=== PATIENT | female | born 1985 | race Caucasian/White ===

== ENCOUNTER → 2018-03-17 12:10 | Outpatient (REF) | payer MEDICAID, SELFPAY ==
--- NOTE | 2018-03-17 11:45 | PAPFT_PTH ---
PATIENT: Nicole Arita LOC: [facility] U#:[id number] AGE/SX: 40/F ROOM: RE03/17/[address]: OLEG Vargas : 1985 BED: DIS: SPEC #: [id number] RECD: 03/17/18 17:56 STATUS: KECIA REQ #: [id number] BILLY: 03/17/18 11:[address]: Jazlyn Rivera DEPT: [facility] Cytology RECD BY: Ramona Soares ENTERED: 03/17/18 17:56 SP TYPE: PAPFT OTHR DR: Sunita Lamar Tissues: 1 - CX/ENDOCX FOR PAP SMEARS Procedures: PAP THIN PREP/UVM Screening HPV DNA PROBE Comments: [id number]
[2018-03-18 14:53] LABS: Chlamydia Result Negative; GC Result Negative; Specimen Description CERVIX
== END ==
LOC: LBN 12:10
PROVIDERS: PCP Nurse Practitioner Adult Health; Visit Provider Nurse Practitioner Family
DX: Z11.3 Encounter for screening for infections with a predominantly sexual mode of transmission (principal); Z12.4 Encounter for screening for malignant neoplasm of cervix; Z11.51 Encounter for screening for human papillomavirus (HPV)
CPT/HCPCS: 87491; 87591; 88142; 87624

== ENCOUNTER 2020-06-15 16:54 | Emergency (ER) | payer MEDICAID, SELFPAY ==
[2020-06-15] VITALS (29 sets, daily range): BP systolic 99–120; BP diastolic 56–70; PULSE 82–103; RESP 10–21; TEMP 36.4; O2SAT 98–100
--- NOTE | 2020-06-15 16:45 | RT.EKG_ITS ---
APPROVED REPORT Exam: Resting ECG Patient Location: E HR:90 bpm ECG Measurements Heart Rate 90 AXIS [place] 132 P 52 QRSd 72 QRS 64 QT 354 T 45 QTc 434 Conclusion Sinus rhythm...normal P axis, V-rate 60- 99 normal sinus rhythm at 90, normal axis, no acute ischemic changes, no STEMI, nondiagnostic EKG
--- NOTE | 2020-06-15 17:21 | ED.GENADUL_ITS ---
Discharge Plan Disposition Patient Disposition: HOME Condition: Stable Discharge Details Clinical Impression: Chest pain, MA (dyspnea on exertion) Primary Care Provider: Sunshine Mccall ED Provider: Jn Ashton Home Meds and New Rx's Prescriptions: No Action No Known Home Meds RF: 0 Discharge Instructions Instructions: Chest Pain (ED), Dyspnea (ED) Additional Instructions: Please return immediately to the emergency department if you develop any new or worsening symptoms, if your condition does not improve as expected, or if you become otherwise concerned. It is extremely important that you call soon as possible to make an appointment to be seen in follow-up for this visit by your primary care doctor. Stand Alone Forms: PENDING COVID-19 TESTING Referrals: Sunshine Mccall [Primary Care Provider] - Discharge Data Discharge Date/Time-TO BE ENTERED AT DEPARTURE: 06/15/20 21:23 Medical Decision Making <Sara Huston MD - Last Filed: 06/29/20 22:44> Nicole Arita is a 35 y/o woman who presented to the emergency department with several days of chest heaviness/tightness worse with rest/lying flat and a sensation of increased shortness of breath during exertion. On exam Pt is well and non-toxic appearing. Benign cardiopulmonary exam. Concern for ACS (low risk by HEART score), PE, covid, other resp infection, pericarditis, other. Exam/hx at this time not c/w acute aortic pathology, sepsis. Plan for EKG, CXR, screening labs. If initial trop/EKG neg, plan for repeat. EKG okay. Labs reviewed, trop negative, d-dimer 294. CXR negative. Pt with no symptoms at reassessment. Repeat EKG neg. Pt signed out to Dr. Ashton at time of shift change with repeat trop, reassessment pending. Medical Records Medical records reviewed: Yes I reviewed the patient's medical records. Imaging Data Radiologic Study: Attestation: I personally reviewed and interpreted this imaging study as follows: Lab Data Lab results reviewed: Yes I reviewed the patient's lab results. ECG Data Attestation: I personally reviewed and interpreted this ECG (s) as follows: Interpretation: EKG shows normal sinus rhythm at 90, normal axis, no acute ische treva changes, no STEMI, nondiagnostic EKG Repeat EKG shows normal sinus rhythm at 87, normal axis, no acute ischemic changes, no major change from prior, nondiagnostic EKG <Jn Ashton MD - Last Filed: 06/15/20 21:18> Patient signed out to me pending repeat troponin. She had presented with CP and SOB and initially evaluated by Dr. Huston, please see her notes. Patient feeling better and asking for discharge. Repeat troponin is negative. COVID testing is pending. Patient to be discharged home. Lab Data Lab results reviewed: Yes I reviewed the patient's lab results. HPI <Sara Huston MD - Last Filed: 06/29/20 22:44> General Mode of arrival: ambulatory . Date/Time Provider Initiated Documentation: 06/15/20 17:00 . Limitations to Documentation: no limitations . Information obtained by: patient, RN notes reviewed and old records reviewed . HPI Narrative: Nicole Arita is a 35-year-old woman without reported history of major medical problems presenting to emergency department with chest pain, palpitations. Patient reports that approximate 5 days ago she noticed intermittent heaviness/tightness in her chest. Patient reports that this occurs several times throughout the day. Patient reports that since yesterday this sensation has been constant. She reports that it seems to improve with getting up and walking around and is more noticeable when she is lying down. Patient reports that yesterday and today she also noticed that with exertion such as climbing a flight of stairs she was developing a sensation of her heart racing and being unusually short of breath with that activity. Patient reports that she is a smoker and has a baseline cough that has not changed. She denies any other pain, fevers, vomiting, diarrhea, numbness, weakness, rash, swelling. Patient reports that she has no shortness of breath at rest. Patient states that she feels that her chest is currently somewhat tight but would not classify it as pain. She denies any personal or immediate family history of blood clot. Currently is taking no medications. Denies alcohol use, recreational drug use. Related Data Home Medications Medication Instructions Recorded Confirmed Unknown [No Known Home Meds] 06/15/20 06/15/20 Allergies Allergy/AdvReac Type Severity Reaction Status Date / Time No Known Drug Allergies Allergy Unverified 06/15/20 17:10 General Stated Complaint: Chest Pain CELSO: 2 Review of Systems <Sara Huston MD - Last Filed: 06/29/20 22:44> Narrative: Constitutional: denies fevers Eyes: denies eye pain ENT: denies ear pain, dental pain, sore throat Cardiovascular: denies edema, reports heart racing, chest pain Respiratory: reports chronic cough at baseline, MA GI: denies abdominal pain, vomiting, diarrhea : denies flank pain MSK: denies back pain, neck pain, arthralgias, myalgias Skin: denies rash Neuro: denies headaches, numbness, weakness PFSH <Sara Huston MD - Last Filed: 06/29/20 22:44> Surgical History (Updated 03/17/18 @ 12:17 by Jazlyn Rivera NP) Cervical Procedure LEEP in her late teens Family History Grandmother Breast cancer maternal Thyroid disorder maternal Social History Smoking/Tobacco Use Status: Current every day Smoking risk assessment performed?: Yes Alcohol Intake: never Drug use: Never Substance use type: does not use Do you feel safe at home: Yes Do you feel safe in your relationship?: Yes Exam <Sara Huston MD - Last Filed: 06/29/20 22:44> Narrative Exam Narrative: Constitutional: well and [id number], pleasant, conversing normally HENT: head atraumatic/normocephalic/normal inspection, mucous membranes moist Eyes: conjunctiva normal, sclera normal, pupils 3mm b/l Neck: no stridor, normal ROM, trachea midline Chest: normal inspection Resp: normal work of breathing, LCTAB Cardio: normal rate, normal rhythm, no murmur appreciated GI: abdomen soft, non-tender, non-distended Back: normal inspection, no rash Skin: warm, dry, normal color, no rash Neuro: alert, not altered, grossly non-focal, normal tone Ext: no edema, no posterior calf TTP Psych: normal mood, normal affect, normal behavior Course <Sara Huston MD - Last Filed: 06/29/20 22:44> Vital Signs Vital signs: Vital Signs Temperature 36.4 C L 06/15/20 17:03 Pulse 86 06/15/20 17:03 Respiratory Rate 16 06/15/20 17:03 Blood Pressure 120/70 06/15/20 17:03 Pulse Oximetry 100 06/15/20 17:03 Temperature 36.4 C L 06/15/20 17:03 Temperature Source Temporal Artery Scan 06/15/20 17:03 Pulse 86 06/15/20 17:03 Respiratory Rate 16 06/15/20 17:03 Respiratory Effort 06/15/20 17:09 Blood Pressure 120/70 06/15/20 17:03 Blood Pressure Position Supine 06/15/20 17:03 Pulse Oximetry 100 06/15/20 17:03 Oxygen Delivery Method Room Air 06/15/20 17:03 Oxygen Flow Rate 0 06/15/20 17:03 Pain Level 7 06/15/20 17:03 Sign Out <Sara Huston MD - Last Filed: 06/29/20 22:44> Sign Out Data: Sign Out Comment: Patient signed out to Dr. Ashton with repeat troponin, reassessment pending Last updated by Sara Huston MD at 06/15/20 20:43
[2020-06-15] MEDS: Normal Saline 1,000 ML 1000 ML IV ×2 (18:00→20:24)
[2020-06-15 18:32] LABS: Abs Immature Grans 0.01 10^3/uL (0.0-0.06); Absolute Basophil Count 0.07 10^3/uL (0.0-0.2); Absolute Eosinophil Count 0.27 10^3/uL (0.0-0.7); Absolute Lymphocyte Count 3.29 10^3/uL (1.2-3.4); Basophils % 0.8; Eosinophils % 2.9; HCT 36.6 % (36.0-46.0); HGB 11.9 g/dL (11.2-15.7); Immature Grans % 0.1; Lymphocytes % 35.6; MCHC 32.5 % (32.0-36.0); Monocytes % 6.5; Neutrophils % 54.1; Nucleated RBC 0 %; Platelet Count 172 10^3/uL (130-400); RBC 4.41 10^6/uL (3.93-5.22); RDW 14.9 % (11.7-14.6); RDW-SD 45.4 fL; WBC 9.24 10^3/uL (4.4-10.8)
[2020-06-15 18:42] LABS: ALT 10 U/L (14-59); AST 8 U/L (15-37); Albumin 4.1 g/dL (3.4-5.0); Alkaline Phosphatase 52 U/L (46-116); Anion Gap 9.6 mmol/L (3-11); BUN 14 mg/dL (7-18); Bilirubin, Total 0.2 mg/dL (0.2-1.0); CO2 25.4 mmol/L (21.0-32.0); CREATININE 0.83 mg/dL (0.55-1.02); Calcium 8.7 mg/dL (8.5-10.1); Chloride 105 mmol/L (98-107); Glucose 79 mg/dL (74-106); Potassium 3.7 mmol/L (3.5-5.1); Sodium 140 mmol/L (136-145); Total Protein 7.4 g/dL (6.4-8.2)
[2020-06-15 18:48] LABS: Troponin I < 0.05 ng/mL (<0.06)
[2020-06-15 19:20] LABS: D-Dimer 294 ng/mlFEU (<500)
--- NOTE | 2020-06-15 20:21 | DI.RAD_ITS ---
EXAM: XR PORTABLE CHEST AP CLINICAL HISTORY: SOB TECHNIQUE: 2D digital imaging was performed. COMPARISON: CR CHEST 2 VIEWS PA,LAT from 09/22/2013 FINDINGS: MEDIASTINUM: Normal. HEART: Normal. PULMONARY VASCULATURE: Normal. LUNGS: Clear. PLEURAL SPACE: No pleural effusion or pneumothorax. BONE:Within normal limits for the patient's age. OTHER FINDINGS:Normal. IMPRESSION: No acute pulmonary findings. DATA REPOSITORY: RADIATION DOSE DELIVERED:
--- NOTE | 2020-06-15 20:26 | DI.VRAD_ITS ---
PROCEDURE INFORMATION: Exam: XR Chest, 1 View Exam date and time: 06/15/2020 8:14 PM Age: 35 years old Clinical indication: Chest pain; Type not specified; Patient HX: SOB TECHNIQUE: Imaging protocol: XR of the chest Views: 1 view. COMPARISON: CR CHEST 2 VIEWS PA,LAT 09/22/2013 8:19 AM FINDINGS: Lungs: The lungs are clear. There is no pulmonary vascular congestion. Pleural space: No layering pleural effusions are identified. There is no evidence of pneumothorax. Heart/Mediastinum: The cardiomediastinal silhouette is within limits. Bones/joints: Unremarkable. IMPRESSION: No active cardiopulmonary disease identified. Unchanged exam. Dictated and Authenticated by: Luis Kim MD. Ordering:JOSSELYN Ruiz MD
--- NOTE | 2020-06-15 20:30 | RT.EKG_ITS ---
APPROVED REPORT Exam: Resting ECG Patient Location: E HR:87 bpm ECG Measurements Heart Rate 87 AXIS GA 153 P 9 QRSd 75 QRS 1 QT 364 T 22 QTc 438 Conclusion Sinus rhythm...normal P axis, V-rate 60- 99 normal sinus rhythm at 87, normal axis, no acute ischemic changes, no major change from prior, nondia gnostic EKG
[2020-06-15 20:56] LABS: Troponin I < 0.05 ng/mL (<0.06)
[2020-06-19 15:41] LABS: Patient Race White; SARS-CoV-2 RNA Undetected (Undetected); SARS-CoV-2 Specimen Source Nasopharynx
--- NOTE | 2020-06-19 17:05 | NUR.NOTE ---
06/19/2020 @ 1704 left mssage to return call to ED for test results.
--- NOTE | 2020-06-19 17:22 | NUR.NOTE ---
patient returned call and after verifying identity, advised pt. that covid test result was negative.
== END 2020-06-15 21:23 | disposition home or self-care (01) ==
PROVIDERS: Student in an Organized Health Care Education/Training Program; Emergency Provider Emergency Medicine; PCP Nurse Practitioner
DX: R07.89 Other chest pain (principal); R06.09 Other forms of dyspnea; R00.2 Palpitations; Z11.59 Encounter for screening for other viral diseases
CPT/HCPCS: 36415; 80053; 93005; 96361; 99285; U0003; 71045; 84484; 85025; 85379; 93010; 99284

== ENCOUNTER 2021-08-14 18:47 | Emergency (ER) | payer BC, MEDICAID, SELFPAY ==
[2021-08-14 18:57] VITALS: BP 110/62; PULSE 81; RESP 18; TEMP 36.6; O2SAT 100
--- NOTE | 2021-08-14 19:39 | W.ED.GENAD ---
Discharge Plan Disposition Patient Disposition: HOME Condition: Stable Discharge Details Clinical Impression: Anemia, , Nausea and vomiting during Primary Care Provider: Sunshine Mccall ED Provider: Leti Hamilton Home Meds and New Rx's Prescriptions: New ondansetron 4 mg tablet,disintegrating 4 mg PO Q6H PRN (Reason: nausea and vomiting) Qty: 10 RF: 0 Discharge Instructions Instructions: Ondansetron (By mouth), Acute Nausea and Vomiting (ED), Anemia (ED) Additional Instructions: Your labs are concerning for anemia. As we discussed, you do have some pending studies for this. I would like you to discuss this with your MEDICAL STAFF MANAGER tomorrow at your upcoming appointment. As we discussed, you will likely need to begin an iron supplement. Your urine did show dehydration. You received a liter of fluids here and are tolerating oral fluids well. You were given Zofran while here and we are sending you home with the same. You may use 1 tablet dissolving under your tongue every 6 hours as needed for any recurrent severe nausea or vomiting. Please encourage hydration. Please advance her diet slowly and begin with simple/easy digest food such as bananas, rice, applesauce, toast. If he develop fever/chills, abdominal pain, inability stay hydrated, vaginal discharge, cramping, fever/chills or new/worsening symptoms please seek care urgently once again. Referrals: Sunshine Mccall [Primary Care Provider] - Christine Cobb MD [ [facility] STAFF PHYSICIAN] - Medical Decision Making Patient is a pleasant 36-year-old female presenting today with chief complaint of nausea and vomiting. Patient reports that she has recently had a positive home test and estimates herself to be 6 weeks gestation. She has not yet seen MEDICAL STAFF MANAGER but does have an appointment with them tomorrow. She states that she has had 4 previous pregnancies, her youngest child is 11. She reports that with 2 of her pregnancies she suffered from hyperemesis gravidarum. She reports that she had normal pregnancies otherwise with spontaneous vaginal deliveries. She reports that for the past week she has had persistent nausea and diminished appetite. Over the past few days has had vomiting. States that she has vomited x3 today. Denies any blood in her emesis. No change in her bowel habits. She denies any abdominal pain. No fevers or chills. No previous abdominal surgeries. Denies any vaginal discharge from the cramping or bleeding. On exam, patient appears nontoxic. Vital signs are stable. Lungs are clear to minimal cardiac exam. Abdomen is benign. No CVA tenderness. Primarily concerned at this time for dehydration and nausea/vomiting in the setting of the first trimester . We will obtain urine test. We will also obtain CBC and CMP as I am concerned for potential electrolyte abnormalities. Her exam and history is not consistent with ovarian torsion or other surgical pathology of her abdomen. Patient feeling significantly improved after IV Zofran and liter of fluids. She is tolerating fluid orally now here. Labs reviewed. No leukocytosis. Patient is notably anemic with a hemoglobin of 8.9. She has been anemic historically but not to this degree and has not 2014. I did discuss with the patient. Her MCV is low. I did send out iron and ferritin studies. Patient is feeling so clinically improved, will have her discuss the results of this tomorrow with her MEDICAL STAFF MANAGER at her follow-up appointment. She reports that since receiving her COVID-19 vaccination several months ago she been having significantly heavier periods and feeling like I am going to bleed to . Clearly, this stopped with her but may be the cause of her anemia today. I did recommend beginning iron supplementation. Patient is vegetarian and would like to try more of a plant blade regimen and will discuss tomorrow with obstetrics. CMP is without significant abnormality. Her urine is significant for dehydration with an elevated specific gravity ketones. No protein in the urine or evidence to suggest infection. Discussed the findings with the patient. Patient feels ready for discharge at this time. Encourage frequent sips of fluids and hydration. We did discuss slow advancement of her diet. We will send home with Francesco for tonight and prescribe some for her tomorrow at the pharmacy. She has an appointment tomorrow with MEDICAL STAFF MANAGER. Strict return precautions were discussed. All of her questions concerns were addressed and she is in agreement with this plan. HPI General Mode of arrival: ambulatory. Date/Time Provider Initiated Documentation: 08/14/21 18:48. Limitations to Documentation: no limitations. Information obtained by: patient and RN notes reviewed. History of Present Illness 36 year old F presents to the emergency department with the chief complaint of dehydration, nausea/vomiting in first trimester of , described as moderate and similar to prior episodes (hx of hyperemesis gravidum with 2 of her previous pregnancies), Quality is described as other (patient denies any pain, only sensation has been nausea), and is localized to the abdomen. Patient reports no radiation. Patient started experiencing this week(s) (1) and it has been constant. No relieving factors improve symptom(s), Eating worsens symptoms . Patient notes loss of appetite, nausea/vomiting and other (denies abdominal pain, cramping, vaginal discharge or bleeding); denies chest pain, cough, fever/chills, rash and shortness of breath. Patient did receive the following treatments prior to arrival, none Related Data Home Medications Medication Instructions Recorded Confirmed ondansetron 4 mg PO Q6H PRN #10 tab 08/14/21 Previous Rx's Medication Instructions Recorded ondansetron 4 mg PO Q6H PRN #10 tab 08/14/21 Allergies Allergy/AdvReac Type Severity Reaction Status Date / Time No Known Drug Allergies Allergy Unverified 06/15/20 17:10 General Stated Complaint: Nausea/Vomit/Diar CELSO: 3 Review of Systems Constitutional Constitutional: Reports as per HPI, Denies chills, Reports fatigue, Denies fever(s) and Reports poor appetite Cardiovascular Cardiovascular: Reports as per HPI, Denies chest pain and Denies dyspnea Respiratory Respiratory: Reports as per HPI, Denies cough and Denies dyspnea Gastrointestinal Gastrointestinal: Reports as per HPI, Denies abdominal pain, Denies change in bowel habits, Reports nausea, Reports vomiting and Denies hematemesis Genitourinary Genitourinary: Denies abnormal vaginal bleeding, Reports amenorrhea (6wks gestation), Denies hematuria and Denies vaginal discharge Musculoskeletal Musculoskeletal: Reports as per HPI and Denies back pain Integumentary/Breasts Skin/Breast: Reports as per HPI and Denies rash Neurologic Neurologic: Reports as per HPI Endocrine Endocrine: Reports fatigue PFSH All Active Problems (Updated 08/14/21 @ 20:48 by ANITRA Le) Anemia (Chronic) (Acute) Nausea and vomiting during (Acute) Surgical History Cervical Procedure LEEP in her late teens Family History Grandmother Breast cancer maternal Thyroid disorder maternal Social History Smoking/Tobacco Use Status: Current every day Smoking risk assessment performed?: Yes Alcohol Intake: never Drug use: Never Substance use type: does not use Do you feel safe at home: Yes Do you feel safe in your relationship?: Yes Exam Const General: cooperative, healthy appearing, comfortable, no acute distress and well developed Nutritional Appearance: average body habitus and well nourished Orientation: alert and awake Resp Effort & Inspection: normal respiratory effort, able to speak in complete sentences and no respiratory distress Auscultation: clear to auscultation bilaterally, no rales, no rhonchi and no wheezes Cardio Rate: regular rate Rhythm: regular rhythm Heart Sounds: S1 normal and S2 normal GI Inspection: normal to inspection Palpation: soft, no hepatosplenomegaly, not firm, no guarding, no masses, not rigid and nontender Percussion: normal to percussion Auscultation: normal bowel sounds Back/Spine/Pelvis Back: no CVA tenderness Skin General skin exam: no rashes or lesions noted Trauma: no lacerations or abrasions Neuro General: patient alert and patient awake Cognition: normal cognition Speech: speech normal Gait: normal gait Psych Appearance: grossly normal and well kempt Mental Status: mental status grossly normal Speech and Movement: speech and movement normal Course Vital Signs Vital signs: Vital Signs Temperature 36.6 C 08/14/21 18:57 Pulse 81 08/14/21 18:57 Respiratory Rate 18 08/14/21 18:57 Blood Pressure 110/62 08/14/21 18:57 Pulse Oximetry 100 08/14/21 18:57 Temperature 36.6 C 08/14/21 18:57 Temperature Source Temporal Artery Scan 08/14/21 18:57 Pulse 81 08/14/21 18:57 Respiratory Rate 18 08/14/21 18:57 Respiratory Effort 08/14/21 19:00 Blood Pressure 110/62 08/14/21 18:57 Blood Pressure Position Supine 08/14/21 18:57 Pulse Oximetry 100 08/14/21 18:57 Oxygen Delivery Method Room Air 08/14/21 18:57 Oxygen Flow Rate 0 08/14/21 18:57 Pain Level 2 08/14/21 18:57
[2021-08-14] MEDS: Normal Saline 1,000 ML 1000 ML IV (19:58)
[2021-08-14] MEDS: Ondansetron 4 MG/2 ML VIAL IVP (19:58)
[2021-08-14 20:06] LABS: Bilirubin Negative (Negative); Blood Negative (Negative); Clarity Clear (Clear); Glucose Negative (Negative); Ketones >=160 mg/dL (Negative); Leukocyte Esterase Negative (Negative); Nitrite Negative (Negative); Specific Gravity >= 1.030 (1.005-1.025); Urobilinogen 0.2 EU/dL (Up TO 0.2)
[2021-08-14 20:15] LABS: ALT 18 U/L (14-59); AST 9 U/L (15-37); Albumin 3.6 g/dL (3.4-5.0); Alkaline Phosphatase 49 U/L (46-116); Anion Gap 8.8 mmol/L (3-11); BUN 12 mg/dL (7-18); Bilirubin, Total 0.3 mg/dL (0.2-1.0); CO2 24.2 mmol/L (21.0-32.0); CREATININE 0.6 mg/dL (0.55-1.02); Calcium 8.4 mg/dL (8.5-10.1); Chloride 103 mmol/L (98-107); Glucose 86 mg/dL (74-106); Magnesium 1.9 mg/dL (1.8-2.4); Potassium 3.5 mmol/L (3.5-5.1); Sodium 136 mmol/L (136-145)
[2021-08-14 20:27] LABS: Abs Immature Grans 0.02 10^3/uL (0.0-0.06); Absolute Basophil Count 0.05 10^3/uL (0.0-0.2); Absolute Eosinophil Count 0.08 10^3/uL (0.0-0.7); Absolute Lymphocyte Count 2.31 10^3/uL (1.2-3.4); Basophils % 0.6; Eosinophils % 0.9; HGB 8.9 g/dL (11.2-15.7); Immature Grans % 0.2; Lymphocytes % 25.5; MCH 22.8 pg (27.0-33.0); MCHC 29.7 % (32.0-36.0); MCV 76.7 fL (80-95); MPV 12.5 fL (8.0-11.0); Monocytes % 6.6; Neutrophils % 66.2; Nucleated RBC 0 %; Platelet Count 232 10^3/uL (130-400); RBC 3.91 10^6/uL (3.93-5.22); RDW 15.4 % (11.7-14.6); RDW-SD 42.1 fL; WBC 9.06 10^3/uL (4.4-10.8)
[2021-08-14 20:49] VITALS: BP 110/62; PULSE 81; RESP 18; TEMP 36.6; O2SAT 100
[2021-08-14] MEDS: Ondansetron O.D.T. 4 MG TABEF, 3 TABS/BTL PO (20:58)
[2021-08-14 21:11] LABS: Iron 23 ug/dL (50-170)
[2021-08-14 21:13] LABS: Diff Comment RBC Morph Reviewed; Hypochromasia 1+; Microcytosis 1+
[2021-08-14 21:25] LABS: Ferritin 7 ng/mL (8-252)
== END 2021-08-14 20:57 | disposition home or self-care (01) ==
PROVIDERS: Emergency Provider Physician Assistant; PCP Nurse Practitioner
DX: O21.8 Other vomiting complicating pregnancy (principal); Z3A.01 Less than 8 weeks gestation of pregnancy; D64.9 Anemia, unspecified
CPT/HCPCS: 80053; 81025; 96361; 96374; 99284; 81003; 82728; 83540; 83735; 85025; J2405

== ENCOUNTER 2021-09-22 19:20 | Outpatient (CLI) | payer BC, MEDICAID, SELFPAY | END 2021-09-22 19:21 | disposition home or self-care (01) | LOC: LBO 19:21 | PROVIDERS: PCP Nurse Practitioner; Visit Provider Advanced Practice Midwife | DX: O20.0 Threatened abortion (principal) | CPT/HCPCS: 86850; 86900; 86901; 90384 ==

== ENCOUNTER 2021-09-28 04:25 | Outpatient (CLI) | payer BC, MEDICAID, SELFPAY ==
[2021-09-28 16:19] LABS: Kit/Specimen SENT
[2021-09-28 16:43] LABS: Abs Immature Grans 0.03 10^3/uL (0.0-0.06); Absolute Basophil Count 0.05 10^3/uL (0.0-0.2); Absolute Eosinophil Count 0.14 10^3/uL (0.0-0.7); Absolute Lymphocyte Count 2.33 10^3/uL (1.2-3.4); Absolute Monocyte Count 0.63 10^3/uL (0.1-0.8); Absolute Neutrophil Count 7.27 10^3/uL (1.2-6.7); Basophils % 0.5; Eosinophils % 1.3; HCT 30.7 % (36.0-46.0); HGB 9.6 g/dL (11.2-15.7); Immature Grans % 0.3; Lymphocytes % 22.3; MCH 24.3 pg (27.0-33.0); MCHC 31.3 % (32.0-36.0); MCV 77.7 fL (80-95); MPV 11.7 fL (8.0-11.0); Neutrophils % 69.6; Nucleated RBC 0 %; Platelet Count 180 10^3/uL (130-400); RBC 3.95 10^6/uL (3.93-5.22); RDW 18.2 % (11.7-14.6); RDW-SD 51.8 fL; WBC 10.45 10^3/uL (4.4-10.8)
[2021-10-01 14:00] LABS: Varicella IgG Antibody Positive (See Note)
[2021-10-01 14:02] LABS: Rubella IgG Ab (UVM) Negative (See Note)
[2021-10-02 10:13] LABS: Hepatitis C Ab w Rflx HCV PCR Negative (Negative)
[2021-10-02 10:36] LABS: Hepatitis B Surface Ag Negative (Negative)
[2021-10-02 11:42] LABS: HIV-1/2 Ag & Ab Screen Negative (Negative)
[2021-10-02 15:09] LABS: Syphilis IgG w/Reflex Nonreactive (Nonreactive)
[2021-10-02 22:46] LABS: Specimen WB Whole Blood
[2021-10-07 21:46] LABS: Result Summary NEGATIVE; Specimen WB Whole Blood
== END 2021-09-28 04:26 | disposition home or self-care (01) ==
LOC: LBO 04:25
PROVIDERS: Advanced Practice Midwife; PCP Nurse Practitioner; Visit Provider Obstetrics & Gynecology
DX: Z34.91 Encounter for supervision of normal pregnancy, unspecified, first trimester (principal)
CPT/HCPCS: 81329; 86787; 86803; 86850; 86900; 86901; 87340; 87389; 81220; 85025; 86762; 86780; 86870

== ENCOUNTER 2021-09-28 16:12 | Outpatient (REF) | payer BC, MEDICAID, SELFPAY ==
--- NOTE | 2021-09-28 15:35 | PAPFT_PTH ---
PATIENT: Nicole Arita LOC: [facility] U#:[id number] AGE/SX: 36/F ROOM: RE09/28/[address]: Tonya Camacho : 1985 BED: DIS: 09/28/2021 SPEC #: [id number] RECD: 09/28/21 17:44 STATUS: KECIA RECharisse #: [id number] BILLY: 09/28/21 15:[address]: Tonya Camacho [facility] Cytology RECD BY: Ramona Soares ENTERED: 09/28/21 17:44 SP TYPE: PAPFT OTHR DR: Sunshine Mccall Tissues: 1 - CX/ENDOCX FOR PAP SMEARS Procedures: PAP THIN PREP/UVM Screening HPV DNA PROBE Comments: [id number]
[2021-09-28 17:13] LABS: *AMPHETAMINES SCREEN URINE Negative (Negative); *BARBITURATES SCREEN URINE Negative (Negative); *BENZODIAZEPINES SCREEN URINE Negative (Negative); Cannabinoids THC Negative (Negative); Cocaine Screen,Urine Negative (Negative); METHADONE URINE SCREEN Negative (Negative); OPIATES URINE SCREEN Negative (Negative)
[2021-09-28 17:14] LABS: Tricyclic Antidepressants Negative (Negative)
[2021-10-02 14:17] LABS: Chlamydia Result Negative (Negative); GC Result Negative (Negative)
[2021-10-05 10:31] LABS: Buprenorphine Negative ng/mL (Cutoff: 5.0); Norbuprenorphine Negative ng/mL (Cutoff: 2.5)
== END 2021-09-28 16:13 | disposition home or self-care (01) ==
LOC: LBN 16:12
PROVIDERS: PCP Nurse Practitioner; Visit Provider Advanced Practice Midwife
DX: Z34.91 Encounter for supervision of normal pregnancy, unspecified, first trimester (principal); Z12.4 Encounter for screening for malignant neoplasm of cervix; Z11.51 Encounter for screening for human papillomavirus (HPV)
CPT/HCPCS: 80307; 87491; 87591; 88142; 87086; 87624

== ENCOUNTER 2021-11-15 12:58 | Outpatient (REF) | payer BC, MEDICAID, SELFPAY | END 2021-11-15 12:59 | disposition home or self-care (01) | LOC: LBN 12:58 | PROVIDERS: PCP Nurse Practitioner; Visit Provider Advanced Practice Midwife | DX: Z34.92 Encounter for supervision of normal pregnancy, unspecified, second trimester (principal); Z3A.19 19 weeks gestation of pregnancy | CPT/HCPCS: 87086; 87480; 87510; 87660 ==

== ENCOUNTER 2022-01-12 01:39 | Outpatient (CLI) | payer BC, MEDICAID, SELFPAY ==
[2022-01-12 14:10] LABS: HCT 33.3 % (36.0-46.0); HGB 10.8 g/dL (11.2-15.7); MCH 27.8 pg (27.0-33.0); MCHC 32.4 % (32.0-36.0); MCV 86 fL (80-95); MPV 12.5 fL (8.0-11.0); Platelet Count 141 10^3/uL (130-400); RBC 3.89 10^6/uL (3.93-5.22); WBC 11.25 10^3/uL (4.4-10.8)
[2022-01-12 14:17] LABS: Glucose,1 Hr (Glucola) 187 mg/dL (80-140)
== END 2022-01-12 01:40 | disposition home or self-care (01) ==
LOC: LBO 01:39
PROVIDERS: Advanced Practice Midwife; PCP Nurse Practitioner; Visit Provider Advanced Practice Midwife
DX: O09.523 Supervision of elderly multigravida, third trimester (principal); Z67.91 Unspecified blood type, Rh negative; Z3A.28 28 weeks gestation of pregnancy
CPT/HCPCS: 36415; 82950; 85027; 86850; 90384; 86870

== ENCOUNTER 2022-01-23 02:33 | Outpatient (CLI) | payer BC, MEDICAID, SELFPAY | END 2022-01-23 02:34 | disposition home or self-care (01) | LOC: LBO 02:33 | PROVIDERS: PCP Nurse Practitioner; Visit Provider Advanced Practice Midwife ==

== ENCOUNTER 2022-01-23 02:44 | Outpatient (CLI) | payer BC, MEDICAID, SELFPAY ==
[2022-01-23 09:13] LABS: Glucose 1 Hour 97 mg/dL
[2022-01-23 11:17] LABS: Glucose 3 Hour 80 mg/dL
== END 2022-01-23 02:45 | disposition home or self-care (01) ==
LOC: LBO 02:44
PROVIDERS: PCP Nurse Practitioner; Visit Provider Advanced Practice Midwife
DX: Z34.93 Encounter for supervision of normal pregnancy, unspecified, third trimester (principal); Z3A.29 29 weeks gestation of pregnancy
CPT/HCPCS: 36415; 82951

== ENCOUNTER → 2022-02-16 00:36 | Outpatient (CLI) | payer BC, MEDICAID, SELFPAY ==
--- NOTE | 2022-02-16 07:45 | DI.US_ITS ---
Exam(s) US OB KRYSTA WEIGHT EXAM: US OB KRYSTA WEIGHT CLINICAL HISTORY: growth and KRYSTA,h/o covid,circumvallate [id number]. TECHNIQUE: Transabdominal obstetrical ultrasound performed. COMPARISON: US US OB 1ST TRIMESTER from 09/22/2021 FINDINGS:: Number of fetuses: One. position: Vertex. Placental location: Posterior. No evidence of previa. A circumvallate placenta is not demonstrated on the current exam the could be partially obscured by the fetus. BIOMETRIC DATA: BPD: 82mm = 32+ 6 weeks HC: 298 mm = 33+ 0 weeks AC: 297mm = 33+5 weeks FL: 64 mm = 32+ 6 weeks EFW: 2167 Gms = 51% Composite Age: 33+1 weeks EDC: 05 April 2022 Heart Rate: 141 BPM Amniotic fluid index: 6.1 cm. Amount of fluid is visually within normal limits. IMPRESSION: size and weight are within the expected range. DATA REPOSITORY:
== END ==
PROVIDERS: PCP Nurse Practitioner; Visit Provider Advanced Practice Midwife
DX: O43.113 Circumvallate placenta, third trimester (principal); Z86.16 Personal history of COVID-19
CPT/HCPCS: 76816

== ENCOUNTER 2022-02-20 05:05 | Outpatient (CLI) | payer BC, MEDICAID, SELFPAY ==
[2022-02-20 15:00] VITALS: BP 97/60; PULSE 89; TEMP 36.5
--- NOTE | 2022-02-20 16:07 | W.OBNST ---
Date of service: 02/20/22 Time of Service: 16:08 NST Evaluation Reason for NST Reasons for Nonstress Test: OLIGOHYDRAMNIOS Gestational Age Gestational Age in Weeks and Days: 33 Weeks and 4Days Test and Monitor Explained Test/Monitor Explained: Test Explained, Monitor Explained and Patient Verbalized Understanding Vital Signs Blood Pressure: 97/60 Pulse: 89 Temperature: 97.7 F Urine Results Urine Protein: Negative Urine Ketones: Positive Urine Glucose: Negative Urine Blood: Negative NST Information Date on Monitor: 02/20/22 Time on Monitor: 15:00 Date off Monitor: 02/20/22 Time off Monitor: 15:52 Total Time on Monitor: 52 NST Interventions: PO Hydration Contraction Frequency: none noted NST Evaluation FHR Baseline: 125 Variability: Moderate 6-25 bpm Accelerations: 10x10 Decelerations: None Note NST Note Note: US due to low KRYSTA. twice weekly NST and repeat KRYSTA scheduled for 02/23. NST Reviewed and Verified by: Tonya Camacho
[2022-02-20 16:08] VITALS: BP 97/60; PULSE 89; TEMP 36.5
== END 2022-02-20 15:50 | disposition home or self-care (01) ==
LOC: BCD 05:06 → OBS 13:51 → BCD 15:09 → OBS 15:30
PROVIDERS: PCP Nurse Practitioner; Visit Provider Advanced Practice Midwife
DX: O41.03X0 Oligohydramnios, third trimester, not applicable or unspecified (principal); Z3A.33 33 weeks gestation of pregnancy
CPT/HCPCS: 59025

== ENCOUNTER 2022-02-23 09:35 | Outpatient (CLI) | payer BC, MEDICAID, SELFPAY ==
[2022-02-23 15:17] VITALS: BP 110/69; PULSE 90; TEMP 36.7
[2022-02-23 15:28] VITALS: BP 110/69; PULSE 90
--- NOTE | 2022-02-23 17:15 | W.OBNST ---
Date of service: 02/23/22 Time of Service: 15:30 NST Evaluation Reason for NST Reasons for Nonstress Test: OLIGOHYDRAMNIOS and OTHER, SEE COMMENT Reason for NST Other: & 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Gestational Age Gestational Age in Weeks and Days: 34 Weeks and 0Days Test and Monitor Explained Test/Monitor Explained: Test Explained, Monitor Explained and Patient Verbalized Understanding Vital Signs Blood Pressure: 110/69 Pulse: 90 Temperature: 98.1 F Urine Results Urine Protein: Negative Urine Ketones: Negative Urine Glucose: Negative Urine Blood: Negative NST Information Date on Monitor: 02/23/22 Time on Monitor: 15:02 Date off Monitor: 02/23/22 Time off Monitor: 16:01 Total Time on Monitor: 59 NST Interventions: PO Hydration Contraction Frequency: Occasional NST Evaluation Patient States Movement: Present FHR Baseline: 130 Variability: Absent Accelerations: 15x15 and Prolonged Decelerations: None NST Results: Reactive Note NST Note Note: KRYSTA is 9.48 Pt discharged to home, RTO 1 wk Recheck KRYSTA in 2 wks NST Reviewed and Verified by: Vivi Alonzo
[2022-02-23 17:16] VITALS: BP 110/69; PULSE 90; TEMP 36.7
== END 2022-02-23 16:30 | disposition home or self-care (01) ==
LOC: BCD 09:37 → OBS 14:59
PROVIDERS: PCP Nurse Practitioner; Visit Provider Advanced Practice Midwife
DX: O43.113 Circumvallate placenta, third trimester (principal); O41.03X0 Oligohydramnios, third trimester, not applicable or unspecified; Z3A.34 34 weeks gestation of pregnancy
CPT/HCPCS: 59025

== ENCOUNTER 2022-02-27 07:43 | Outpatient (CLI) | payer BC, MEDICAID, SELFPAY | END 2022-02-27 07:44 | disposition home or self-care (01) | PROVIDERS: PCP Nurse Practitioner; Visit Provider Advanced Practice Midwife ==

== ENCOUNTER 2022-03-02 07:31 | Outpatient (CLI) | payer BC, MEDICAID, SELFPAY ==
[2022-03-02 14:59] VITALS: BP 108/69; PULSE 98; TEMP 36.8
[2022-03-02 15:05] VITALS: BP 108/69; PULSE 98
--- NOTE | 2022-03-02 15:45 | W.OBNST ---
Date of service: 03/02/22 Time of Service: 15:45 NST Evaluation Reason for NST Reasons for Nonstress Test: OTHER, SEE COMMENT Reason for NST Other: placenta irregulaity Gestational Age Gestational Age in Weeks and Days: 35 Weeks and 0Days Test and Monitor Explained Test/Monitor Explained: Test Explained Vital Signs Blood Pressure: 108/69 Pulse: 98 Temperature: 98.2 F Urine Results Urine Protein: Positive Urine Ketones: Positive Urine Glucose: Negative Urine Blood: Negative NST Information Date on Monitor: 03/02/22 Time on Monitor: 14:55 Date off Monitor: 03/02/22 Time off Monitor: 15:32 Total Time on Monitor: 37 NST Interventions: PO Hydration Contraction Frequency: q5 NST Evaluation Patient States Movement: Present FHR Baseline: 130 Variability: Moderate 6-25 bpm Accelerations: 15x15 Decelerations: None NST Results: Reactive Note NST Note Note: Nicole is feeling well. Has no questions or concerns. Baby is active and NST is reactive and reassuring. Will return in 1 week for NST and KRYSTA. DIANE NST Reviewed and Verified by: Tonya Scruggs
[2022-03-02 15:46] VITALS: BP 108/69; PULSE 98; TEMP 36.8
== END 2022-03-02 15:45 | disposition home or self-care (01) ==
LOC: BCD 07:32 → OBS 14:40
PROVIDERS: PCP Nurse Practitioner; Visit Provider Advanced Practice Midwife
DX: O43.113 Circumvallate placenta, third trimester (principal); Z3A.35 35 weeks gestation of pregnancy
CPT/HCPCS: 59025

== ENCOUNTER 2022-03-09 11:12 | Outpatient (CLI) | payer BC, MEDICAID, SELFPAY ==
[2022-03-09 16:58] VITALS: BP 109/68; PULSE 68; TEMP 36.8
[2022-03-09 17:01] VITALS: BP 109/68; PULSE 100
--- NOTE | 2022-03-10 07:35 | W.OBNST ---
Date of service: 03/09/22 Time of Service: 17:15 NST Evaluation Reason for NST Reasons for Nonstress Test: OTHER, SEE COMMENT Reason for NST Other: circumvalient placenta Gestational Age Gestational Age in Weeks and Days: 35 Weeks and 5Days Test and Monitor Explained Test/Monitor Explained: Test Explained Vital Signs Blood Pressure: 109/68 Pulse: 68 Temperature: 98.2 F Urine Results Urine Protein: Negative Urine Ketones: Negative Urine Glucose: Negative Urine Blood: Negative NST Information Date on Monitor: 03/09/22 Time on Monitor: 16:44 Date off Monitor: 03/09/22 Time off Monitor: 17:08 Total Time on Monitor: 24 NST Interventions: None Contraction Frequency: none noted NST Evaluation Patient States Movement: Present FHR Baseline: 120 Variability: Moderate 6-25 bpm Accelerations: 15x15 Decelerations: None Note KRYSTA Results of KRYSTA: 14.6 NST Note Note: Weekly NST's scheduled Recheck KRYSTA in 2-3 weeks Scan shows cephalic presentation, ROP NST Reviewed and Verified by: Vivi Alonzo
[2022-03-10 07:36] VITALS: BP 109/68; PULSE 68; TEMP 36.8
== END 2022-03-09 17:32 | disposition home or self-care (01) ==
LOC: BCD 11:13 → OBS 16:49
PROVIDERS: PCP Nurse Practitioner Family; Visit Provider Advanced Practice Midwife
DX: O43.113 Circumvallate placenta, third trimester (principal); Z3A.35 35 weeks gestation of pregnancy
CPT/HCPCS: 59025

== ENCOUNTER 2022-03-16 05:53 | Outpatient (CLI) | payer BC, MEDICAID, SELFPAY ==
[2022-03-16 14:46] VITALS: BP 120/79; PULSE 86; TEMP 36.9
[2022-03-16 15:11] VITALS: BP 120/79; PULSE 86
[2022-03-16 15:21] VITALS: BP 120/79; PULSE 86; TEMP 36.9
--- NOTE | 2022-03-16 15:21 | W.OBNST ---
Date of service: 03/16/22 Time of Service: 15:21 NST Evaluation Reason for NST Reasons for Nonstress Test: OTHER, SEE COMMENT Reason for NST Other: cickumvalent placenta Gestational Age Gestational Age in Weeks and Days: 37 Weeks and 0Days Test and Monitor Explained Test/Monitor Explained: Test Explained and Monitor Explained Vital Signs Blood Pressure: 120/79 Pulse: 86 Temperature: 98.4 F NST Information Date on Monitor: 03/16/22 Time on Monitor: 14:45 Date off Monitor: 03/16/22 Time off Monitor: 15:11 Total Time on Monitor: 26 NST Interventions: PO Hydration NST Evaluation Patient States Movement: Present FHR Baseline: 140 Variability: Moderate 6-25 bpm Accelerations: 15x15 Decelerations: None NST Results: Reactive Note NST Note Note: repeat NST and fluid check next NST Reviewed and Verified by: Vivi Alonzo
== END 2022-03-16 15:14 | disposition home or self-care (01) ==
LOC: BCD 05:55 → OBS 14:44
PROVIDERS: PCP Nurse Practitioner Family; Visit Provider Advanced Practice Midwife
DX: O43.113 Circumvallate placenta, third trimester (principal); Z3A.37 37 weeks gestation of pregnancy
CPT/HCPCS: 59025

== ENCOUNTER 2022-03-16 18:16 | Outpatient (REF) | payer BC, MEDICAID, SELFPAY ==
[2022-03-16 20:21] LABS: *AMPHETAMINES SCREEN URINE Negative (Negative); *BARBITURATES SCREEN URINE Negative (Negative); *BENZODIAZEPINES SCREEN URINE Negative (Negative); Cannabinoids THC Negative (Negative); Cocaine Screen,Urine Negative (Negative); METHADONE URINE SCREEN Negative (Negative); OPIATES URINE SCREEN Negative (Negative)
[2022-03-16 20:24] LABS: Tricyclic Antidepressants Negative (Negative)
[2022-03-23 11:42] LABS: Buprenorphine Negative ng/mL (Cutoff: 5.0); Norbuprenorphine Negative ng/mL (Cutoff: 2.5)
== END 2022-03-16 18:17 | disposition home or self-care (01) ==
LOC: LBN 18:16
PROVIDERS: PCP Nurse Practitioner Family; Visit Provider Advanced Practice Midwife
DX: Z34.93 Encounter for supervision of normal pregnancy, unspecified, third trimester (principal); Z36.85 Encounter for antenatal screening for Streptococcus B; Z3A.37 37 weeks gestation of pregnancy
CPT/HCPCS: 80307; 87081

== ENCOUNTER 2022-03-22 12:17 | Outpatient (CLI) | payer BC, MEDICAID, SELFPAY ==
[2022-03-22 15:14] VITALS: BP 133/70; PULSE 100; TEMP 36.6
--- NOTE | 2022-03-22 15:57 | W.OBNST ---
Date of service: 03/22/22 Time of Service: 15:57 NST Evaluation Reason for NST Reasons for Nonstress Test: OTHER, SEE COMMENT Reason for NST Other: well being r/t circumvalant placenta Gestational Age Gestational Age in Weeks and Days: 37 Weeks and 6Days Test and Monitor Explained Test/Monitor Explained: Test Explained and Monitor Explained Vital Signs Blood Pressure: 133/70 Pulse: 100 Temperature: 97.9 F NST Information Date on Monitor: 03/22/22 Time on Monitor: 15:12 Date off Monitor: 03/22/22 Time off Monitor: 15:32 Total Time on Monitor: 20 NST Interventions: PO Hydration NST Evaluation Patient States Movement: Present FHR Baseline: 145 Variability: Moderate 6-25 bpm Accelerations: 15x15 Decelerations: None NST Results: Reactive Note KRYSTA Results of KRYSTA: 16.5 NST Note Note: Next NST in 1 week Cvx checked at pt request: ft/th posterior, vtx OOP, ROP NST Reviewed and Verified by: Vivi Alonzo
[2022-03-22 15:58] VITALS: BP 133/70; PULSE 100; TEMP 36.6
== END 2022-03-22 15:55 | disposition home or self-care (01) ==
LOC: BCD 15:26 → OBS 15:57
PROVIDERS: PCP Nurse Practitioner Family; Visit Provider Advanced Practice Midwife
DX: O43.113 Circumvallate placenta, third trimester (principal); O26.893 Other specified pregnancy related conditions, third trimester; Z3A.37 37 weeks gestation of pregnancy
CPT/HCPCS: 59025

== ENCOUNTER 2022-03-30 07:44 | Outpatient (CLI) | payer BC, MEDICAID, SELFPAY ==
[2022-03-30 14:56] VITALS: BP 118/77; PULSE 98; TEMP 36.5
[2022-03-30 15:06] VITALS: BP 118/77; PULSE 98
--- NOTE | 2022-03-30 15:47 | W.OBNST ---
Date of service: 03/30/22 Time of Service: 15:47 NST Evaluation Reason for NST Reasons for Nonstress Test: OTHER, SEE COMMENT Reason for NST Other: Placenta abnormalities Gestational Age Gestational Age in Weeks and Days: 39 Weeks and 0Days Test and Monitor Explained Test/Monitor Explained: Test Explained and Monitor Explained Vital Signs Blood Pressure: 118/77 Pulse: 98 Temperature: 97.7 F Urine Results Urine Protein: Negative Urine Ketones: Negative Urine Glucose: Negative Urine Blood: Negative NST Information Time on Monitor: 14:55 Date off Monitor: 03/30/22 Time off Monitor: 15:24 NST Interventions: PO Hydration NST Evaluation Patient States Movement: Present FHR Baseline: 130 Variability: Moderate 6-25 bpm Accelerations: 15x15 Decelerations: None NST Results: Reactive Note NST Note Note: Nicole requested a SVE 1 cm/post/-2/50%. Signs of labor reviewed. Nicole hopes for induction of labor at 40 weeks. RTO 04/02 for NST and exam. NST Reviewed and Verified by: Tonya Camacho
[2022-03-30 15:48] VITALS: PULSE 98; TEMP 36.5
[2022-03-30 15:53] VITALS: BP 118/77
== END 2022-03-30 15:35 | disposition home or self-care (01) ==
LOC: BCD 07:49 → OBS 14:51
PROVIDERS: PCP Nurse Practitioner Family; Visit Provider Advanced Practice Midwife
DX: O43.893 Other placental disorders, third trimester (principal); Z3A.39 39 weeks gestation of pregnancy
CPT/HCPCS: 59025

== ENCOUNTER 2022-04-02 07:56 | Outpatient (CLI) | payer BC, MEDICAID, SELFPAY ==
[2022-04-02 15:24] VITALS: BP 118/77; PULSE 83
[2022-04-02 15:36] VITALS: BP 118/77; PULSE 83; TEMP 36.8
--- NOTE | 2022-04-02 15:56 | W.OBNST ---
Date of service: 04/02/22 Time of Service: 15:40 NST Evaluation Reason for NST Reasons for Nonstress Test: OTHER, SEE COMMENT Reason for NST Other: Placental abnormalities Gestational Age Gestational Age in Weeks and Days: 39 Weeks and 3Days Test and Monitor Explained Test/Monitor Explained: Test Explained, Monitor Explained and Patient Verbalized Understanding Vital Signs Blood Pressure: 118/77 Pulse: 83 Temperature: 98.2 F Urine Results Urine Protein: Negative Urine Ketones: Negative Urine Glucose: Negative Urine Blood: Negative NST Information Date on Monitor: 04/02/22 Time on Monitor: 15: Date off Monitor: 04/02/22 Time off Monitor: 15:43 Total Time on Monitor: 21 NST Interventions: None Contraction Frequency: Occasional NST Evaluation Patient States Movement: Present FHR Baseline: 135 Variability: Moderate 6-25 bpm Accelerations: 15x15 Decelerations: None NST Results: Reactive Note NST Note Note: NST is reactive and reassuring. Patient desires induction of labor by 40 weeks gestation. VE done, fingertip, 30% -3 posterior soft. We discussed that cervical ripening would be needed and that we also need to look at census and acuity of patients to plan induction. She is aware that we will call her to make a plan tomorrow after we have review her case. DIANE NST Reviewed and Verified by: Tonya Scruggs
[2022-04-02 15:58] VITALS: BP 118/77; PULSE 83; TEMP 36.8
== END 2022-04-02 15:48 | disposition home or self-care (01) ==
LOC: BCD 07:58 → OBS 15:21
PROVIDERS: PCP Nurse Practitioner Family; Visit Provider Advanced Practice Midwife
DX: O43.113 Circumvallate placenta, third trimester (principal); Z3A.39 39 weeks gestation of pregnancy
CPT/HCPCS: 59025

== ENCOUNTER 2022-04-03 11:26 | Inpatient (IN) | payer BC, MEDICAID, SELFPAY ==
[2022-04-03] VITALS (10 sets, daily range): BP systolic 113–129; BP diastolic 72–83; PULSE 80–115; RESP 14–18; TEMP 36.6–37.7; O2SAT 98–100
[2022-04-03 13:46] LABS: HCT 32.4 % (36.0-46.0); HGB 10.1 g/dL (11.2-15.7); MCHC 31.2 % (32.0-36.0); MCV 83 fL (80-95); Platelet Count 125 10^3/uL (130-400); RBC 3.89 10^6/uL (3.93-5.22); RDW 15.1 % (11.7-14.6); RDW-SD 45.8 fL; WBC 15.25 10^3/uL (4.4-10.8)
--- NOTE | 2022-04-03 13:57 | HPE_ITS ---
Date of service: 04/03/22 Time of Service: 13:57 Assessment and Plan Assessment and plan (1) Spontaneous onset of labor: Status: Acute Assessment and plan: Admit to Center. Comfort measures. Covid- 19 test. Consider AROM if labor does not progress to active phase. Anticipate . OB-HPI Labor/Delivery History of Present Illness Reason for Visit: R/O Labor Chief Complaint: Uterine Contractions; Vaginal Bleeding (bloody show) , Associated Signs and Symptoms of Vaginal Bleeding: contractions. SHAR Calculator Estimated Delivery Date Method Current WG Current Estimate 04/06/22 Ultrasound #1 39w 4d Other Estimates 04/09/22 LMP (Certain) 39w 1d 04/05/22 Ultrasound #2 39w 5d History of Present Expected Delivery Route/Plan - CNM FOB/abdelrahman Cobb (2 adult children 23 & 20 yrs, first child together) BG Rubella Non-Immune, offer MMR GBS negative Specific Issues/Plan 1. AMA; desires cfDNA screen & level 2 scan/MFM consult @ [facility] [place] sched'ed for 11/17/21 1a. SMA/CF neg; cfDNA result is low prob x5, female fetus 1b. [facility] [place] US, nl scan, placenta is circumvallate with succenturiate lobe, check growth @ 32 wks 1c. Myoma left lateral noted 3.0X2.5X3.6 1d. US 02/16/22 - EFW 51%ile, KRYSTA 6.1- Per MD consult, start x2/wk NST, KRYSTA in 1 wk 2. Nicole & Alvarado both COVID+ 1/15 (@ 6 wks); advised low dose ASA start @ 12 wks 2a. Plan for 32 wk growth scan = 51st percentile, KRYSTA 6.1, see above 2b. Repeat KRYSTA on 02/23 is 9.5, will plan x1/wk NST's, repeat KRYSTA in 2 wks=14.6 3. Anemia at 6 wks, hgb 8.9, began iron supplement. 3a. At 12 wks, hgb 9.6; pt to take Floradix 1-2x/day and Blood Builder tab qd 3b. Hgb 10.3 11/24, vitamins w/iron daily. H&H @ 28 wks = 10.8/33.3. 4. Rh neg, RhoGam given @ 12 wks; RhoGam @ 28 wks received 5. Increased risk preeclampsia D/T AMA and > 10 years since previous - ASA recommended daily 81/162 mg alternating 6. History of LEEP procedure - pap done 09/28/21- WNL 7. Rubella Non-Immune, discuss w/pt, offer MMR 8. Considering TL or vasectomy, 30 wk appt w/MD for TL consent done 02/09/2022 KJ 9. Referral to [facility] due to symphysis pubis pain, missed appointment and reschedule- Did not reschedule 10. At 28 wks 1-hr GTT 187, 3-hr GTT=87-97-94-80 (nml) PFSH All Active Problems (Updated 04/03/22 @ 14:01 by Tonya Camacho CNM) Spontaneous onset of labor (Acute) Elderly multigravida in third trimester (Acute) 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(Acute) [facility] [place] US, circumvallate placenta with succenturiate lobe 11/17 Cramping complicating , antepartum (Acute) Rubella non-immune status, antepartum (Acute) Anemia affecting (Acute) Rh negative state in antepartum period (Acute) (Acute) Medical History (Updated 04/03/22 @ 14:01 by Tonya Camacho CNM) Anemia affecting fifth COVID-19 affecting in first trimester History of abnormal cervical Pap smear LEEP procedure Threatened in first trimester Tobacco dependence Surgical History Cervical Procedure LEEP in her late teens Family History (Updated 09/28/21 @ 15:05 by Tonya Camacho CNM) Grandmother Breast cancer maternal Thyroid disorder maternal Maternal Grandmother Thyroid disorder Breast cancer Mother Substance use disorder Depression Bipolar 1 disorder Father Substance use disorder ETOH Social History (Updated 09/28/21 @ 15:03 by Tonya Camacho CNM) Smoking/Tobacco Use Status: Former Tobacco Use Smoking risk assessment performed?: Yes Alcohol Intake: never Drug use: Never Substance use type: does not use Do you feel safe at home: Yes Do you feel safe in your relationship?: Yes History History 7 Para 4 Hx # Term Pregnancies 4 Multiple births 0 Hx # Pregnancies 0 Ectopic pregnancies 0 AB induced 0 Hx Number of Living Children 4 AB spontaneous 2 Past Pregnancies Del. Date GA/Weeks # Preg Succ Route Wgt Sex Labor Lgth Anesth esia Location Prov Complic 04/07/02 38 No vaginal 6 lb 12 oz Male 48 hrs [employer] delaney CN 12/14/04 37 No vaginal 6 lb 10 oz Female 20 hrs [place] [facility] 01/07/06 36 No vaginal 7 lb 12 oz Female 24 hrs [place] [facility] [facility] 01/10/10 37 No vaginal 7 lb 10 oz Male 20 hrs [facility] - [facility] Delivery Date: 04/07/02 Last Updated by: Vivi Alonzo uncomplicated delivery Ty Delivery Date: 12/14/04 Last Updated by: Tonya Camacho CNM uncomplicated delivery Shannan. Retained membranes x 10 days. febrile, uncertain if treated with antibiotics. Delivery Date: 01/07/06 Last Updated by: Vivi Alonzo uncomplicated delivery Shakira Delivery Date: 01/10/10 Last Updated by: Vivi Alonzo IOL for low fluid, attempted epidural but it was one-sided, Brady Meds Allergies and Home Medications Allergies Allergy/AdvReac Type Severity Reaction Status Date / Time No Known Drug Allergies Allergy Verified 03/02/22 15:25 Home Medications Medication Instructions Recorded Confirmed Type ferrous gluconate 225 mg (27 mg 225 mg PO DAILY 09/08/21 03/30/22 History iron) tablet prenat.vits,kylah,fhn-sqij-fugmt 1 tab PO DAILY 09/08/21 03/30/22 History blood builder 1 tab PO DAILY #90 tabs 09/29/21 03/30/22 Rx Exam Physical Exam Vital signs: Temp Pulse Resp 98.4 F 85 14 04/03/22 11:52 04/03/22 11:52 04/03/22 11:52 Detailed Labor and Delivery Exam Dilation: 2 Effacement (%): 100 station: -2 Cervix position: posterior Consistency: soft Cash Score: Cervical Points Exam 0 1 2 3 Dilation Closed 1-2cm 3-4 cm 5-6cm Effacement 0-30% 40-50% 60-70% 80% Consistency Firm Medium Soft Station -3 -2 -1,0 +1,+2 Position Posterior Mid Anterior Amniotic Membrane Status: Intact Contraction Frequency(min): every 7-8 minutes Contraction Duration(sec): 60 Contraction Intensity: Mild/Moderate Fetus A Heart Rate Baseline: 140 Monitor Accelerations: 15 X 15 Monitor Decelerations: None Variability: Moderate (6-25 BPM) Presentation: Vertex Categories: Category I Est. Weight: 8 lb Neck Exam Neck Exam: Normal Respiratory Exam Respiratory Exam: Normal Cardiovascular Exam Cardiovascular Exam: Normal Abdominal Exam Abdominal Exam: Normal Exam Exam: Normal Extremities Exam Extremities Exam: Normal Skin Exam Skin Exam: Normal Psychiatric Exam Psychiatric Exam: Normal Results Results Group Beta Strep: Negative Rubella Status: Nonimmune Risk Assessment Risk for Shoulder Dystocia Historical/Initial OB: NEGATIVE FOR: Pelvic Abnormality, Pre- BMI>30, Previous Shoulder Dystocia or Previous Macrosomia Delivery Plan @ 36wks: spont labor, Risk for Pre-Eclampsia Date Initiated/Initials: ASA recommended due to covid infection Yes, if one or more: NEGATIVE FOR: Hx Pre-E/Gest HTN, Chronic HTN, Multiple Gestation, Pre-gestational DM, Renal Disease, Systemic Lupus or APA Syndrome Yes, if 2 or more: POSITIVE FOR: Age>= 35 yrs and >10yr btwn pregnancies; NEGATIVE FOR: Nulliparity, BMI>30, ethinicty, Mother/Sister w/ Pre-E or Previous IUGR Risk for Post- Hemorrhage Initial: NEGATIVE FOR: Multiple Gestation, Previous PPH, Known Clotting Deficiency, Grand Multiparity or Anticoagulation At Risk?: No Counseled re: Active Management: Yes Risks Reviewed Risks Reviewed Upon Admission: Yes
[2022-04-03 14:27] LABS: Source Nasal/Nares
--- NOTE | 2022-04-03 15:26 | W.PM.OBNL1 ---
Date of service: 04/03/22 Time of Service: 15:27 Pelvic Exam Dilation: 5 Effacement (%): 75 station: -2 Cervix Position: posterior Consistency: soft Pooling: Negative Contractions Monitor Mode: External Contraction Frequency(min): every 5-7 min. Contraction Duration(sec): 50-60 Intensity: Moderate Fetus A Monitor: External (US) Heart Rate Baseline: 140 Presentation: Vertex Variability: Moderate (6-25 BPM) Categories: Category I FHR Rhythm: Regular Accelerations: 15 X 15 Decelerations: None Assessment and Plan Assessment and plan (1) Spontaneous onset of labor: Status: Acute Assessment and plan: Comfort measures and anticipate . Nicole requests to use the tub when it is available. Objective Abnormal lab results 04/03/22 Range/Units 13:30 WBC 15.25 H (4.4-10.8) 10^3/uL RBC 3.89 L (3.93-5.22) 10^6/uL Hgb 10.1 L (11.2-15.7) g/dL Hct 32.4 L (36.0-46.0) % MCH 26.0 L (27.0-33.0) pg MCHC 31.2 L (32.0-36.0) % RDW 15.1 H (11.7-14.6) % Plt Count 125 L (130-400) 10^3/uL Temp Pulse Resp BP 97.9 F 115 H 18 117/76 04/03/22 15:10 04/03/22 15:10 04/03/22 15:10 04/03/22 15:10 Laboratory Results WBC 15.25 10^3/uL (4.4-10.8) H 04/03/22 13:30 RBC 3.89 10^6/uL (3.93-5.22) L 04/03/22 13:30 Hgb 10.1 g/dL (11.2-15.7) L 04/03/22 13:30 Hct 32.4 % (36.0-46.0) L 04/03/22 13:30 MCV 83 fL (80-95) 04/03/22 13:30 MCH 26.0 pg (27.0-33.0) L 04/03/22 13:30 MCHC 31.2 % (32.0-36.0) L 04/03/22 13:30 RDW 15.1 % (11.7-14.6) H 04/03/22 13:30 Plt Count 125 10^3/uL (130-400) L 04/03/22 13:30 MPV fL (8.0-11.0) 04/03/22 13:30 COVID-19 Source Nasal/Nares 04/03/22 13:05 Patient ABO/Rh A Negative 04/03/22 13:30 Antibody Screen POSITIVE 04/03/22 13:30 Antibody Identification Anti-D 04/03/22 13:30 Antigen Identification Cancelled 04/03/22 13:30 Subjective Interval history since last seen: Nicole is experiencing more frequent contractions now. Results Hemoglobin/Hematocrit: Hgb 10.1 g/dL (11.2-15.7) L 04/03/22 13:30 Hct 32.4 % (36.0-46.0) L 04/03/22 13:30 Abnormal Lab Findings: Abnormal Labs 04/03/22 13:30 WBC 15.25 H RBC 3.89 L Hgb 10.1 L Hct 32.4 L MCH 26.0 L MCHC 31.2 L RDW 15.1 H Plt Count 125 L
[2022-04-03 18:15] LABS: COVID-19 PCR Negative (Negative)
--- NOTE | 2022-04-03 19:31 | W.PM.OBNL1 ---
Date of service: 04/03/22 Time of Service: 19:31 Pelvic Exam Dilation: 7 Effacement (%): 100 station: -1 Cervix Position: mid Consistency: soft Pooling: Positive Comments: AROM performed for large amount of clear fluid. Contractions Monitor Mode: External Contraction Frequency(min): every 3 minutes Contraction Duration(sec): 60 Intensity: Moderate Fetus A Monitor: Doppler Heart Rate Baseline: 130 Presentation: Vertex Variability: Moderate (6-25 BPM) Categories: Category I FHR Rhythm: Regular Decelerations: None Assessment and Plan Assessment and plan (1) Spontaneous onset of labor: Status: Acute Assessment and plan: Anticipate , Comfort measures. using the birthing ball for comfort. Objective Abnormal lab results 04/03/22 Range/Units 13:30 WBC 15.25 H (4.4-10.8) 10^3/uL RBC 3.89 L (3.93-5.22) 10^6/uL Hgb 10.1 L (11.2-15.7) g/dL Hct 32.4 L (36.0-46.0) % MCH 26.0 L (27.0-33.0) pg MCHC 31.2 L (32.0-36.0) % RDW 15.1 H (11.7-14.6) % Plt Count 125 L (130-400) 10^3/uL Temp Pulse Resp BP 98.2 F 100 H 18 122/83 04/03/22 18:58 04/03/22 18:58 04/03/22 18:58 04/03/22 18:58 Laboratory Results WBC 15.25 10^3/uL (4.4-10.8) H 04/03/22 13:30 RBC 3.89 10^6/uL (3.93-5.22) L 04/03/22 13:30 Hgb 10.1 g/dL (11.2-15.7) L 04/03/22 13:30 Hct 32.4 % (36.0-46.0) L 04/03/22 13:30 MCV 83 fL (80-95) 04/03/22 13:30 MCH 26.0 pg (27.0-33.0) L 04/03/22 13:30 MCHC 31.2 % (32.0-36.0) L 04/03/22 13:30 RDW 15.1 % (11.7-14.6) H 04/03/22 13:30 Plt Count 125 10^3/uL (130-400) L 04/03/22 13:30 MPV fL (8.0-11.0) 04/03/22 13:30 COVID-19 Source Nasal/Nares 04/03/22 13:05 SARS-CoV-2 (PCR) Negative (Negative) 04/03/22 13:05 Patient ABO/Rh A Negative 04/03/22 13:30 Antibody Screen POSITIVE 04/03/22 13:30 Antibody Identification Anti-D 04/03/22 13:30 Antigen Identification Cancelled 04/03/22 13:30 Subjective Interval history since last seen: Nicole's contractions became stronger and more regular. Results Hemoglobin/Hematocrit: Hgb 10.1 g/dL (11.2-15.7) L 04/03/22 13:30 Hct 32.4 % (36.0-46.0) L 04/03/22 13:30 Abnormal Lab Findings: Abnormal Labs 04/03/22 13:30 WBC 15.25 H RBC 3.89 L Hgb 10.1 L Hct 32.4 L MCH 26.0 L MCHC 31.2 L RDW 15.1 H Plt Count 125 L
[2022-04-03] MEDS: Calcium Carbonate *TUMS* 500 MG CHEW 1000 MG PO (19:37)
[2022-04-03] MEDS: Oxytocin 10 UNITS/ML VIAL IM (21:10)
--- NOTE | 2022-04-03 21:14 | PLAC_PTH ---
PATIENT: Nicole Arita LOC: OBS U#:[id number] AGE/SX: 36/F ROOM: OBS.304 RE04/03/[address]: Tonya Camacho : 1985 BED: A DIS: 04/05/2022 SPEC #: [id number] RECD: 04/04/22 11:57 STATUS: KECIA REQ #: [id number] BILLY: 04/03/22 21:[address]: Tonya Camacho DEPT: Surgical Specimen RECD BY: Ramona Soares ENTERED: 04/04/22 11:59 SP TYPE: PLAC OTHR DR: ARPIT DE JESUS, YARED Tissues: 1 - PLACENTA (3RD TRIMESTER) Procedures: GROSS AND MICRO LEVEL 5 Comments: [id number]
[2022-04-03] MEDS: miSOPROStol 200 MCG TAB 400 MCG SL (21:18)
--- NOTE | 2022-04-03 22:20 | OBVDS_ITS ---
Date of service: 04/03/22 Time of Service: 22:20 OB Labor/ Delivery Information Baby A Delivery Delivery Method: Spontaneaous Presentation: Vertex Cephalic Position: Vertex Vertex Position: Left Occipital Anterior Amniotic Fluid: Clear Estimated Blood Loss: 450 Delivery Outcome: Liveborn Complications: A tight nuchal cord was encountered at delivery. The cord broke upon delivery approximately 2 inches from the baby's abdomen and the cord was clamped immediately at the baby's abdomen. x The baby had a weak cry initially and was placed on mother's abdomen and dried and stimulated. Resuscitation was required due to poor tone and respiratory effort at . The baby responded to stimulation and PPE briefly. Dr. Almanza was paged to the delivery room. Note: FHTs 135 by doppler during first stage of labor. FHTs 130s in second stage wth decelerations noted with pushing at the end of the second stage. Nicole pushed well. Second stage huddle was done. Spontaneous delivery of infant delivered in SARI position. Baby was placed on mother's abdomen and dried and stimulated. Poor respiratory effort. Cord was clamped as above. The placenta delivered spontaneously and appears to by intact with a three vessel cord. A ccunvallate placenta was noted. There was no evidence of a succincuriate lobe. There were trailing membranes which did not contain vessels. Pitocin 10 units was administered before delivery of the placenta. The perineum was inspected and was intact with a right labial abrasion. Nicole had bright bleeding and cytotec 400 mcg was administered sublingual. Dr. Almanza assessed the baby and then she was transferred to skin to skin with Nicole. The baby did breastfeed. I called and notified Dr. Parsons of [facility] of a succincuriate lobe of placenta as identified on US at [facility] [place]. She recommended monitoring the bleeding and performing an US in the morning. Nicole had an additional 195 cc estimated blood loss by weight. She was straight catheterized for 50 cc concentrated urine and IV was started at 2215 for pitocin administration per protocol. After delivery, Mother and baby and father of the baby were stable and bonding well in the delivery room. Will plan to continue to monitor blood loss and consult with Dr. Parsons if bleeding persists. Providers Nurse Finishing Range Supervisor: Tonya Camacho Jewish History Professor: Elda Almanza Nurse: Paulette Quintana Labor/Delivery Information Number of Babies in Womb: 1 Steroids Given: None Reason Steroids Not Administered: N/A Group Beta Strep: Negative Antibiotics Administered: No Rubella Status: Nonimmune Blood Type: A- Stages of Labor Onset of Labor Date: 04/03/22 Onset of Labor Time: 03:00 Complete Dilatation Date: 04/03/22 Complete Dilatation Time: 20:09 Labor - Stage 1 Duration: 0 minutes ROM Baby A: 04/03/22 ROM Baby A: 18:50 ROM Total Time- Baby A: [id number] Infant Delivery Date-Baby A: 04/03/22 Delivery Time-Baby A: 21:08 Labor Stage 2 Duration: 59 minutes Placenta Delivery Date-Baby A: 04/03/22 Placenta Delivery Time-Baby A: 21:14 Labor-Stage 3 Duration: 6 minutes Total Length of Labor-Baby A: 18 hours and 8 minutes Placenta Status: Delivered Baby A Gender: Female Gestational Status: Term (39-41.6 wks) Gestational Age in Weeks/Days: 39 Weeks and 4 Days Score-1 Minute Interval(Baby A) Heart Rate-1 minute: 100 BPM or Greater Respiratory Effort- 1 minute: Slow Respiration/Weak Cry Muscle Tone-1 minute: Limp Reflex Response-1 minute: No Response Color-1 minute: Pallor or Cyanosis Total Score-1 minute: 3 Score-5 Minute Interval(Baby A) Heart Rate- 5 minute: 100 BPM or Greater Respiratory Effort-5 minute: Slow Respiration/Weak Cry Muscle Tone-5 minute: Minimal Flexion/Extension Reflex Response-5 minute: Minimal Response Color-5 minute: Bluish Hands or Feet Total Score- 5 minute: 6
[2022-04-03] MEDS: Ibuprofen 600 MG TAB PO (22:36)
[2022-04-03] MEDS: Acetaminophen 325 MG TAB 650 MG PO (22:36)
[2022-04-03] MEDS: Methylergonovine 0.2 MG/ML VIAL IM (22:46)
[2022-04-04] VITALS (8 sets, daily range): BP systolic 104–142; BP diastolic 68–81; PULSE 82–103; RESP 16–20; TEMP 36.4–37.7; O2SAT 97–100
--- NOTE | 2022-04-04 | DI.US_ITS ---
Exam(s) US PELVIS EXAM: US PELVIS CLINICAL HISTORY: rule out retained plaacental lobe.. TECHNIQUE: Transabdominal pelvic ultrasound was performed using standard protocol. COMPARISON: US US OB KRYSTA WEIGHT from 02/16/2022 FINDINGS: Limited transabdominal pelvic ultrasound was performed. The kindergarten instructional assistant was present at the examinat ion. The patient is day 1. UTERUS: Position: Anteverted. Size: 20.2 long by 11.8 AP by 12.4 transverse cm Endometrium: The endometrium is thickened measuring up to 4 cm. There is a small amount of fluid wit hin the endometrial canal. No abnormal blood flow is seen to the endometrium. Myometrium: There is a 3.5 x 2.9 x 2.2 cm fundal uterine fibroid. Cervix: Unremarkable. OVARIES: The ovaries were not imaged on this examination. This examination was focused on the uterus as requested by the ordering physician. CUL-DE-SAC: Free fluid: None. Other: None. IMPRESSION: 1. day 1 limited transabdominal uterine ultrasound. 2. The endometrial stripe is thickened in the uterus is enlarged likely secondary to the s floyd. 3. No abnormal blood flow is seen within the endometrium. DATA REPOSITORY:
--- NOTE | 2022-04-04 00:14 | OBCE_ITS ---
Date of service: 04/04/22 Time of Service: 00:14 Assessment and Plan Assessment and plan (1) Normal spontaneous vaginal delivery: Status: Acute Assessment and plan: Patient is status postnormal spontaneous vaginal delivery with increased vaginal bleeding. She has received oxytocin medication and at this point her uterus is firm. (2) Circumvallate placenta: Status: Acute Assessment and plan: Patient did have a placental abnormality noted on ultrasound with a succenturiate lobe. Postdelivery, she is having a slight amount of increased vaginal bleeding. If she continues to have bleeding, the next step would be for surgical exploration by dilation and curettage under anesthesia. Patient is aware. Anesthesia is aware of the patient's current situation. All questions were answered. History of Present Illness History of Present Illness Chief Complaint: Post bleeding Narrative: I was called regarding the patient in the immediate period. She had delivery of a viable male weighing 4100 g. She had spontaneously delivered her placenta with a partial cord avulsion. Patient was previously known to have a circumvallate placenta with suspected succenturiate lobe. On examination of the placenta postdelivery, there was no area of avulsion of a segment of placenta, and no vessels in the trailing membranes. After approximately 400 cc of bleeding at , she had an additional 350 cc of qualitative blood loss postdelivery for which she received significant Oxytet X including Pitocin, oral misoprostol, TXA. Upon my presentation patient was feeling crampy, somewhat poorly with chills, most likely related to her medications. Uterus is firm, 2 cm above the umbilicus, with a palpable prominent uterine fibroid at the fundus. There is no increase in vaginal bleeding at this point. We had a conversation regarding the potential need for exploration which would be surgical under anesthesia to evaluate the uterine contents and be sure that there is no remaining placental tissue noted. She is certainly reluctant and hesitant to have anesthesia and further procedures. At this point, review of vital signs are stable and she is having no further ongoing bleeding. Consults Consult date: 04/04/22 Requesting physician: Tonya Camacho Review of Systems Narrative: Tired, chills, some uterine crampiness Constitutional Constitutional: Reports as per HPI, Reports chills, Denies headache(s), Reports malaise and Denies weakness ENT Ears, Nose, Mouth, and Throat: Denies headache(s) Cardiovascular Cardiovascular: Reports as per HPI, Denies chest pain, Denies irregular heart rhythm and Denies lightheadedness Respiratory Respiratory: Reports system reviewed and no additional complaints, except as documented Genitourinary Genitourinary: Reports system reviewed and no additional complaints, except as documented and Reports as per HPI Neurologic Neurologic: Denies headache(s) and Denies weakness PFSH All Active Problems (Updated 04/04/22 @ 00:21 by Donna Parsons DO) Normal spontaneous vaginal delivery (Acute) Spontaneous onset of labor (Acute) Elderly multigravida in third trimester (Acute) 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(Acute) [facility], circumvallate placenta with succenturiate lobe 11/17 Cramping complicating , antepartum (Acute) Rubella non-immune status, antepartum (Acute) Anemia affecting (Acute) Rh negative state in antepartum period (Acute) (Acute) Medical History (Updated 04/04/22 @ 00:21 by Donna Parsons DO) Anemia affecting fifth COVID-19 affecting in first trimester History of abnormal cervical Pap smear LEEP procedure Threatened in first trimester Tobacco dependence Surgical History Cervical Procedure LEEP in her late teens Family History (Updated 09/28/21 @ 15:05 by Tonya Camacho CNM) Grandmother Breast cancer maternal Thyroid disorder maternal Maternal Grandmother Thyroid disorder Breast cancer Mother Substance use disorder Depression Bipolar 1 disorder Father Substance use disorder ETOH Social History (Updated 09/28/21 @ 15:03 by Tonya Camacho CNM) Smoking/Tobacco Use Status: Former Tobacco Use Smoking risk assessment performed?: Yes Alcohol Intake: never Drug use: Never Substance use type: does not use Do you feel safe at home: Yes Do you feel safe in your relationship?: Yes History History 7 Para 4 Hx # Term Pregnancies 4 Multiple births 0 Hx # Pregnancies 0 Ectopic pregnancies 0 AB induced 0 Hx Number of Living Children 4 AB spontaneous 2 Past Pregnancies Del. 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 Retained membranes x 10 days. febrile, uncertain if treated with antibiotics. Delivery Date: 01/07/06 Last Updated by: Vivi Alonzo uncomplicated delivery Shakira Delivery Date: 01/10/10 Last Updated by: Vivi Alonzo IOL for low fluid, attempted epidural but it was one-sided, Brady Exam Const General: cooperative and no acute distress Nutritional Appearance: average body habitus Eyes General: appearance normal, both eyes and all related structures Resp Effort & Inspection: normal respiratory effort Cardio Rate: tachycardic (Mild, approximately 100) GI Palpation: soft, not firm and no guarding Other: Uterus firm, 3 cm above the umbilicus with a prominent fundal uterine fibroid. Mild tenderness with deep palpation. No active uterine bleeding Skin General skin exam: no rashes or lesions noted Extrem General: no clubbing, cyanosis or edema Results Last Vital Signs Temp 98.2 F 04/03/22 18:58 Pulse 137 H 04/03/22 22:01 Resp 18 04/03/22 18:58 BP 192/136 H 04/03/22 22:01 Labs Result diagrams: 04/03/22 13:30 Labs: Laboratory Results - last 24 hr 04/03/22 04/03/22 04/03/22 13:05 13:30 13:30 WBC 15.25 H RBC 3.89 L Hgb 10.1 L Hct 32.4 L MCV 83 MCH 26.0 L MCHC 31.2 L RDW 15.1 H Plt Count 125 L MPV COVID-19 Source Nasal/Nares SARS-CoV-2 (PCR) Negative Patient ABO/Rh A Negative Antibody Screen POSITIVE Antibody Identification Anti-D Antigen Identification Cancelled
--- NOTE | 2022-04-04 00:46 | OBPPV_ITS ---
Date of service: 04/04/22 Time of Service: 00:46 Assessment and Plan Assessment and plan (1) hemorrhage, delivered: Status: Acute Assessment and plan: Continue to assess patient's status. Nicole got up to the bathroom and tolerated ambulation well. bleeding was light. Her fundus was 1 FB above umbilicus. As her bleeding was light, will plan to continue to assess and notify Dr Parsons if her bleeding increases. Subjective Subjective Interval history: Nicole continued to have episodes of small amounts of bright bleeding. An IV was started with pitocin 30 mu and infused per protocol. She had a total QBL of 800cc and methergine 0.2 mg Im and TXA 1000 mg was administered with good eff ect. Dr Parsons was notified by telephone when the TXA was administered and she came in to assess Nicole. She discussed the D and C procedure with Nicole. Nicole expressed that she feels very apprehensive about anesthesia and the procedure. As her bleeding was light, a plan was made to continue observation and administer pitocin x 500 cc bag. Nicole complained of nausea but when zofran was ordered, she reported that she was no longer feeling nauseated and the medication was held. B.P. 120s/70-80s with pulse 91 on portable vital signs monitor. Patient's Mood: tired Exam Physical Exam Vital signs: Temp Pulse Resp BP 98.2 F 137 H 18 192/136 H 04/03/22 18:58 04/03/22 22:01 04/03/22 18:58 04/03/22 22:01 Respiratory Exam Respiratory Exam: Normal Cardiovascular Exam Cardiovascular Exam: Normal Fundal Exam Comment: fundus firm and up 1 FB from umbilicus. fibroid palpable. Rectal Exam Comments: small cluster hemorrhoids. Extremities Exam Extremity Exam: Normal Psychiatric Exam Psychiatric Exam: Normal Results Hemoglobin/Hematocrit: Hgb 10.1 g/dL (11.2-15.7) L 04/03/22 13:30 Hct 32.4 % (36.0-46.0) L 04/03/22 13:30 Abnormal Lab Findings: Abnormal Labs 04/03/22 13:30 WBC 15.25 H RBC 3.89 L Hgb 10.1 L Hct 32.4 L MCH 26.0 L MCHC 31.2 L RDW 15.1 H Plt Count 125 L
[2022-04-04] MEDS: Acetaminophen 325 MG TAB 650 MG PO ×3 (04:31→21:23)
[2022-04-04] MEDS: Ibuprofen 600 MG TAB PO ×3 (04:31→21:24)
--- NOTE | 2022-04-04 09:50 | POCSPONT_PTH ---
PATIENT: Nicole Arita LOC: OBS U#:[id number] AGE/SX: 36/F ROOM: OBS.304 RE04/03/[address]: Tonya Camacho : 1985 BED: A DIS: 04/05/2022 SPEC #: [id number] RECD: 04/04/22 12:20 STATUS: KECIA REQ #: [id number] BILLY: 04/04/22 09:[address]: Tonya Camacho DEPT: Surgical Specimen RECD BY: Ramona Soares ENTERED: 04/04/22 12:21 SP TYPE: POCSPONT GERMAN DR: ARPIT DE JESUS NP Tissues: 1 - ,SPONTANEOUS Procedures: GROSS AND MICRO LEVEL 4 Comments: [id number]
--- NOTE | 2022-04-04 13:08 | OBPPV_ITS ---
Date of service: 04/04/22 Time of Service: 13:08 Assessment and Plan Assessment and plan (1) hemorrhage, delivered: Status: Acute Assessment and plan: Bedside ultrasound done this morning to assess for retained placental lobe Non visualized, results nml Pt passed a small disc shaped piece of tissue that may have been placental Specimen sent to lab for histologic evaluation Fundus firm, lochia minimal today Maternal pulse ranging 90-100's, denies dizziness or SOB Will check CBC this evening (2) Normal spontaneous vaginal delivery: Status: Acute Assessment and plan: A: PPD#1; s/p PPH, likely anemia Recovering well, off to a good start Pt satisfied with experience though she states it was hard P: Routine PP care and pain medications prn support as needed Encourage rest & hydration RhoGam and MMR injections prior to discharge CBC to be drawn this evening Pt planning IUD for BCM @ 8 wks Expect discharge tomorrow Subjective Subjective Patient comments: No complaints, Pain well controlled, Tolerating diet and Flatus present baby status: Doing well, Nursing well, Rooming in and Strong Bonding Observed [place] feeding status: Exclusively breast feeding Narrative: Pt wants to have her baby in her bed with her, advised strongly that this is permissible only if she is awake and able to attend to baby's needs, reinforced that baby is to be placed in pram when pt wants to rest or if she feels sleepy /tired. Exam Physical Exam Vital signs: Temp Pulse Resp BP Pulse Ox 97.5 F L 103 H 16 112/72 98 04/04/22 11:25 04/04/22 11:25 04/04/22 11:25 04/04/22 11:25 04/04/22 11:25 Vital Signs Reviewed: Yes Constitutional Constitutional: no acute distress and average body habitus HEENT Exam HEENT Exam: Normal Neck Exam Neck Exam: Normal Breast Exam Bilateral: Breast Exam: Normal and Soft Nipple Exam: Normal and Uninjured Respiratory Exam Respiratory Exam: Normal Cardiovascular Exam Cardiovascular Exam: Normal Abdominal Exam Abdomen: Other (soft, nontender) Fundal Exam Fundus: Firm and Other (At or above umbilicus) Comment: bleeding is minimal today Rectal Exam Rectal Exam: Normal Exam Patient deferred: external exam Extremities Exam Extremity Exam: Normal, Full ROM and Warm to Touch Back/Spine/Pelvis Exam Back Exam: Normal Skin Exam Skin Exam: Normal Neurological Exam Neurological Exam: Normal Psychiatric Exam Psychiatric Exam: Normal
[2022-04-04 20:53] LABS: HCT 24.6 % (36.0-46.0); MCH 25.9 pg (27.0-33.0); MCHC 31.3 % (32.0-36.0); MCV 83 fL (80-95); Platelet Count 122 10^3/uL (130-400); RBC 2.97 10^6/uL (3.93-5.22); RDW 15.1 % (11.7-14.6); RDW-SD 45.7 fL; WBC 22.66 10^3/uL (4.4-10.8)
[2022-04-04 21:05] LABS: HGB 7.7 g/dL (11.2-15.7)
[2022-04-05 08:11] LABS: HCT 23.7 % (36.0-46.0); HGB 7.7 g/dL (11.2-15.7); MCH 26.4 pg (27.0-33.0); MCHC 32.5 % (32.0-36.0); MCV 81 fL (80-95); MPV 12.9 fL (8.0-11.0); Platelet Count 144 10^3/uL (130-400); RBC 2.92 10^6/uL (3.93-5.22); RDW 15.2 % (11.7-14.6); WBC 22.45 10^3/uL (4.4-10.8)
[2022-04-05 08:30] VITALS: BP 125/85; PULSE 95; RESP 14; TEMP 36.7
[2022-04-05] MEDS: Acetaminophen 325 MG TAB 650 MG PO (08:37)
[2022-04-05] MEDS: Ibuprofen 600 MG TAB PO (09:03)
[2022-04-05] MEDS: IRON SUCROSE COMPLEX 200 MG in Normal Saline 100 ML 400 MG IVPB (09:27)
--- NOTE | 2022-04-05 10:08 | W.PM.OBPNV1 ---
Date of service: 04/05/22 Time of Service: 10:08 Assessment and Plan Assessment and plan (1) Normal spontaneous vaginal delivery: Status: Acute Assessment and plan: A: PPD#2; anemia P: RhoGam and MMR injections prior to discharge Iron sucrose 200 mg IV today Pt planning IUD for BCM @ 8 wks Discharge to home; resume PNV's and daily iron tablet F/up @ 2 & 6 wks, plan hgb recheck at 2 wk appt Written instructions reviewed and given to pt Subjective Subjective Patient comments: No complaints, Pain well controlled, Tolerating diet and Bowel Movement [place] baby status: Doing well, Nursing well and Strong Bonding Observed feeding status: Exclusively breast feeding Exam Physical Exam Vital signs: Temp Pulse Resp BP Pulse Ox 97.7 F 90 16 142/77 H 98 04/04/22 19:35 04/04/22 19:35 04/04/22 19:35 04/04/22 19:35 04/04/22 11:25 Vital Signs Reviewed: Yes Narrative: BP taken this morning was normotensive @ 125/85 Constitutional Constitutional: no acute distress and average body habitus HEENT Exam HEENT Exam: Normal Neck Exam Neck Exam: Normal Respiratory Exam Respiratory Exam: Normal Cardiovascular Exam Cardiovascular Exam: Normal Abdominal Exam Abdomen: Other (soft, nontender) Fundal Exam Fundus: Firm and Other (At or above umbilicus) Rectal Exam Rectal Exam: Normal Exam Patient deferred: external exam Extremities Exam Extremity Exam: Normal, Full ROM and Warm to Touch Back/Spine/Pelvis Exam Back Exam: Normal Skin Exam Skin Exam: Normal Neurological Exam Neurological Exam: Normal Psychiatric Exam Psychiatric Exam: Normal Results Hemoglobin/Hematocrit: Hgb Cancelled 04/05/22 Unknown Hct Cancelled 04/05/22 Unknown Abnormal Lab Findings: Abnormal Labs 04/03/22 04/04/22 04/05/22 13:30 20:20 07:23 WBC 15.25 H 22.66 H 22.45 H RBC 3.89 L 2.97 L 2.92 L Hgb 10.1 L 7.7 L D 7.7 L Hct 32.4 L 24.6 L 23.7 L MCH 26.0 L 25.9 L 26.4 L MCHC 31.2 L 31.3 L RDW 15.1 H 15.1 H 15.2 H Plt Count 125 L 122 L MPV 12.9 H
--- NOTE | 2022-04-05 10:16 | DSE_ITS ---
Date of service: 04/05/22 Time of Service: 10:16 DS: Diagnosis Discharge Diagnosis (1) Normal spontaneous vaginal delivery: Status: Acute Discharge Plan Disposition Patient Disposition: HOME Condition: Good Discharge Details Reason For Visit: R/O Labor Admit Date/Time: 04/03/22 12:19 Admit Provider: Tonya Camacho Attending Provider: Tonya Camacho Primary Care Provider: ARPIT DE JESUS Hospital Course Hospital Course: , hemorrhage and anemia, discharge on 2nd day Home Meds and New Rx's Prescriptions: No Action prenat.vits,kylah,hth-[id number] Tablet 1 tab PO DAILY ferrous gluconate 225 mg (27 mg iron) tablet 225 mg PO DAILY blood builder 1 tab PO DAILY Qty: 90 0RF Discharge Instructions Additional Instructions: Please keep your 2 weeks and 6 week appointments with the midwives, and plan on an IUD insertion at 8 wks . We will check your hemoglobin at your 2 week appointment and may schedule you for weekly iron infusions if needed. Please take your vitamins and iron tablets daily. Call for any questions or concerns. Stand Alone Forms: Instructions, Post Vaginal Deliver Activity:: Activity as Tolerated Equipment/Supplies:: No Equipment Needed Diet:: Normal Diet Discharge Orders Discharge Orders: Discharge Order (Routine); Ordered 04/05/22 Ordered By: Vivi Alonzo OB:DS Summary Summary Vaginal Delivery Method: Spontaneaous Episiotomy Description: None Laceration Description: None Laceration Extension: N/A Contraception Discussed Contraception Discussed: Yes Contraceptive Plan: IUD, [place] Gender-Baby A: Female weight: 9 lb 3.622 oz Status at Discharge Functional status at discharge: independent ambulation Overall status at discharge: patient is progressing back to baseline Mental Status: mental status grossly normal Speech and Movement: speech and movement normal and speech clear Mood: congruent mood Affect: normal affect Exam Physical Exam Vital signs: Temp Pulse Resp BP Pulse Ox 97.7 F 90 16 142/77 H 98 04/04/22 19:35 04/04/22 19:35 04/04/22 19:35 04/04/22 19:35 04/04/22 11:25 Constitutional Constitutional: no acute distress and average body habitus HEENT Exam HEENT Exam: Normal Neck Exam Neck Exam: Normal Respiratory Exam Respiratory Exam: Normal Cardiovascular Exam Cardiovascular Exam: Normal Abdominal Exam Abdomen: Other (soft, nontender) Fundal Exam Fundus: Firm and Other (At or above umbilicus) Rectal Exam Rectal Exam: Normal Exam Patient deferred: external exam Extremities Exam Extremity Exam: Normal, Full ROM and Warm to Touch Back/Spine/Pelvis Exam Back Exam: Normal Skin Exam Skin Exam: Normal Neurological Exam Neurological Exam: Normal Psychiatric Exam Psychiatric Exam: Normal PFSH All Active Problems (Updated 04/05/22 @ 10:07 by Vivi Alonzo) Anemia (Chronic) Normal spontaneous vaginal delivery (Acute) Rubella non-immune status, antepartum (Acute) Rh negative state in antepartum period (Acute) Medical History (Updated 04/05/22 @ 10:07 by Vivi Alonzo) Anemia affecting fifth Anemia affecting 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[facility], circumvallate placenta with succenturiate lobe 11/17 COVID-19 affecting in first trimester Cramping complicating , antepartum Elderly multigravida in third trimester History of abnormal cervical Pap smear LEEP procedure Pain in symphysis pubis during hemorrhage, delivered Spontaneous onset of labor Threatened in first trimester Tobacco dependence Surgical History Cervical Procedure LEEP in her late teens Family History (Updated 09/28/21 @ 15:05 by Tonya Camacho CNM) Grandmother Breast cancer maternal Thyroid disorder maternal Maternal Grandmother Thyroid disorder Breast cancer Mother Substance use disorder Depression Bipolar 1 disorder Father Substance use disorder ETOH Social History (Updated 09/28/21 @ 15:03 by Tonya Camacho CNM) Smoking/Tobacco Use Status: Former Tobacco Use Smoking risk assessment performed?: Yes Alcohol Intake: never Drug use: Never Substance use type: does not use Do you feel safe at home: Yes Do you feel safe in your relationship?: Yes History History 7 Para 4 Hx # Term Pregnancies 4 Multiple births 0 Hx # Pregnancies 0 Ectopic pregnancies 0 AB induced 0 Hx Number of Living Children 4 AB spontaneous 2 Past Pregnancies Del. Date GA/Weeks # Preg Succ Route Wgt Sex Labor Lgth Anesth esia Location Prov Complic 04/07/02 38 No vaginal 6 lb 12 oz Male 48 hrs [place] [facility] del[facility] [place] 12/14/04 39 No vaginal 6 lb 10 oz Female 20 hrs [facility] 01/07/06 38 No vaginal 7 lb 12 oz Female 24 hrs [facility] 01/10/10 37 No vaginal 7 lb 10 oz Male 20 hrs [facility] - [facility] Delivery Date: 04/07/02 Last Updated by: Vivi Alonzo uncomplicated delivery Ty Delivery Date: 12/14/04 Last Updated by: Tonya Camacho CNM uncomplicated delivery Shannan. Retained membranes x 10 days. febrile, uncertain if treated with antibiotics. Delivery Date: 01/07/06 Last Updated by: Vivi Alonzo uncomplicated delivery Shakira Delivery Date: 01/10/10 Last Updated by: Vivi Alonzo IOL for low fluid, attempted epidural but it was one-sided, Brady DS: Data Vitals/I&O Vitals and I&O: Vital Signs Temperature 97.7 F 04/04/22 19:35 Pulse 90 04/04/22 19:35 Pulse Rhythm Regular 04/04/22 19:25 Respiratory Rate 16 04/04/22 19:35 Respiratory Depth Normal 04/03/22 15:10 Blood Pressure 142/77 H 04/04/22 19:35 Blood Pressure Mean 98 04/04/22 19:35 Pulse Oximetry 98 04/04/22 11:25 Pain Level 4 04/05/22 09:03 Comment 04/04/22 19:35 Intake & Output 04/04/22 04/04/22 04/05/22 11:59 23:59 11:59 Intake Total 60 / 60 Output Total 700 / 700 Balance -640 / -640 Intake: IV 60 / 60 Output: Urine 650 / 650 Blood 50 / 50 Data Completed and Pending Labs on day of discharge: Labs from last 24 hours 04/05/22 04/05/22 04/05/22 Unknown 09:03 07:23 WBC Cancelled 22.45 H RBC Cancelled 2.92 L Hgb Cancelled 7.7 L Hct Cancelled 23.7 L MCV Cancelled 81 MCH Cancelled 26.4 L MCHC Cancelled 32.5 RDW Cancelled 15.2 H Plt Count Cancelled 144 MPV Cancelled 12.9 H Patient ABO/Rh Antibody Screen Antibody Identification Antigen Identification Screen Pending Rhogam Unit Number Unit Expiration Date Product Lot # 04/04/22 04/03/22 20:20 13:30 WBC 22.66 H RBC 2.97 L Hgb 7.7 L D Hct 24.6 L MCV 83 MCH 25.9 L MCHC 31.3 L RDW 15.1 H Plt Count 122 L MPV Patient ABO/Rh A Negative Antibody Screen POSITIVE Antibody Identification Anti-D Antigen Identification Cancelled Screen Rhogam Unit Number [id number] Unit Expiration Date 10/19/23 Product Lot # [id number]
[2022-04-05] MEDS: Measles, Mumps, & Rubella Vaccine 0.5 ML VIAL SC (10:35)
== END 2022-04-05 11:15 | disposition home or self-care (01) | DRG 806 ==
LOC: OBS 11:32
PROVIDERS: Advanced Practice Midwife; Admitting Provider Advanced Practice Midwife; PCP Nurse Practitioner Family; Visit Provider Advanced Practice Midwife
DX: O43.113 Circumvallate placenta, third trimester (principal); Z37.0 Single live birth; O72.1 Other immediate postpartum hemorrhage; Z3A.39 39 weeks gestation of pregnancy; O99.02 Anemia complicating childbirth; D64.9 Anemia, unspecified; O36.0930 Maternal care for other rhesus isoimmunization, third trimester, not applicable or unspecified; O69.1XX0 Labor and delivery complicated by cord around neck, with compression, not applicable or unspecified; O34.13 Maternal care for benign tumor of corpus uteri, third trimester; D25.9 Leiomyoma of uterus, unspecified
CPT/HCPCS: 36415; 85027; 85461; 86850; 86900; 86901; 87635; 88305; 90384; 76856; 86870; 86902; 88307; G0378; J1756; J2210; J2590; J2790

== ENCOUNTER 2022-04-20 14:57 | Outpatient (REF) | payer BC, MEDICAID, SELFPAY | END 2022-04-20 14:58 | disposition home or self-care (01) | LOC: LBN 14:57 | PROVIDERS: PCP Nurse Practitioner Family; Visit Provider Advanced Practice Midwife | DX: N89.8 Other specified noninflammatory disorders of vagina (principal) | CPT/HCPCS: 87480; 87510; 87660 ==

== ENCOUNTER 2023-04-19 20:38 | Emergency (ER) | payer BC, MEDICAID, SELFPAY ==
[2023-04-19 20:42] VITALS: BP 134/85; PULSE 101; RESP 20; TEMP 36.8; O2SAT 99
--- NOTE | 2023-04-19 22:03 | ED.GENADUL_ITS ---
Discharge Plan Disposition Patient Disposition: Home Condition: Stable Discharge Details Clinical Impression: Abdominal pain Primary Care Provider: [facility] ED Provider: Rosibel aMrtinez Home Meds and New Rx's Prescriptions: Continued prenat.vits,kylah,ear-mmai-prgfg Tablet 1 tab PO DAILY Patient Comments: no longer using 04/19/23 Mirena 20 mcg/24 hours (8 yrs) 52 mg intrauterine device 1 device intrauterine ONCE Rx Instructions: as a single dose selenium sulfide 2.5 % lotion 1 applic topical DAILY diclofenac sodium 1 % gel 2 g topical TID PRN Patient Comments: no longer using 04/19/23 Rx Instructions: apply to single elbow, wrist or hand; for hand includes palm/fingers/back of hand ibuprofen 200 mg tablet 200 mg PO Q6H PRN tretinoin 0.025 % cream 1 applic topical QHS Patient Comments: no longer using 04/19/23 Discharge Instructions Instructions: Abdominal Pain (ED) Additional Instructions: Clear liquids, advance as tolerated. Push fluids to stay well-hydrated You will be scheduled Saturday morning for an ultrasound of your abdomen please do not eat or drink anything after midnight on Saturday, April 21 in preparation for this test. You will review ultrasound reports at your follow-up appointment with general surgery. We will call you for that appointment when it has been arranged. Return here sooner for new or worsening symptoms. Referrals: Fouzia Wells DO [OSTEOPATHIC DOCTOR] - (We will call you Saturday with your follow-up appointment call sooner for new or worsening symptoms) Medical Decision Making Presents with epigastric/left upper quadrant abdominal pain worsened by eating. Still has her gallbladder. Her vital signs are stable and her abdominal exam is benign. Will try GI cocktail while labs pending. Differentials include peptic ulcer disease, pancreatitis. Less likely gallbladder disease, gastric perforation. Patient declines pain medication at this time stating her pain is managed. She is able to tolerate p.o. fluids well. She did not find any improvement after receiving GI cocktail. Hemodynamically she remained stable. Her abdominal exam remains unremarkable. Labs have been reviewed and are unremarkable. She will be discharged to home clear liquids advance as tolerated she should undergo abdominal ultrasound on Saturday, April 22. We will schedule follow-up appointment with general surgery. She should return here sooner for new or worsening symptoms. Medical Records Medical records reviewed: Yes I reviewed the patient's medical records. Lab Data Lab results reviewed: Yes I reviewed the patient's lab results. HPI General Mode of arrival: ambulatory . Date/Time Provider Initiated Documentation: 04/19/23 20:39 . Limitations to Documentation: no limitations . Information obtained by: patient . HPI Narrative: Is a 37-year-old female patient 1 year who reports approximately 2- week history of epigastric left upper quadrant abdominal pain. She states it started suddenly few weeks ago where she thought she had a GI illness with this abdominal pain nausea and maybe some diarrhea. She states after a few days the symptoms subsided. She denies any sick contacts with similar symptoms. She reports she also noted that after eating pizza the pain significantly got worse 1 night but was not constant but over the past several days has been more constant and definitely worse with eating anything. She reports that her diet is typically not high-fat and she eats a lot of vegetable fruit and chicken. She is still breast-feeding. She has had no similar symptoms. She still has her gallbladder. She reports she did have symptoms of acid reflux but not since being . She has had no fever or chills denies any change in her bowel pattern no black or tarry stool no further vomiting since the initial Related Data Home Medications Medication Instructions Recorded Confirmed prenat.vits,kylah,jvv-glck-tgxwr 1 tab PO DAILY 09/08/21 04/19/23 levonorgestrel 21 mcg/24 hours (8 1 device intrauterine ONCE 05/31/22 04/19/23 yrs) 52 mg intrauterine device (Mirena) diclofenac sodium 1 % topical gel 2 g topical TID PRN 07/18/22 04/19/23 ibuprofen 200 mg tablet 200 mg PO Q6H PRN 07/18/22 04/19/23 selenium sulfide 2.5 % lotion 1 applic topical DAILY 07/18/22 04/19/23 tretinoin 0.025 % topical cream 1 applic topical QHS 07/18/22 04/19/23 Allergies Allergy/AdvReac Type Severity Reaction Status Date / Time Penicillins Allergy Mild Verified 09/17/22 08:26 No Known Drug Allergies Allergy Verified 09/17/22 08:26 General Stated Complaint: Abd Prob CELSO: 3 Review of Systems All systems reviewed & are unremarkable except as noted in HPI and below PFSH All Active Problems (Updated 04/19/23 @ 22:42 by Rosibel Martinez NP) Abdominal pain (Acute) De Quervain's tenosynovitis, right (Acute) Anxiety (Chronic) Depression (Chronic) Tendonitis of wrist, right (Acute) Routine follow-up (Acute) Encounter for insertion of mirena IUD (Acute) Rubella non-immune status, antepartum (Acute) Rh negative state in antepartum period (Acute) Medical History (Updated 04/19/23 @ 22:42 by Rosibel Martinez NP) Anemia Anemia affecting fifth Anemia affecting 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[facility], circumvallate placenta with succenturiate lobe 11/17 COVID-19 affecting in first trimester Cramping complicating , antepartum Depression with anxiety Dysmenorrhea Elderly multigravida in third trimester Exertional shortness of breath History of abnormal cervical Pap smear LEEP procedure History of asthma Hyperpigmentation Normal spontaneous vaginal delivery Pain in symphysis pubis during hemorrhage, delivered Skin lesion Spontaneous onset of labor Tendinitis Threatened in first trimester Tinea corporis Tobacco dependence Vaginal odor Surgical History Cervical Procedure LEEP in her late teens Family History Grandmother Breast cancer maternal Thyroid disorder maternal Maternal Grandmother Thyroid disorder Breast cancer Mother Substance use disorder Depression Bipolar 1 disorder Father Substance use disorder ETOH Social History Smoking/Tobacco Use Status: Former Tobacco Use Smoking risk assessment performed?: Yes Alcohol Intake: never Drug use: Never Substance use type: does not use Do you feel safe at home: Yes Do you feel safe in your relationship?: Yes History History 7 Para 5 Hx # Term Pregnancies 5 Multiple births 0 Hx # Pregnancies 0 Ectopic pregnancies 0 AB induced 0 Hx Number of Living Children 5 AB spontaneous 2 Past Pregnancies Del. 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 Retained membranes x 10 days. febrile, uncertain if treated with antibiotics. Delivery Date: 01/07/06 Last Updated by: Vivi Alonzo uncomplicated delivery Shakira Delivery Date: 01/10/10 Last Updated by: Vivi Alonzo IOL for low fluid, attempted epidural but it was one-sided, Brady Delivery Date: 04/03/22 Last Updated by: PARRISH Mcnulty Exam Const General: cooperative, healthy appearing and comfortable Nutritional Appearance: average body habitus Orientation: alert, awake and oriented x3 HENWI Head: normal to inspection and normocephalic Face and sinus: normal facial exam Mouth: oral mucosae normal Chest Chest: normal inspection of the chest Resp Effort & Inspection: normal respiratory effort Cardio Rate: regular rate Rhythm: regular rhythm GI Inspection: normal to inspection and non-distended Palpation: soft, not firm, no guarding, tender in the epigastrum and in the LUQ and No ascites Skin General skin exam: no rashes or lesions noted Neuro General: patient alert, patient awake and patient oriented x3 Extrem General: normal to inspection, full ROM and no pedal edema Course Vital Signs Vital signs: Vital Signs Temperature 36.8 C 04/19/23 20:42 Pulse 101 H 04/19/23 20:42 Respiratory Rate 20 04/19/23 20:42 Blood Pressure 134/85 04/19/23 20:42 Pulse Oximetry 99 04/19/23 20:42 Temperature 36.8 C 04/19/23 20:42 Pulse 101 H 04/19/23 20:42 Respiratory Rate 20 04/19/23 20:42 Respiratory Effort Normal 04/19/23 20:46 Blood Pressure 134/85 04/19/23 20:42 Blood Pressure Position Sitting 04/19/23 20:42 Pulse Oximetry 99 04/19/23 20:42 Pain Level 3 04/19/23 20:42
[2023-04-19 22:09] LABS: Abs Immature Grans 0.04 10^3/uL (0.0-0.06); Absolute Basophil Count 0.05 10^3/uL (0.0-0.2); Absolute Eosinophil Count 0.11 10^3/uL (0.0-0.7); Absolute Lymphocyte Count 2.25 10^3/uL (1.2-3.4); Absolute Monocyte Count 0.58 10^3/uL (0.1-0.8); Absolute Neutrophil Count 5.74 10^3/uL (1.2-6.7); Basophils % 0.6; Eosinophils % 1.3; HCT 40.1 % (36.0-46.0); HGB 13.3 g/dL (11.2-15.7); Immature Grans % 0.5; Lymphocytes % 25.7; MCH 28.3 pg (27.0-33.0); MCHC 33.2 % (32.0-36.0); MCV 85 fL (80-95); MPV 12.1 fL (8.0-11.0); Monocytes % 6.6; Neutrophils % 65.3; Platelet Count 208 10^3/uL (130-400); RDW 12.4 % (11.7-14.6); RDW-SD 38.9 fL; WBC 8.77 10^3/uL (4.4-10.8)
[2023-04-19 22:34] LABS: Bilirubin Negative (Negative); Blood Negative (Negative); Clarity Clear (Clear); Glucose Negative (Negative); Ketones Trace mg/dL (Negative); Leukocyte Esterase Negative (Negative); Nitrite Negative (Negative); Specific Gravity 1.025 (1.005-1.025); Urobilinogen 0.2 mg/dL (Up to 0.2)
--- NOTE | 2023-04-19 22:47 | NUR.NOTE ---
abd Ultrasound requisition faxed to [facility] for Saturday04/22/23, referral faxed to [facility] for f/u after ultra sound is read and received by surgical assoc. for epigastric pain.Nursing Note:
[2023-04-19 22:49] LABS: ALT 16 U/L (14-59); AST 12 U/L (15-37); Albumin 3.7 g/dL (3.4-5.0); Alkaline Phosphatase 82 U/L (46-116); Anion Gap 10.2 mmol/L (3-11); BUN 14 mg/dL (7-18); Bilirubin, Total 0.3 mg/dL (0.2-1.0); CO2 26.8 mmol/L (21.0-32.0); CREATININE 0.7 mg/dL (0.55-1.02); Calcium 9.3 mg/dL (8.5-10.1); Chloride 103 mmol/L (98-107); Estimated GFR 112.75 (mL/min/1.73m2); Glucose 128 mg/dL (74-106); Lipase 37 U/L (16-77); Potassium 3.1 mmol/L (3.5-5.1); Sodium 140 mmol/L (136-145); Total Protein 7.4 g/dL (6.4-8.2)
[2023-04-19 23:00] VITALS: BP 101/73; PULSE 93; RESP 16; TEMP 36.3; O2SAT 98
== END 2023-04-19 23:01 | disposition home or self-care (01) ==
PROVIDERS: Emergency Provider Nurse Practitioner Acute Care; PCP Nurse Practitioner Family
DX: R10.12 Left upper quadrant pain (principal)
CPT/HCPCS: 36415; 80053; 83690; 99283; 81003; 85025

== ENCOUNTER 2023-04-24 06:30 | Emergency (ER) | payer BC, MEDICAID, SELFPAY ==
[2023-04-24] VITALS (7 sets, daily range): BP systolic 95–107; BP diastolic 61–69; PULSE 68–90; RESP 18–20; TEMP 36.7; O2SAT 98–100
--- NOTE | 2023-04-24 06:30 | DI.US_ITS ---
Exam(s) US PELVIS TRANSVAGINAL EXAM: US PELVIS TRANSVAGINAL CLINICAL HISTORY: rlq pain, suspect untorsed ovarian cyst. TECHNIQUE: Transabdominal and transvaginal pelvic ultrasound was performed using standard protocol. COMPARISON: US US PELVIS from 04/04/2022 FINDINGS: UTERUS: Position: Retroverted. Size: 9.1 long by 5.6 AP by 5.2 transverse cm Endometrium: 0.9 cm. Normal for patient's menstrual status. There is an IUD which is in good position . Myometrium: Unremarkable. Cervix: Unremarkable. OVARIES: Right: 4.6 x 2.7 x 2.7 cm Cyst or mass: No suspicious cystic or solid masses. Left: 3.5 x 2.7 x 1.9 cm Cyst or mass: No suspicious cystic or solid masses. DOPPLER: Color: Symmetric and uniform flow to both ovaries. CUL-DE-SAC: Free fluid: None. Other: There is a question of a small thrombus or slow flow through 1 of the right adnexal vessels. IMPRESSION: 1. Normal-appearing uterus with endometrial stripe within normal limits. 2. IUD is in good position. 3. Unremarkable bilateral ovaries. 4. Findings were discussed with Dr. Izaguirre at 8:12 a.m. on 04/24/2023. DATA REPOSITORY:
--- NOTE | 2023-04-24 06:44 | ED.GENADUL_ITS ---
Discharge Plan Discharge Details Chief Complaint: Abd Prob Clinical Impression: Abdominal pain, RLQ Primary Care Provider: [facility] ED Provider: Selwyn Hsu Home Meds and New Rx's Prescriptions: No Action prenat.vits,kylah,ufz-scqo-txeal Tablet 1 tab PO DAILY Patient Comments: no longer using 04/19/23 Mirena 20 mcg/24 hours (8 yrs) 52 mg intrauterine device 1 device intrauterine ONCE Rx Instructions: as a single dose selenium sulfide 2.5 % lotion 1 applic topical DAILY diclofenac sodium 1 % gel 2 g topical TID PRN Patient Comments: no longer using 04/19/23 Rx Instructions: apply to single elbow, wrist or hand; for hand includes palm/fingers/back of hand ibuprofen 200 mg tablet 200 mg PO Q6H PRN tretinoin 0.025 % cream 1 applic topical QHS Patient Comments: no longer using 04/19/23 Medical Decision Making This is a very pleasant 37-year-old female who presents today for right lower quadrant pain. Patient states that she woke up out of sleep with a mild achiness in the right lower quadrant, and then over the period of about 30 seconds it became severe pain which she states was neither stabbing nor achy but something worse and in between. Pain lasted for about 30 minutes and then it notably improved very rapidly on the way over. She denies any fever, chills, vaginal discharge, vomiting or diarrhea. She does have an intrauterine device in place. She denies any trauma. She states that she has never had pain like this before. She was here few days ago for right upper quadrant pain but states that this is very different. No other complaints. No other modifying factors. She felt notably nauseous when the pain occurred, and felt sweaty and clammy. This is since resolved. Exam demonstrates minimal to mild pain in the right pelvic region. No guarding or rebound. No pain or McBurney's point. Negative [place] sign. Concern is for potential ovarian cyst that did torsed, but has now untorsed. Differential also includes appendicitis but this is notably less likely given clinical history. We will start with ultrasound, and then advance to CT scan if needed. Will give Toradol, gently rehydrate, get labs and reassess. Patient will be signed out to my colleague for follow-up on imaging HPI General Date/Time Provider Initiated Documentation: 04/24/23 06:34 . HPI Narrative: This is a very pleasant 37-year-old female who presents today for right lower quadrant pain. Patient states that she woke up out of sleep with a mild achiness in the right lower quadrant, and then over the period of about 30 seconds it became severe pain which she states was neither stabbing nor achy but something worse and in between. Pain lasted for about 30 minutes and then it notably improved very rapidly on the way over. She denies any fever, chills, vaginal discharge, vomiting or diarrhea. She does have an intrauterine device in place. She denies any trauma. She states that she has never had pain like this before. She was here few days ago for right upper quadrant pain but states that this is very different. No other complaints. No other modifying factors. She felt notably nauseous when the pain occurred, and felt sweaty and clammy. This is since resolved. Related Data Home Medications Medication Instructions Recorded Confirmed prenat.vits,kylah,mdi-xsko-ncxls 1 tab PO DAILY 09/08/21 04/19/23 levonorgestrel 21 mcg/24 hours (8 1 device intrauterine ONCE 05/31/22 04/19/23 yrs) 52 mg intrauterine device (Mirena) diclofenac sodium 1 % topical gel 2 g topical TID PRN 07/18/22 04/19/23 ibuprofen 200 mg tablet 200 mg PO Q6H PRN 07/18/22 04/19/23 selenium sulfide 2.5 % lotion 1 applic topical DAILY 07/18/22 04/19/23 tretinoin 0.025 % topical cream 1 applic topical QHS 07/18/22 04/19/23 Allergies Allergy/AdvReac Type Severity Reaction Status Date / Time Penicillins Allergy Mild Verified 09/17/22 08:26 No Known Drug Allergies Allergy Verified 09/17/22 08:26 General Stated Complaint: Abd Prob CELSO: 3 Review of Systems All systems reviewed & are unremarkable except as noted in HPI and below PFSH All Active Problems (Updated 04/24/23 @ 07:41 by Selwyn Hsu DO) Abdominal pain (Acute) Abdominal pain, RLQ (Acute) De Quervain's tenosynovitis, right (Acute) Anxiety (Chronic) Depression (Chronic) Tendonitis of wrist, right (Acute) Routine follow-up (Acute) Encounter for insertion of mirena IUD (Acute) Rubella non-immune status, antepartum (Acute) Rh negative state in antepartum period (Acute) Medical History Anemia Anemia affecting fifth Anemia affecting 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[facility] [place] [place], circumvallate placenta with succenturiate lobe 11/17 COVID-19 affecting in first trimester Cramping complicating , antepartum Depression with anxiety Dysmenorrhea Elderly multigravida in third trimester Exertional shortness of breath History of abnormal cervical Pap smear LEEP procedure History of asthma Hyperpigmentation Normal spontaneous vaginal delivery Pain in symphysis pubis during hemorrhage, delivered Skin lesion Spontaneous onset of labor Tendinitis Threatened in first trimester Tinea corporis Tobacco dependence Vaginal odor Surgical History Cervical Procedure LEEP in her late teens Family History Grandmother Breast cancer maternal Thyroid disorder maternal Maternal Grandmother Thyroid disorder Breast cancer Mother Substance use disorder Depression Bipolar 1 disorder Father Substance use disorder ETOH Social History Smoking/Tobacco Use Status: Former Tobacco Use Smoking risk assessment performed?: Yes Alcohol Intake: never Drug use: Never Substance use type: does not use Do you feel safe at home: Yes Do you feel safe in your relationship?: Yes History History 7 Para 5 Hx # Term Pregnancies 5 Multiple births 0 Hx # Pregnancies 0 Ectopic pregnancies 0 AB induced 0 Hx Number of Living Children 5 AB spontaneous 2 Past Pregnancies Del. 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 Retained membranes x 10 days. febrile, uncertain if treated with antibiotics. Delivery Date: 01/07/06 Last Updated by: Vivi Alonzo uncomplicated delivery Shakira Delivery Date: 01/10/10 Last Updated by: Vivi Alonzo IOL for low fluid, attempted epidural but it was one-sided, Brady Delivery Date: 04/03/22 Last Updated by: PARRISH Mcnulty Exam Narrative Exam Narrative: 1.Const: Well-nourished, Well-developed, appearing stated age 2.Eyes: PERRL, no conjunctival injection, and symmetrical lids. 3.ENT: Atraumatic external nose and ears. Moist MM. Neck: Symmetric, trachea midline, No thyromegaly. 4.CVS: +S1/S2, No murmurs or gallops. Peripheral pulses 2+ and equal in all extremities. Brisk capillary refill in all extremities. 5.RESP: Unlabored respiratory effort. Clear to auscultation bilaterally. No wheezes rales or rhonchi 6.GI: Soft, nondistended. No guarding or rebound. Mild pain in the right pelvic region. No right lower quadrant tenderness. No epigastric tenderness or right upper quadrant tenderness. 7.MSK: Normocephalic/Atraumatic, Extremities w/o deformity or ttp No cyanosis or clubbing, Normal movement of all extremities 8.Skin: Warm, Dry. No rashes or lesions. 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 Sensation grossly intact, no focal neurologic deficits. 10.Psych: (AAO) x3. Appropriate mood and affect Course Vital Signs Vital signs: Vital Signs Temperature 36.7 C 04/24/23 06:35 Pulse 90 04/24/23 06:35 Respiratory Rate 18 04/24/23 06:35 Blood Pressure 107/69 04/24/23 06:35 Pulse Oximetry 100 04/24/23 06:35 Temperature 36.7 C 04/24/23 06:35 Temperature Source Temporal Artery Scan 04/24/23 06:35 Pulse 90 04/24/23 06:35 Respiratory Rate 18 04/24/23 06:35 Blood Pressure 107/69 04/24/23 06:35 Blood Pressure Position Sitting 04/24/23 06:35 Pulse Oximetry 100 04/24/23 06:35 Oxygen Delivery Method Room Air 04/24/23 06:35 Oxygen Flow Rate 0 04/24/23 06:35 Pain Level 2 04/24/23 06:35
[2023-04-24 07:00] LABS: Abs Immature Grans 0.02 10^3/uL (0.0-0.06); Absolute Basophil Count 0.06 10^3/uL (0.0-0.2); Absolute Eosinophil Count 0.19 10^3/uL (0.0-0.7); Absolute Lymphocyte Count 2.52 10^3/uL (1.2-3.4); Absolute Monocyte Count 0.33 10^3/uL (0.1-0.8); Absolute Neutrophil Count 4.27 10^3/uL (1.2-6.7); Basophils % 0.8; Eosinophils % 2.6; HCT 40.6 % (36.0-46.0); HGB 13.3 g/dL (11.2-15.7); Immature Grans % 0.3; Lymphocytes % 34.1; MCH 28.2 pg (27.0-33.0); MCHC 32.8 % (32.0-36.0); MCV 86 fL (80-95); MPV 11.5 fL (8.0-11.0); Monocytes % 4.5; Neutrophils % 57.7; Platelet Count 203 10^3/uL (130-400); RBC 4.72 10^6/uL (3.93-5.22); RDW 12.2 % (11.7-14.6); RDW-SD 38.4 fL; WBC 7.39 10^3/uL (4.4-10.8)
[2023-04-24] MEDS: Normal Saline 500 ML IV (07:10)
[2023-04-24 07:16] LABS: Bilirubin Negative (Negative); Blood Negative (Negative); Clarity Clear (Clear); Glucose Negative (Negative); Ketones 40 mg/dL (Negative); Leukocyte Esterase Negative (Negative); Nitrite Negative (Negative); Specific Gravity 1.025 (1.005-1.025); Urobilinogen 0.2 mg/dL (Up to 0.2)
[2023-04-24 07:16] LABS: ALT 13 U/L (14-59); AST 10 U/L (15-37); Albumin 3.5 g/dL (3.4-5.0); Alkaline Phosphatase 81 U/L (46-116); Anion Gap 9.7 mmol/L (3-11); BUN 16 mg/dL (7-18); Bilirubin, Total 0.4 mg/dL (0.2-1.0); CO2 24.3 mmol/L (21.0-32.0); CREATININE 0.8 mg/dL (0.55-1.02); Chloride 104 mmol/L (98-107); Estimated GFR 96.06 (mL/min/1.73m2); Glucose 125 mg/dL (74-106); Potassium 3.9 mmol/L (3.5-5.1); Sodium 138 mmol/L (136-145); Total Protein 7.1 g/dL (6.4-8.2)
--- NOTE | 2023-04-24 07:59 | ED.PROG_ITS ---
Date of service: 04/24/23 Time of Service: 07:30 Medical Decision Making This patient was signed out to me. Please see previous notes for H&P and initial eval. In brief, 37yo F presents with severe RLQ pain which resolved; concern for torsion/detorsion. Pending pelvic US. If unrevealing, would proceed with CT. US as below, no ovarian massess/cyst to suggest cause for intermittent torsion, good flow (some suggestion of sluggish flow in one vein, unlikely to be cause of pts symptoms). CT abd/pelvis ordered and independently reviewed, right adenxal cyst on my view, agree with radiology read below with right sided hemorrhagic cyst and small amount of free fluid. On reassessment remains well appearing with reassuring vital signs, no abdominal tenderness, reports pain is minimal. Overall presentation consistent with ruptured cyst. Appropriate for discharge home to close outpatient followup. Discharge instructions and strict return precautions including presenting to the ED for return of pain or any s/s of anemia including lightheadedness or presyncope were reviewed and patient verbalized understanding. All questions were answered and she is in full agreement with the plan. Imaging Data Radiologic Study: Imaging: Ultrasound Radiologist's impression: IMPRESSION: 1. Normal-appearing uterus with endometrial stripe within normal limits. 2. IUD is in good position. 3. Unremarkable bilateral ovaries. Radiologic Study #2: Imaging: CT Scan Radiologist's impression: IMPRESSION: 1. Right hemorrhagic cyst.? Small amount of fluid in the pelvis. 2. Normal appendix. 3. Moderate amount of stool in the colon suggesting constipation. 4. No evidence of cholelithiasis, nephrolithiasis or obstructive uropathy. Sign Out Sign Out Data: Sign Out Comment: Pending ultrasound results for suspected ovarian cyst versus torsion. Recommend CT scan if results are potentially unremarkable after reassessment. Last updated by Selwyn Hsu DO at 04/24/23 07:46 Discharge Plan Disposition Patient Disposition: Home Condition: Good Discharge Details Clinical Impression: Abdominal pain, RLQ, Hemorrhagic cyst of ovary Primary Care Provider: [facility] ED Provider: Leah Izaguirre Home Meds and New Rx's Prescriptions: No Action prenat.vits,kylah,upc-ejam-ihvwz Tablet 1 tab PO DAILY Patient Comments: no longer using 04/19/23 Mirena 20 mcg/24 hours (8 yrs) 52 mg intrauterine device 1 device intrauterine ONCE Rx Instructions: as a single dose selenium sulfide 2.5 % lotion 1 applic topical DAILY diclofenac sodium 1 % gel 2 g topical TID PRN Patient Comments: no longer using 04/19/23 Rx Instructions: apply to single elbow, wrist or hand; for hand includes palm/fingers/back of hand ibuprofen 200 mg tablet 200 mg PO Q6H PRN tretinoin 0.025 % cream 1 applic topical QHS Patient Comments: no longer using 04/19/23 Discharge Instructions Instructions: Ovarian Cyst (ED), Abdominal Pain (ED) Additional Instructions: Call your [facility] CH[facility] ATTENDANT or your PCP today to schedule an appointment within the next 3 days to follow up on your visit today. Return to the emergency department for new or worsening symptoms, including return of your pain, feeling lightheaded or like you are going to pass out, or if you have any other concerns.
--- NOTE | 2023-04-24 08:12 | DI.CT_ITS ---
Exam(s) CT ABDOMEN PELVIS W EXAM: CT ABDOMEN PELVIS W CLINICAL HISTORY: severe intermittent RLQ abd pain TECHNIQUE: Imaging Protocol: Axial computed tomography images with coronal and sagittal reformatted images were created and reviewed CONTRAST MATERIAL: Intravenous: Omnipaque 350 Contrast volume:100 mL Oral: No COMPARISON: US US PELVIS TRANSVAGINAL from 04/24/2023 FINDINGS: ABDOMEN: Lung Bases: Normal where visualized. Liver: Normal density. There are 3 tiny hypodensities seen in the liver. The largest measures 3 mm. They are too small for further characterization. No suspicious hepatic lesions are seen. Portal, Superior Mesenteric, and Splenic Veins: Unremarkable. Gallbladder and Biliary Tract: No radiodense calculus or dilation. Pancreas: Normal density, no abnormal calcifications or inflammatory process. Spleen: Normal. Adrenals: No masses seen. Kidneys: Normal size, contour and axis. No radiodense stones or obstructive uropathy. No masses seen. Abdominal Aorta: Abdominal portion non-dilated. Bowel: There is a moderate amount of stool throughout the colon. There is no evidence of bowel wall thickening or obstruction. There is a normal appendix seen in the right lower quadrant of the abdome n. Peritoneal Cavity: There is a small amount of free fluid in the pelvis. No free air. Lymph Nodes: Within normal limits. Bones: Within normal limits for the patient's age. No large disc herniation or central spinal canal stenosis is seen. Soft Tissues: Unremarkable. PELVIS: Bladder: Symmetric distention, no gross wall thickening. Reproductive Organs: There is an IUD which appears in good position. There is a cyst seen on the rig ht ovary corresponding to a hemorrhagic cyst seen on the pelvic ultrasound. Lymph Nodes: Within normal limits. Bones: Within normal limits for the patient's age. IMPRESSION: 1. Right hemorrhagic cyst. Small amount of fluid in the pelvis. 2. Normal appendix. 3. Moderate amount of stool in the colon suggesting constipation. 4. No evidence of cholelithiasis, nephrolithiasis or obstructive uropathy. 5. Findings were discussed with Dr. Izaguirre at 8:53 a.m. on 04/24/2023. RADIATION DOSE DELIVERED: 602.89mGy.cm Total DLP DATA REPOSITORY: All CT scans at this facility are submitted to the National Radiology Data Registry (NRDR) Dose Index Registry (DIR) with the [employer] (ACR). RADIATION OPTIMIZATION: All CT scans at this facility use at least one of these dose optimization te chniques: automated exposure control; mA and/or kV adjustment per patient size (includes targeted exa ms where dose is matched to clinical indication); or iterative reconstruction.
[2023-04-24] MEDS: Omnipaque 350 MG/ML 100 ML BTL IJ (08:28)
[2023-04-24] MEDS: Normal Saline - Diluent 50 ML VIAL IJ (08:28)
== END 2023-04-24 09:25 | disposition home or self-care (01) ==
PROVIDERS: Student in an Organized Health Care Education/Training Program; Emergency Provider Student in an Organized Health Care Education/Training Program; PCP Nurse Practitioner Family
DX: R10.31 Right lower quadrant pain; Z97.5 Presence of (intrauterine) contraceptive device; N83.201 Unspecified ovarian cyst, right side
CPT/HCPCS: 80053; 81025; 96361; 96374; 99285; 74177; 76830; 76856; 81003; 85025; J3490

== ENCOUNTER 2023-04-29 04:38 | Outpatient (CLI) | payer BC, MEDICAID, SELFPAY ==
[2023-04-29] MEDS: Inhaler, Assist Device 1 EACH MC (14:13)
[2023-04-29] MEDS: Levalbuterol HFA 15 GM INH 4 PUFF IH (14:13)
--- NOTE | 2023-04-30 07:13 | W.PFT ---
Date of service: 04/29/23 Time of Service: 13:00 Pulmonary Function Test Result Indications: [facility] Interpretation Spirometry: There is no airflow limitation. There is no bronchodilator response. Lung Volumes: There is air trapping and hyperinflation Diffusion Capacity: Normal diffusion Airway Pressure: Normal airways resistance Impression Air trapping and hyperinflation with otherwise normal pulmonary function. This could be consistent with asthma in the correct clinical context. Clinical Correlation therefore is recommended.
== END 2023-04-29 04:39 | disposition home or self-care (01) ==
LOC: RT 04:39
PROVIDERS: PCP Nurse Practitioner Family; Visit Provider Nurse Practitioner Family
DX: R06.09 Other forms of dyspnea (principal); U09.9 Post COVID-19 condition, unspecified
CPT/HCPCS: 94060; 94726; 94729

== ENCOUNTER 2023-11-08 09:55 | Outpatient (REF) | payer BC, SELFPAY ==
[2023-11-08 19:45] LABS: Calculated LDL 96 mg/dL (<100); Cholesterol 162 mg/dL (<200); HDL Cholesterol 60 mg/dL (40-60); Triglyceride 30 mg/dL (<150)
== END 2023-11-08 09:56 | disposition home or self-care (01) ==
LOC: NCHCN 09:55
PROVIDERS: PCP Nurse Practitioner Family; Visit Provider Family Medicine
DX: Z13.220 Encounter for screening for lipoid disorders (principal)
CPT/HCPCS: 80061

== ENCOUNTER 2023-11-26 16:02 | Outpatient (REF) | payer BC, SELFPAY ==
[2023-11-26 18:42] LABS: Abs Immature Grans 0.01 10^3/uL (0.0-0.06); Absolute Basophil Count 0.06 10^3/uL (0.0-0.2); Absolute Eosinophil Count 0.09 10^3/uL (0.0-0.7); Absolute Lymphocyte Count 3.14 10^3/uL (1.2-3.4); Absolute Monocyte Count 0.38 10^3/uL (0.1-0.8); Absolute Neutrophil Count 3.94 10^3/uL (1.2-6.7); Basophils % 0.8 %; Eosinophils % 1.2 %; HCT 42.5 % (36.0-46.0); HGB 14.2 g/dL (11.2-15.7); Immature Grans % 0.1 %; Lymphocytes % 41.2 %; MCH 28.6 pg (27.0-33.0); MCHC 33.4 % (32.0-36.0); MCV 86 fL (80-95); MPV 12.2 fL (8.0-11.0); Neutrophils % 51.7 %; Platelet Count 237 10^3/uL (130-400); RBC 4.97 10^6/uL (3.93-5.22); RDW 12.5 % (11.7-14.6); RDW-SD 38.9 fL; WBC 7.62 10^3/uL (4.4-10.8)
[2023-11-26 19:00] LABS: ALT 19 U/L (14-59); AST 18 U/L (15-37); Alkaline Phosphatase 64 U/L (46-116); Anion Gap 7.8 mmol/L (3-11); BUN 20 mg/dL (7-18); Bilirubin, Total 0.3 mg/dL (0.2-1.0); CO2 27.2 mmol/L (21.0-32.0); CREATININE 0.7 mg/dL (0.55-1.02); Calcium 8.7 mg/dL (8.5-10.1); Chloride 104 mmol/L (98-107); Estimated GFR 112.05 (mL/min/1.73m2); Glucose 156 mg/dL (74-106); Potassium 3.9 mmol/L (3.5-5.1); Sodium 139 mmol/L (136-145); TSH (W/Ref FT4) 2.24 uIU/mL (0.36-3.74); Total Protein 7.7 g/dL (6.4-8.2)
== END 2023-11-26 16:03 | disposition home or self-care (01) ==
LOC: NCHCN 16:02
PROVIDERS: PCP Nurse Practitioner Family; Visit Provider Nurse Practitioner Family
DX: R63.4 Abnormal weight loss (principal)
CPT/HCPCS: 80053; 84443; 85025

== ENCOUNTER 2024-01-02 05:05 | Outpatient (CLI) | payer SELFPAY ==
[2024-01-02 08:06] LABS: Hemoglobin A1C 5.8 % (<5.7)
== END 2024-01-02 05:06 | disposition home or self-care (01) ==
LOC: LBO 05:05
PROVIDERS: PCP Nurse Practitioner Family; Visit Provider Nurse Practitioner Family
DX: R73.09 Other abnormal glucose (principal)
CPT/HCPCS: 36415; 83036

== ENCOUNTER 2024-02-24 18:54 | Outpatient (REF) | payer SELFPAY ==
--- OUTSIDE RECORDS SUMMARY | 2024-02-24 18:58 | XMS_ITS | Encounter Summary ---
Author Organization [facility] Address [address] [place] [address] Care Team Providers Care Paint And Table Edger Name Role Phone Willy Okeefe MD Primary Care Provider Un available Encounter Details Date Type Department Care Team (Late st Contact Info) Description 03/17/2018 Results Only [facility]- [facility] [phone] Jazlyn Rivera, [facility] [address] [place] [address] [place] [id number] Social History Tobacco Use Types Packs/Day Years Used Date Smoking Tobacco: Never Assessed Sex and Gender Information Value Date Recorded Sex Assigned at Not on file Gender Identity Not on file Sexual Orientation Not on file documented as of this encounter Plan of Treatment Not on file documented as of this encounter Procedures Procedure Name Priority Date/Time Associated Diagnosis Comments PAP TEST- RESULT ONLY Routine 03/17/2018 0:00 EDT documented in this encounter Results * PAP TEST- RESULT ONLY (03/17/2018 0:00 EDT) Pathology Report: CYTOPATHOLOGY REPORT Reports generated via electronic interface contain original data; however they are lacking the format of the original report. Caution should be taken when reading/interpreti ng unformatted reports. Name: ? CHAGO JOHNSON ? Accession #: ? [id number] ? : ? 1985 (Age: 32) ??F ?Collect Date: ? 03/17/2018 ? Location: ? [facility] ? Receive Date: ? 03/18/2018 ? Provider: JAZLYN RIVERA YIELD ENGINEER Copy to: ? Final Report SPECIMEN ADEQUACY ? Satisfactory for Evaluation - transformation zone component present GENERAL CATEGORIZATION ? Negative for Intraepithelial Lesion or Malignancy INTERPRETATION ? Shift in jose present suggestive of bacterial vaginosis. Last Menstrual Period: 03/01/2018 Specimen/Source: ??Pap Test, Cervix, ThinPrep Imaging System with manual evaluation Document reviewed and electronically signed by: ? Kerri Anderson, CT(ASCP) ? Report ??Date: 03/28/2018 11:20 HPV with Pap Test ? Date Ordered: ? 03/28/2018 ? Status: ?? Signed Out ?Date Complete: ? 03/31/2018 ? By: ??System Interface ? Date Reported: ? 03/31/2018 ? Interpretation RESULT: Negative for HPV. No E6 or E7 mRNA is detected from HPV types 16,18,31,33,35, 39,45,51,52,56,58, 59,66, and 68 by occupational therapy technician mediated amplification. Comments Document reviewed and electronically signed by: ? System Interface ? Report date: 03/31/2018 By the signature above, the attending physician certifies that he/she has personally conducted a gross and/or microscopic examination of the described specimens and rendered or confirmed the above diagnosis. End of Report [facility] 03/17/2018 03/18/2018 Jazlyn Rivera YIELD ENGINEER PATHOLOGY ORDERABLES Performing Organization Address City/State/[facility] Co de Phone Number [facility] [address] [place] [address] documented in this encounter Visit Diagnoses Not on filedocumented in this encounter Care Teams Paint And Table Edger Relationship Specialty Start Date End Date Willy Okeefe MD PCP - General 06/19/11 04/27/22 documented as of this encounter
--- OUTSIDE RECORDS SUMMARY | 2024-02-24 18:58 | XMS_ITS | Clinical Summary ---
Author Organization [facility] Address [address] [place] [id number] Care Team Providers Care Clinical Implementation Specialist Name Role Phone Jamila Bartholomew TR[employer]ES ATTORNEY Primary Care Provider [phone] Social History Tobacco Use Types Packs/Day Years Used Date Smoking Tobacco: Never Assessed Sex and Gender Information Value Date Recorded Sex Assigned at Not on file Gender Identity Not on file Sexual Orientation Not on file Plan of Treatment Health Maintenance Due Date Last Done Comments Hepatitis B Vaccine (1 of 3 - 19+ 3-dose series) 2002 COVID-19 Vaccine ( season) 2023 Hepatitis C Screen Completed 09/28/2021, 08/10/2006 Procedures Procedure Name Priority Date/Time Associated Diagnosis Comments HEPATITIS C AB W REFLEX TO HCV RNA BY PCR Routine 09/28/2021 16:00 EST from Last 3 Months or Most Recently Relevant to Health Maintenance Results * HEPATITIS C AB W REFLEX TO HCV RNA BY PCR (09/28/2021 16:00 EST) Hep C Antibody Negative Negative 10/02/2021 10:07 EST [facility] Blood VENOUS BLOOD / Unknown 09/28/2021 16:00 EST 09/29/2021 16:30 EST Provider Outr Resulting Lab CHEMISTRY & BLOOD GAS ORDERABLES [facility] [address] [place] [address] from Last 3 Months or Most Recently Relevant to Health Maintenance Care Teams Clinical Implementation Specialist Relationship Specialty Start Date End Date Jamila Bartholomew NP [facility] [place] [address] PCP - General Family Medicine - Primary Care 04/28/22
--- OUTSIDE RECORDS SUMMARY | 2024-02-24 18:58 | XMS_ITS | Encounter Summary ---
Author Organization [facility] Address [address] [place] [address] Care Team Providers Care Pipefitter Name Role Phone Willy Okeefe MD Primary Care Provider Un available Jamila Bartholomew NP Primary Care Provider [phone] Encounter Details Date Type Department Care Team (Late st Contact Info) Description 04/04/2022 Lab Requisition [facility] Pathology & Laboratory Medicine - [facility] [address] [place] [address] Donna Parsons [address] [place] [address] [place] [address] Encounter for full-term uncomplicated delivery; Circumvallate placenta, unspecified trimester; Other immediate hemorrhage Social History Tobacco Use Types Packs/Day Years Used Date Smoking Tobacco: Never Assessed Sex and Gender Information Value Date Recorded Sex Assigned at Not on file Gender Identity Not on file Sexual Orientation Not on file documented as of this encounter Plan of Treatment Not on file documented as of this encounter Procedures Procedure Name Priority Date/Time Associated Diagnosis Comments SURGICAL PATHOLOGY Today 04/04/2022 9: 50 EDT Encounter for full-term uncomplicated delivery Circumvallate placenta, unspecified trimester Other immediate hemorrhage documented in this encounter Results * SURGICAL PATHOLOGY (04/04/2022 9:50 EDT) Note to Patient The following pathology results have been interpreted by your pathologist and may be available to you before your health provider has had the opportunity to review them. Please allow time for your provider to receive these results and explore management options, if applicable. 05/10/2022 11:25 [facility] Final Diagnosis A. RETAINED PLACENTAL TISSUE, REMOVAL: - Gestational endometrium and myometrium with features of adenomyoma/adenom yosis - Negative for malignancy 05/10/2022 11:25 [facility] Attestation By the signature below, the attending physician certifies that they have 1) personally conducted a gross and/or microscopic examination of the described specimen(s), and/or personally interpreted the results of laboratory testing of the described specimen(s), and 2) personally rendered or confirmed the above diagnosis. 05/10/2022 11:25 [facility] at 1124 Clinical History Placental tissue, retained, 39.4 weeks 05/10/2022 11:25 [facility] Gross Description A. Received in formalin labelled with proper patient identification (initials B, M) and placental lobe is an ovoid lobe red brown tissue (7.0 x 5.5 x 2.2 cm). One side of the tissue is purple-york to hemorrhagic in generally smooth and the other side is bennett to brown slightly roughened and ragged. Sectioning reveals soft bennett to dark brown spongy, mucinous parenchyma that is centrally bennett-red and edematous. No masses or lesions are grossly identified. Carbon Dioxide Operator sections are submitted in A1-A3. ANITRA MCDONALD(ASCP) 04/05/2022 8:53 05/10/2022 11:25 T [facility] Performing Lab [facility] 05/10/2022 11:25 [facility] Scanned Images 05/10/2022 11:25 [facility] Tissue PRODUCTS OF CONCEPTION TISSUE SPECIMEN / Unknown 04/04/2022 9:50 EDT 04/04/2022 19:03 EDT Donna Parsons PATHOLOGY ORDERABLES [facility] [address] [place] [address] documented in this encounter Visit Diagnoses Diagnosis Encounter for full-term uncomplicated delivery Normal delivery Circumvallate placenta, unspecified trimester Other immediate hemorrhage documented in this encounter Care Teams Pipefitter Relationship Specialty Start Date End Date Willy Okeefe MD PCP - General 06/19/11 04/27/22 Jamila Bartholomew NP [address] [place] [address] PCP - General Family Medicine - Primary Care 04/28/22 documented as of this encounter
--- OUTSIDE RECORDS SUMMARY | 2024-02-24 18:58 | XMS_ITS | Encounter Summary ---
Author Organization [facility] Address [address] [place] [address] Care Team Providers Care Flooring Helper Name Role Phone Willy Okeefe MD Primary Care Provider Un available Jamila Bartholomew NP Primary Care Provider [phone] Encounter Details Date Type Department Care Team (Late st Contact Info) Description 04/04/2022 Lab Requisition [facility] Pathology & Laboratory Medicine - [facility] [address] [place] [address] [place], [place] [id number] Encounter for full-term uncomplicated delivery; Circumvallate placenta, [...] Date/Time Associated Diagnosis Comments SURGICAL PATHOLOGY Today 04/03/2022 21 :14 EDT documented in this encounter Results * SURGICAL PATHOLOGY (04/03/2022 21:14 EDT) Note to Patient The following pathology results have been interpreted by your pathologist and may be available to you before your health provider has had the opportunity to review them. Please allow time for your provider to receive these results and explore management options, if applicable. 05/09/2022 16:28 [facility] Final Diagnosis PLACENTA, 39 4/7 WEEKS, VAGINAL DELIVERY: - Farmer placenta, 630 grams (>90th percentile for given gestational age) - Placental disk large for dates - Patchy excess subchorionic fibrin - membranes with no significant histopathologic abnormality - 3 vessel umbilical cord 05/09/2022 16:28 [facility] Attestation There was significant resident/fellow involvement in the diagnostic evaluation of this case. By the signature below, the attending physician certifies that they have personally conducted a gross and/or microscopic examination of the described specimens and rendered or confirmed the above diagnosis. 05/09/2022 16:28 [facility] at 1628 Clinical History Circumvallate placenta; tight nuchal cord; resuscitation; succinurate lobe identified on ultrasound-undeliv ered at this time; 39.4 weeks 05/09/2022 16:28 [facility] Gross Description A. Received in formalin labelled with proper patient identification (initials B, M) and placenta is an intact farmer placenta. There is a 47.0 cm in length and 1.3 cm in diameter attached, 3 vessel white umbilical cord. It demonstrates paracentral insertion 6.2 cm from the nearest disc margin. There are 3 coils per 10 cm. The membranes are bennett and bennett purple and semitranslucent with circumvallate insertion. Proportion of circumvallate insertion represents 80% of the circumference. Point of rupture is unable to be determined due to the density of membrane and separation from the placental disc. The disk is 630 g, (trimmed, formalin fixed), 16.5 x 16.0 x 3.0 cm and ovoid. The surface is bennett purple and semiopaque with a dispersed vascular pattern. There are scattered bennett black diffusely throughout the surface. The maternal surface is bennett-brown with an intact basal plate. There is no adherent blood clot. The cut surface of the placental parenchyma is red-brown and spongy. There are no discrete lesions present. Network Systems Consultant sections are submitted as follows: BLOCK LAY A1- membrane roll and cross-section of end of cord A2- membrane roll and cross-section of cord 5 cm from insertion site A3-A4- full thickness section of placental disc adjacent to umbilical cord insertion site, bisected A5-A8- two full thickness sections of central 2/3 of placental disc, each bisected ELISSA PARR MD 04/05/2022 13:21 05/09/2022 16:28 EDT [facility] Resident/Gustavo w: Elissa Parr MD 05/09/2022 16:28 EDT [facility] Performing Lab [facility] 16:28 EDT [facility] Scanned Images 05/09/2022 16:28 EDT [facility] Tissue PLACENTAL STRUCTURE / Unknown 04/03/2022 21:14 EDT 04/04/2022 18:54 EDT Tonya Camacho [facility] NIDHI DYER Performing Organization Address City/State/[facility] Co de Phone Number [facility] [address] [place] [address] documented in this encounter Visit Diagnoses Diagnosis Encounter for full-term uncomplicated delivery Normal delivery Circumvallate placenta, unspecified trimester Other immediate hemorrhage documented in this encounter Care Teams Flooring Helper Relationship Specialty Start Date End Date Willy Okeefe MD PCP - General 06/19/11 04/27/22 Jamila Bartholomew PROPERTY CLERK [address] [place] [address] PCP - General Family Medicine - Primary Care 04/28/22 documented as of this encounter
--- OUTSIDE RECORDS SUMMARY | 2024-02-24 18:58 | XMS_ITS | Encounter Summary ---
Author Organization [facility] Address [address] [place] [address] Care Team Providers Care Crepe Sole Wire Brusher Name Role Phone Willy Okeefe MD Primary Care Provider Un available Jamila Bartholomew NP Primary Care Provider [phone] Encounter Details Date Type Department Care Team (Late st Contact Info) Description 04/05/2022 Lab Requisition [facility] Pathology & Laboratory Medicine - [facility] [address] [place] [address] [place], [place] [address] Social History Tobacco Use Types Packs/Day Years Used Date Smoking Tobacco: Never Assessed Sex and Gender Information Value Date Recorded Sex Assigned at Not on file Gender Identity Not on file Sexual Orientation Not on file documented as of this encounter Plan of Treatment Not on file documented as of this encounter Procedures Procedure Name Priority Date/Time Associated Diagnosis Comments SCREEN TEST Today 04/05/2022 9:03 EDT documented in this encounter Results * SCREEN TEST (04/05/2022 9:03 EDT) Screen Test NEGATIVE 04/05/2022 20:55 EDT [facility] Comment:results called to Adolph Calix in Blood Bank at [facility]. Fax results to follow Blood VENOUS BLOOD / Unknown 04/05/2022 9:03 EDT 04/05/2022 20:06 EDT Tonya Camacho [facility] MARQUES TS [facility] [address] [place] [address] documented in this encounter Visit Diagnoses Not on filedocumented in this encounter Care Teams Crepe Sole Wire Brusher Relationship Specialty Start Date End Date Willy Okeefe MD PCP - General 06/19/11 04/27/22 Jamila Bartholomew NP [address] [place] [address] PCP - General Family Medicine - Primary Care 04/28/22 documented as of this encounter
--- OUTSIDE RECORDS SUMMARY | 2024-02-24 18:58 | XMS_ITS | Encounter Summary ---
Author Organization [facility] Address [address] [place] [address] Care Team Providers Care Environmental Department Manager Name Role Phone Willy Okeefe MD Primary Care Provider Un available Jamila Bartholomew NP Primary Care Provider [phone] Encounter Details Date Type Department Care Team (Late st Contact Info) Description 09/29/2021 Lab Requisition [facility] Pathology & Laboratory Medicine - [facility] [address] [place], [place] [address] Outr Resulting Lab, Provider Social History Tobacco Use Types Packs/Day Years Used Date Smoking Tobacco: Never Assessed Sex and Gender Information Value Date Recorded Sex Assigned at Not on file Gender Identity Not on file Sexual Orientation Not on file documented as of this encounter Plan of Treatment Not on file documented as of this encounter Procedures Procedure Name Priority Date/Time Associated Diagnosis Comments [facility] Today 09/28/2021 16:00 EST [facility] Today 09/28/2021 16:00 EST HIV 1/2 ANTIGEN AND ANTIBODY, 4TH GENERATION Today 09/28/2021 16:00 EST documented in this encounter Results * [facility] (09/28/2021 16:00 EST) Hold Hold 09/29/2021 17:32 EST [facility] Blood VENOUS BLOOD / Unknown 09/28/2021 16:00 EST 09/29/2021 16:31 EST Provider Outr Resulting Lab LAB INFO SER VICE AND SUPPORT & PHONE RESULT Performing Organization Address [facility] Co de Phone Number [facility] [address] [place] [address] * HOLD SST (09/28/2021 16:00 EST) Hold Hold 09/29/2021 17:32 EST [facility] Blood VENOUS BLOOD / Unknown 09/28/2021 16:00 EST 09/29/2021 16:30 EST Provider Outr Resulting Lab LAB INFO SER VICE AND SUPPORT & PHONE RESULT Performing Organization Address [facility] Co de Phone Number [facility] [address] [place] [address] * HIV 1/2 ANTIGEN AND ANTIBODY, 4TH GENERATION (09/28/2021 16:00 EST) HIV 1 and 2 Antibody/p24 Antigen, 4th Generation Negative Negative 10/02/2021 11:38 EST [facility] Comment:If acute HIV-1 infec tion is suspected in a high risk patient, submit plasma specimen for HIV-1 RNA quantitation test. Blood VENOUS BLOOD / Unknown 09/28/2021 16:00 EST 09/29/2021 16:30 EST Narrative [facility] - 10/02/2021 11:38 EST Fourth Generation assay performed on the Siemens Centaur XPT. Provider Outr Resulting Lab IMMUNOLOGY A ND SEROLOGY ORDERABLES Performing Organization Address [facility] Co de Phone Number [facility] [address] [place] [address] documented in this encounter Visit Diagnoses Not on filedocumented in this encounter Care Teams Environmental Department Manager Relationship Specialty Start Date End Date Willy Okeefe MD PCP - General 06/19/11 04/27/22 Jamila Bartholomew YARN HAULER [address] [place], [place] [address] [address] PCP - General Family Medicine - Primary Care 04/28/22 documented as of this encounter
--- OUTSIDE RECORDS SUMMARY | 2024-02-24 18:58 | XMS_ITS | Encounter Summary ---
Author Organization [facility] Address [facility] [place] [address] Care Team Providers Care Process Cheese Cooker Name Role Phone None Primary Care Provider Unavailabl e Reason for Visit * Reason Comments Ultrasound * Consultation (Routine) - Closed Specialty Diagnoses / Procedures Referred By Lia trinh Referred To Contact Obstetrics and Gynecology Diagnoses Supervision of elderly multigravida in second trimester Vivi Alonzo, [address] [place] [address] [facility] [address] [place] [address] Referral ID Status Reason Start Date Expiration Date V isits Requested Visits Authorized [id number] Closed Consult, Test & Treat 09/25/2021 09/25/2022 6 6 Encounter Details Date Type Department Care Team (Late st Contact Info) Description 11/17/2021 4:00 PM EDT Office Visit Obstetrics [place] [address] Maya King MD [facility] DR OBSTET[place] [address] Multigravida of advanced maternal age in second trimester; Placental abnormality in second trimester Social History Tobacco Use Types Packs/Day Years Used Date Smoking Tobacco: Former Smokeless Tobacco: Never Alcohol Use Standard Drinks/Week Comments Not Currently 0 (1 standard drink = 0.6 oz pur e alcohol) Comments Yes Sex and Gender Information Value Date Recorded Sex Assigned at Not on file Gender Identity Not on file Sexual Orientation Not on file documented as of this encounter Last Filed Vital Signs Vital Sign Reading Time Taken Comments Blood Pressure 112/64 11/17/2021 4:39 PM EDT Pulse - - Temperature - - Respiratory Rate - - Oxygen Saturation - - Inhaled Oxygen Concentration - - Weight 72.8 kg (160 lb 9.6 oz) 11/17/2021 4:39 P M EDT Height - - Body Mass Index - - documented in this encounter Progress Notes * Maya King MD - 11/17/2021 4:00 PM EDT Diagnosis/Maternal Medicine Consult Note Nicole Arita is a 36 y.o. year old female who is at 20 0/7 weeks gestation. She is seen in consultation at the request of Vivi Alonzo CNM for evaluation of AMA. She was seen today for maternal- medicine consultation and ultrasound evaluation. She had low risk Panorama screening. Review of Systems Constitutional:feels well Movement: normal Contractions: none Leaking: None Bleeding: None There are no problems to display for this patient. Past Medical History: Diagnosis Date ??? Anemia ??? COVID Past Surgical History: Procedure Laterality Date ??? WISDOM TOOTH EXTRACTION No family history on file. Social History Occupational History ??? Not on file Tobacco Use ??? Smoking status: Former Smoker ??? Smokeless tobacco: Never Used Vaping Use ??? Vaping Use: Never used Substance and Sexual Activity ??? Alcohol use: Not Currently ??? Drug use: Never ??? Sexual activity: Not on file OB History 7 Para 4 Term 4 AB 2 Living 4 SAB 2 IAB Ectopic Multiple Live Births 4 # Outc Date GA Lbr Surya/2nd Wgt Sex Del Anes PTL Lv 1 SAB 2 SAB 3 Term 2001 38w0d 3.062 kg (6 lb 12 oz) Vag-Spont 4 Term 2004 39w0d 3.062 kg (6 lb 12 oz) Vag-Spont 5 Term 2005 38w0d 3.515 kg (7 lb 12 oz) Vag-Spont 6 Term 2009 37w0d 3.459 kg (7 lb 10 oz) Vag-Spont 7 Current Current Outpatient Medications Medication Sig Dispense Refill ??? iron,carb/vit C/vit B12/folic (IRON 100 PLUS ORAL) Take by mouth. ??? aspirin EC 81 mg Tablet, Delayed Release (E.C.) Take 81 mg by mouth daily. ??? multivitamin (THERAGRAN) Tablet Take 1 tablet by mouth daily. No current facility-administered medications for this visit. No Known Allergies Ultrasound Date: 11/17/2021 Amniotic fluid volume increased Presentation cephalic Placenta posterior, circumvallate with succenturiate lobe Growth appropriate for gestational age anatomy unremarkable Physical Exam BP 112/64 Wt 72.8 kg (160 lb 9.6 oz) General: alert, well appearing, in no apparent distress HEENT: normocephalic, atraumatic Abdomen: Soft, nontender Neurologic:alert, oriented, normal speech, no focal findings or movement disorder noted Psychiatric: Affect is Appropriate. Assessment and Recommendations: 36 y.o. year old female at 20 weeks gestation, referred for counseling regarding AMA. I spent 30 minutes in face to face time with the patient of which 100% was in direct counseling. We reviewed the ultrasound findings and limitations of ultrasound in detecting anomalies and aneuploidy. The anatomy, fluid, growth and placenta appear unremarkable except the placenta appears circumvallate with a succenturiate lobe. 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can be associated with growth issues. I recommend a follow up ultrasound for growth assessment at 32 weeks. Care should be taken at the time of placenta delivery to assess for complete removal of the placenta and accessory lobe to avoid retained products of conception. I appreciate the opportunity to be involved in this patients care, and am available if further questions should arise. MAYA KING MD 11/28/2021 Cc: Vivi Alonzo, [facility] [address] [address] , with copy of ultrasound report documented in this encounter Plan of Treatment Not on file documented as of this encounter Visit Diagnoses Diagnosis Multigravida of advanced maternal age in second trimester Placental abnormality in second trimester documented in this encounter Care Teams Process Cheese Cooker Relationship Specialty Start Date End Date None None PCP - General 09/26/21 documented as of this encounter
--- OUTSIDE RECORDS SUMMARY | 2024-02-24 18:58 | XMS_ITS | Referral Summary ---
Author Organization [facility] Address [address] [place] [address] Care Team Providers Care Foreign Language Interpreter Name Role Phone Jamila Bartholomew MARBLE CEILING INSTALLER Primary Care Provider [phone] Social History Tobacco Use Types Packs/Day Years Used Date Smoking Tobacco: Never Assessed Sex and Gender Information Value Date Recorded Sex Assigned at Not on file Gender Identity Not on file Sexual Orientation Not on file Plan of Treatment Not on file Procedures Procedure Name Priority Date/Time Associated Diagnosis Comments HEPATITIS C AB W REFLEX TO HCV RNA BY PCR Routine 09/28/2021 16:00 EST from Last 3 Months or Most Recently Relevant to Health Maintenance Results * HEPATITIS C AB W REFLEX TO HCV RNA BY PCR (09/28/2021 16:00 EST) Hep C Antibody Negative Negative 10/02/2021 10:07 EST [facility] Blood VENOUS BLOOD / Unknown 09/28/2021 16:00 EST 09/29/2021 16:30 EST Provider Outr Resulting Lab CHEMISTRY & BLOOD GAS ORDERABLES [facility] [address] [place] [address] from Last 3 Months or Most Recently Relevant to Health Maintenance Care Teams Foreign Language Interpreter Relationship Specialty Start Date End Date Jamila Bartholomew NP [facility] [place] [address] PCP - General Family Medicine - Primary Care 04/28/22
--- OUTSIDE RECORDS SUMMARY | 2024-02-24 18:58 | XMS_ITS | Encounter Summary ---
Author Organization [facility] Address [address] [place] [address] Care Team Providers Care Wood Crew Supervisor Name Role Phone Willy Okeefe MD Primary Care Provider Un available Jamila Bartholomew NP Primary Care Provider [phone] Encounter Details Date Type Department Care Team (Late st Contact Info) Description 09/29/2021 Lab Requisition [facility] Pathology & Laboratory Medicine - [facility] [address] [place] [address] Outr Resulting Lab, Provider Social History Tobacco [...] RNA BY PCR Routine 09/28/2021 16:00 EST HEPATITIS B SURFACE ANTIGEN Routine 09/28/2021 16:00 EST documented in this encounter Results * HEPATITIS B SURFACE ANTIGEN (09/28/2021 16:00 EST) Hep B Surface Ag Negative Negative 10/02/2021 10:32 EST [facility] Blood VENOUS BLOOD / Unknown 09/28/2021 16:00 EST 09/29/2021 16:30 EST Provider Outr Resulting Lab CHEMISTRY & BLOOD GAS ORDERABLES Performing Organization Address City/[facility]/ZIP Co de Phone Number [facility] [address] [place] [address] * HEPATITIS C AB W REFLEX TO HCV RNA BY PCR (09/28/2021 16:00 EST) Hep C Antibody Negative Negative 10/02/2021 10:07 EST [facility] Blood VENOUS BLOOD / Unknown 09/28/2021 16:00 EST 09/29/2021 16:30 EST Provider Outr Resulting Lab CHEMISTRY & BLOOD GAS ORDERABLES Performing Organization Address City/[facility] Co de Phone Number [facility] [address] [place] [address] documented in this encounter Visit Diagnoses Not on filedocumented in this encounter Care Teams Wood Crew Supervisor Relationship Specialty Start Date End Date Willy Okeefe MD PCP - General 06/19/11 04/27/22 Jamila Bartholomew SOLID GLASS ROD DOWEL MACHINE OPERATOR [facility] [place] [address] PCP - General Family Medicine - Primary Care 04/28/22 documented as of this encounter
--- OUTSIDE RECORDS SUMMARY | 2024-02-24 18:58 | XMS_ITS | Encounter Summary ---
[facility] [place] [address] Care Team Providers Care Director Of Product Marketing Name Role Phone None Primary Care Provider Unavailabl e Reason for Referral * Diagnostic Test (Routine) - Closed Specialty Diagnoses / Procedures Referred By Contac t Referred To Contact Radiology Diagnoses Elderly multigravida with antepartum condition or complication Procedures US OB Detailed Morphology Vivi Alonzo CNM [address] [place] [address] [address] [place] [address] [place] [address] Referral ID Status Reason Start Date Expiration Date V isits Requested Visits Authorized [id number] Closed Specialty Service Requested 09/26/2021 03/29/2023 1 1 Reason for Visit * Diagnostic Test (Routine) - Closed Specialty Diagnoses / Procedures Referred By Contac t Referred To Contact Radiology Diagnoses Elderly multigravida with antepartum condition or complication Procedures US OB Detailed Morphology Vivi Alonzo CNM [address] [place] [address] [address] [place] [address] [place] [address] Referral ID Status Reason Start Date Expiration Date V isits Requested Visits Authorized [id number] Closed Specialty Service Requested 09/26/2021 03/29/2023 1 1 Encounter Details Date Type Department Care Team (Latest Contact Info) Description 11/17/2021 2:45 PM EDT - 11/17/2021 11:59 PM EDT Hospital [place] [address] Vivi Alonzo, [facility] [address] [place] [address] Elderly multigravida with antepartum condition or complication Discharge Disposition: Home Social History Tobacco Use Types Packs/Day Years Used Date Smoking Tobacco: Former Smokeless Tobacco: Never Alcohol Use Standard Drinks/Week Comments Not Currently 0 (1 standard drink = 0.6 oz pur e alcohol) Comments Yes Sex and Gender Information Value Date Recorded Sex Assigned at Not on file Gender Identity Not on file Sexual Orientation Not on file documented as of this encounter Medications at Time of Discharge Medication Sig Dispensed Refills Start Date End Date iron,carb/vit C/vit B12/folic (IRON 100 PLUS ORAL) Take by mouth. aspirin EC 81 mg Tablet, Delayed Release (E.C.) Take 81 mg by mouth daily. multivitamin (THERAGRAN) Tablet Take 1 tablet by mouth daily. documented as of this encounter Plan of Treatment Not on file documented as of this encounter Procedures Procedure Name Priority Date/Time Associated Diagnosis Comments US OB DETAILED MORPHOLOGY Routine 11/17/2021 4:19 PM EDT Elderly multigravida with antepartum condition or complication documented in this encounter Results * US OB Detailed Morphology (11/17/2021 4:19 PM EDT) Anatomical Region Laterality Modality Pelvis, Abdomen Ultrasound 11/17/2021 4:20 PM EDT Impressions 11/17/2021 4:26 PM EDT 2nd Trimester - Detailed Morphology - Summary Single intrauterine with a gestational age of 20w 0d based on Early Ultrasound ??(09/08/21) Composite age based on the current ultrasound alone is 19w 2d. Current growth parameters are consistent with prior dating indicating normal growth. Amniotic fluid volume is subjectively normal. Detailed anatomic evaluation was performed and no structural abnormalities are noted. Thank you for letting us participate in the care of this patient. If you are a health care provider and have any questions regarding this report, please contact the number above. For patients who have questions, please contact the health acute care nursing assistant that requested your imaging first. ?Maya Baker, Staff Physician Electronically Signed Final Report ?? 11/17/2021 04:25 pm Narrative 11/17/2021 4:26 PM EDT OBSTETRICS REPORT ?(Signed Final 11/17/2021 04:25 pm) PATIENT INFO: ID #: ? [id number] ?: ??[birth year] (36 yrs)(F) Name: ? CHAGO ARLENE ? Visit Date: 11/17/2021 04:20 pm PERFORMED BY: Performed By: ? Bull YO, ??Diana Attending: ?Samuel LLOYD, Maya Zuluaga Referred By: ?VIVI ALONZO Location: ? [place] SERVICE(S) PROVIDED: [facility] - Detailed Morphology - [id number] ? [id number] INDICATIONS: 20 weeks gestation of ?Z3A.20 AMA, pt had COVID at 6 weeks EVALUATION: Num Of Fetuses: ? 1 Heart Rate(bpm): ??140 Cardiac Activity: ? Observed, normal rhythm Presentation: ? Cephalic Placenta: ? Circumvallate w/succenturiate lobe P. Cord Insertion: ?Within Normal Limits Amniotic Fluid KRYSTA FV: ?subjectively normal --------- BIOMETRY: --------- BPD: ?41.5 ??mm ? G.Age: ?? 18w 4d OFD: ?61.2 ??mm HC: ?165.9 ??mm ? G.Age: ?? 19w 2d AC: ?141.2 ??mm ? G.Age: ?? 19w 3d FL: ? 32.1 ??mm ? G.Age: ?? 20w 0d HUM: ?32.8 ??mm ? G.Age: ?? 21w 0d CER: ?20.7 ??mm ? G.Age: ?? 19w 5d NFT: ?4.41 ??mm NB: ?6.2 ??mm LV: ?4.5 ??mm CM: ?5.0 ??mm CI: ?67.8 ??% ? 70 - 86 FL/HC: ? 19.3 ??% ? 16.8 - 19.8 HC/AC: ? 1.17 ?1.09 - 1.39 FL/BPD: ?77.3 ??% FL/AC: ? 22.7 ??% ? 20 - 24 Est. FW: ? 305 ??gm ?0 lb 11 oz OB HISTORY: : ?7 ? Term: ?? 4 ? SAB: ?? 2 Living: ? 4 GESTATIONAL AGE: U/S Today: ? 19w 2d ?SHAR: ?? 04/11/22 Best: ?20w 0d ?? Det. By: ??Early ?SHAR: ?? 04/06/22 ? Ultrasound ? (09/08/21) TARGETED ANATOMY: Central Nervous System Calvarium/Cranial V.: ??Within Normal Limits Intracranial Ibis: ? Within Normal Limits Cavum: ? Within Normal Limits Parenchyma: ?Within Normal Limits Lateral Ventricles: ?Within Normal Limits Choroid Plexus: ?Within Normal Limits Cereb./Vermis: ? Within Normal Limits Cisterna Magna: ?Within Normal Limits Midline Falx: ?Within Normal Limits Spine Cervical: ?Visualized Thoracic: ?Visualized Lumbar: ?Visualized Sacral: ?Visualized Shape/Curvature: ? Visualized Head/Neck Face: ?Within Normal Limits Lips: ?Within Normal Limits Neck: ?Within Normal Limits Nuchal Fold: ? Within Normal Limits Nasal Bone: ?Present Profile: ? Visualized Orbits/Eyes: ? Visualized Mandible: ?Visualized Maxilla: ? Visualized Thorax Thoracic Contour: ?Within Normal Limits Lungs: ? Visualized 4 Chamber View: ?Within Normal Limits Cardiac Activity: ?Normal Rhythm Rt Outflow Tract: ?Visualized Lt Outflow Tract: ?Visualized Aortic Arch: ? Visualized Ductal Arch: ? Visualized SVC: ? Visualized Cardiac Moore: ?Visualized Diaphragm: ? Visualized 3 Vessel View: ? Visualized IVC: ? Visualized Abdomen Ventral Wall: ?Visualized Cord Insertion: ?Visualized Situs: ? Normal Stomach: ? Visualized Liver: ? Visualized Lt Kidney: ? Visualized Rt Kidney: ? Visualized Bladder: ? Visualized Bowel: ? Visualized Extremities Lt Humerus: ?Within Nomal Limits Rt Humerus: ?Within Normal Limits Lt Forearm: ?Within Normal Limits Rt Forearm: ?Within Normal Limits Lt Hand: ? Within Normal Limits Rt Hand: ? Within Normal Limits Lt Femur: ?Within Normal Limits Rt Femur: ?Within Normal Limits Lt Lower Leg: ?Within Normal Limits Rt Lower Leg: ?Within Normal Limits Lt Foot: ? Visualized Rt Foot: ? Visualized Other Umbilical Cord: ?3 vessel cord Genitalia: ? Female CERVIX UTERUS ADNEXA: Right Ovary Size(cm) ? 3.0 ??x ?? 1.7 ?x ??1.3 ? Vol(ml): 3.5 Visualized Left Ovary Size(cm) ? 3.0 ??x ?? 1.8 ?x ??1.3 ? Vol(ml): 3.7 Visualized ------- MYOMAS: ------- Site ? L(cm) ? W(cm) ? D(cm) ? Location Anterior Left ?3.0 ? 2.5 ? 3.6 ? Intramural Lateral Blood Flow ?RI ? PI ? Comments Procedure Note Maya Baker MD - 11/17/2021 OBSTETRICS REPORT (Signed Final 11/17/2021 04:25 pm) PATIENT INFO: ID #: [id number] : [birth year] (36 yrs)(F) Name: CHAGO ARITA Visit Date: 11/17/2021 04:20 pm PERFORMED BY: Performed By: Diana Gottlieb RDMS Attending: Maya Baker MD Referred By: VIVI ALONZO Location: [place] SERVICE(S) PROVIDED: [facility] - Detailed Morphology - [id number] INDICATIONS: 20 weeks gestation of Z3A.20 AMA, pt had COVID at 6 weeks EVALUATION: Num Of Fetuses: 1 Heart Rate(bpm): 140 Cardiac Activity: Observed, normal rhythm Presentation: Cephalic Placenta: Circumvallate w/succenturiate lobe P. Cord Insertion: Within Normal Limits Amniotic Fluid KRYSTA FV: subjectively normal --------- BIOMETRY: --------- BPD: 41.5 mm G.Age: 18w 4d OFD: 61.2 mm HC: 165.9 mm G.Age: 19w 2d AC: 141.2 mm G.Age: 19w 3d FL: 32.1 mm G.Age: 20w 0d HUM: 32.8 mm G.Age: 21w 0d CER: 20.7 mm G.Age: 19w 5d NFT: 4.41 mm NB: 6.2 mm LV: 4.5 mm CM: 5.0 mm CI: 67.8 % 70 - 86 FL/HC: 19.3 % 16.8 - 19.8 HC/AC: 1.17 1.09 - 1.39 FL/BPD: 77.3 % FL/AC: 22.7 % 20 - 24 Est. FW: 305 gm 0 lb 11 oz OB HISTORY: : 7 Term: 4 SAB: 2 Livin GESTATIONAL AGE: U/S Today: 19w 2d SHAR: 04/11/22 Best: 20w 0d Det. By: Early SHAR: 04/06/22 Ultrasound (09/08/21) TARGETED ANATOMY: Central Nervous System Calvarium/Cranial V.: Within Normal Limits Intracranial Ibis: Within Normal Limits Cavum: Within Normal Limits Parenchyma: Within Normal Limits Lateral Ventricles: Within Normal Limits Choroid Plexus: Within Normal Limits Cereb./Vermis: Within Normal Limits Cisterna Magna: Within Normal Limits Midline Falx: Within Normal Limits Spine Cervical: Visualized Thoracic: Visualized Lumbar: Visualized Sacral: Visualized Shape/Curvature: Visualized Head/Neck Face: Within Normal Limits Lips: Within Normal Limits Neck: Within Normal Limits Nuchal Fold: Within Normal Limits Nasal Bone: Present Profile: Visualized Orbits/Eyes: Visualized Mandible: Visualized Maxilla: Visualized Thorax Thoracic Contour: Within Normal Limits Lungs: Visualized 4 Chamber View: Within Normal Limits Cardiac Activity: Normal Rhythm Rt Outflow Tract: Visualized Lt Outflow Tract: Visualized Aortic Arch: Visualized Ductal Arch: Visualized SVC: Visualized Cardiac Moore: Visualized Diaphragm: Visualized 3 Vessel View: Visualized IVC: Visualized Abdomen Ventral Wall: Visualized Cord Insertion: Visualized Situs: Normal Stomach: Visualized Liver: Visualized Lt Kidney: Visualized Rt Kidney: Visualized Bladder: Visualized Bowel: Visualized Extremities Lt Humerus: Within Nomal Limits Rt Humerus: Within Normal Limits Lt Forearm: Within Normal Limits Rt Forearm: Within Normal Limits Lt Hand: Within Normal Limits Rt Hand: Within Normal Limits Lt Femur: Within Normal Limits Rt Femur: Within Normal Limits Lt Lower Leg: Within Normal Limits Rt Lower Leg: Within Normal Limits Lt Foot: Visualized Rt Foot: Visualized Other Umbilical Cord: 3 vessel cord Genitalia: Female CERVIX UTERUS ADNEXA: Right Ovary Size(cm) 3.0 x 1.7 x 1.3 Vol(ml): 3.5 Visualized Left Ovary Size(cm) 3.0 x 1.8 x 1.3 Vol(ml): 3.7 Visualized ------- MYOMAS: ------- Site L(cm) W(cm) D(cm) Location Anterior Left 3.0 2.5 3.6 Intramural Lateral Blood Flow RI PI Comments IMPRESSION 2nd Trimester - Detailed Morphology - Summary Single intrauterine with a gestational age of 20w 0d based on Early Ultrasound (09/08/21) Composite age based on the current ultrasound alone is 19w 2d. Current growth parameters are consistent with prior dating indicating normal growth. Amniotic fluid volume is subjectively normal. Detailed anatomic evaluation was performed and no structural abnormalities are noted. Thank you for letting us participate in the care of this patient. If you are a health care provider and have any questions regarding this report, please contact the number above. For patients who have questions, please contact the health acute care nursing assistant that requested your imaging first. Maya Baker, Staff Physician Electronically Signed Final Report 11/17/2021 04:25 pm Vivi Alonzo CNM IMG US OB ORDERABLES documented in this encounter Visit Diagnoses Diagnosis Elderly multigravida with antepartum condition or complication documented in this encounter Care Teams Director Of Product Marketing Relationship Specialty Start Date End Date None None PCP - General 09/26/21 documented as of this encounter
--- OUTSIDE RECORDS SUMMARY | 2024-02-24 18:58 | XMS_ITS | Encounter Summary ---
Author Organization [facility] [place] [address] Care Team Providers Care President Name Role Phone Sunshine Mccall PRINCIPAL PROGRAMMER Primary Care Provider [phone] Reason for Referral * Consultation (Routine) - Closed Specialty Diagnoses / Procedures Referred By Lia trinh Referred To Contact Obstetrics and Gynecology Diagnoses Supervision of elderly multigravida in second trimester Vivi Alonzo CNM [address] [place] [address] [address] [place] [address] [facility] [place] [address] [place] [address] Referral ID Status Reason Start Date Expiration Date V isits Requested Visits Authorized [id number] Closed Consult, Test & Treat 09/25/2021 09/25/2022 6 6 Encounter Details Date Type Department Care Team (Late st Contact Info) Description 09/25/2021 [place] [id number] Vivi Alonzo CNM [address] [place] [address] [address] [place], [place] [id number] Supervision of elderly multigravida in second trimester Social History Tobacco Use Types Packs/Day Years Used Date Smoking Tobacco: Never Assessed Sex and Gender Information Value Date Recorded Sex Assigned at Not on file Gender Identity Not on file Sexual Orientation Not on file documented as of this encounter Plan of Treatment Scheduled Referrals Name Type Priority Associated Diagnoses Orde r Schedule Referral to Maternal Medicine Outpatient Referral Routine Supervision of elderly multigravida in second trimester Ordered: 09/25/2021 documented as of this encounter Visit Diagnoses Diagnosis Supervision of elderly multigravida in second trimester Supervision of high-risk of elderly multigravida documented in this encounter Care Teams President Relationship Specialty Start Date End Date Sunshine Mccall, KENZIE [address] [place] [address] PCP - General Family Medicine 09/25/21 09/25/21 documented as of this encounter
--- OUTSIDE RECORDS SUMMARY | 2024-02-24 18:58 | XMS_ITS | Encounter Summary ---
Author Organization [facility] Address [address] [place] [address] Care Team Providers Care Art Department Head Name Role Phone Willy Okeefe MD Primary Care Provider Un available Jamila Bartholomew NP Primary Care Provider [phone] Encounter Details Date Type Department Care Team (Late st Contact Info) Description 09/29/2021 Lab Requisition [facility] Pathology & Laboratory Medicine - [facility] [address] [place] [address] [address] [place], [place] [id number] Encounter for other general examination Social History Tobacco Use Types Packs/Day Years Used Date Smoking Tobacco: Never Assessed Sex and Gender Information Value Date Recorded Sex Assigned at Not on file Gender Identity Not on file Sexual Orientation Not on file documented as of this encounter Plan of Treatment Not on file documented as of this encounter Procedures Procedure Name Priority Date/Time Associated Diagnosis Comments PAP TEST Today 09/28/2021 3:35 EST Encounter for other general examination HPV DNA DETECTION WITH GENOTYPING, PCR Today 09/28/2021 3:35 EST Encounter for other general examination documented in this encounter Results * HUMAN PAPILLOMAVIRUS (HPV) DETECTION-HIGH RISK TYPES (09/28/2021 3:35 EST) HPV other High Risk types, PCR Negative Negative 10/05/2021 15:06 EST [facility] Comment:No E6 or E7 mRNA is detected from HPV types 16,18,31,33,35,39,45,51,52,56,58,59,66, and 68 by dean of graduate studies mediated amplification. Papanicolaou smear specimen (specimen) CERVIX UTERI STRUCTURE / Unknown 09/28/2021 3:35 EST 10/04/2021 9:46 EST Tonya Camacho [facility] MICROBIOLOGY - GENERAL ORDERABLES [facility] [address] [place] [address] * PAP TEST (09/28/2021 3:35 EST) Specimens A. Cervix and/or Endocervix , ThinPrep Imaging System with Manual Evaluation 10/05/2021 15:06 [facility] Specimen Adequacy Satisfactory for Evaluation - transformation zone component present 10/05/2021 15:06 [facility] General Categorization Negative for intraepithelial lesion or malignancy 10/05/2021 15:06 [facility] Attestation . 10/05/2021 15:06 [facility] at 1506 Clinical History SEE BELOW 10/06/19 22 15:06 [facility] HPV The result for the Human Papillomavirus (HPV) Detection-High Risk Types is Negative. No E6 or E7 mRNA is detected from HPV types 16,18,31,33,35,39 ,45,51,52,56,58,5 9,66, and 68 by dean of graduate studies mediated amplification.Smiley ting was performed on specimen [id number] and was resulted on 10/05/2021 1500 EST by VALDEMAR, LAB INSTRUMENT RESULTS IN 10/05/2021 15:06 [facility] Performing Lab [facility] 10/05/2021 15:06 [facility] Scanned Images 10/05/2021 15:06 [facility] Papanicolaou smear specimen (specimen) CERVIX UTERI STRUCTURE / Unknown 09/28/2021 3:35 EST 09/29/2021 9:50 EST Tonya Mary Janice [facility] PATHOLOGY [facility] [address] [place] [address] documented in this encounter Visit Diagnoses Diagnosis Encounter for other general examination documented in this encounter Care Teams Art Department Head Relationship Specialty Start Date End Date Willy Okeefe MD PCP - General 06/19/11 04/27/22 Jamila Bartholomew NP [address] [place] [address] PCP - General Family Medicine - Primary Care 04/28/22 documented as of this encounter
--- OUTSIDE RECORDS SUMMARY | 2024-02-24 18:58 | XMS_ITS | Encounter Summary ---
Author Organization [facility] Address [address] [place] [address] Care Team Providers Care Jewelry Department Supervisor Name Role Phone Willy Okeefe MD Primary Care Provider Un available Encounter Details Date Type Department Care Team (Late st Contact Info) Description 06/15/2011 Results Only [facility] Laboratory Services - [facility] ([facility] [address] [place], [place] [id number] Sunita Kirkland, YARED [address] [place] [address] Social History Tobacco Use Types Packs/Day Years [...] Diagnosis Comments PAP TEST- RESULT ONLY Routine 06/15/2011 0:00 EST documented in this encounter Results * PAP TEST- RESULT ONLY (06/15/2011 0:00 EST) Pathology Report: CYTOPATHOLOGY REPORT Reports generated via electronic interface contain original data; however they are lacking the format of the original report. Caution should be taken when reading/interpreti ng unformatted reports. Name: ? CHAGO JOHNSON ? Accession #: ? [id number] : ? 1985 (Age: 26) ??F ?Collect Date: ? 06/15/2011 Location: ? [facility] ? Receive Date: ? 06/20/2011 Provider: ?SUNITA KIRKLAND SWING GRINDER Copy to: ? Specimen/Source: ?Pap Test, Cervix/Endocervix, ThinPrep Imaging System with manual evaluation Last Menstrual Period: ? 06/02/2011 Treatment History: ? LEEP: age 14 yrs year 2000 Colposcopy: neg bx 2001 ? SPECIMEN ADEQUACY ? Satisfactory for Evaluation - transformation zone component present GENERAL CATEGORIZATION ? Negative for Intraepithelial Lesion or Malignancy ? Document reviewed and electronically signed by: ? GORDO WEBBER MD ? Report Date: ??06/26/2011 13:24 End of Report CARLI IRWIN 06/15/2011 06/20/2011 Sunita Kirkland SWING GRINDER PATHOLOGY ORDERABLES CARLI IRWIN [address] [place] [address] documented in this encounter Visit Diagnoses Not on filedocumented in this encounter Care Teams Jewelry Department Supervisor Relationship Specialty Start Date End Date Willy Okeefe MD PCP - General 06/19/11 04/27/22 documented as of this encounter
--- OUTSIDE RECORDS SUMMARY | 2024-02-24 18:58 | XMS_ITS | Encounter Summary ---
Author Organization [facility] Address [address] [place] [address] Care Team Providers Care Stations Superintendent Name Role Phone Willy Okeefe MD Primary Care Provider Un available Jamila Bartholomew NP Primary Care Provider [phone] Encounter Details Date Type Department Care Team (Late st Contact Info) Description 09/29/2021 Lab Requisition [facility] Pathology & Laboratory Medicine - [facility] [address] [place] [address] Outr Resulting Lab, Provider Social History Tobacco [...] Procedure Name Priority Date/Time Associated Diagnosis Comments RUBELLA IGG ANTIBODY Routine 09/28/2021 16:00 EST VARICELLA IGG ANTIBODY Routine 09/28/2021 16:00 EST documented in this encounter Results * VARICELLA IGG ANTIBODY (09/28/2021 16:00 EST) Varicella IgG Ab Positive See Note 10/01/2021 13:55 EST [facility] Comment:Presence of detectab le Varicella Zoster virus IgG antibodies. Blood VENOUS BLOOD / Unknown 09/28/2021 16:00 EST 09/29/2021 16:30 EST Provider Outr Resulting Lab IMMUNOLOGY A ND SEROLOGY ORDERABLES Performing Organization Address [facility] Co de Phone Number [facility] [address] [place] [address] * RUBELLA IGG ANTIBODY (09/28/2021 16:00 EST) Rubella IgG Ab Negative See Note 10/01/2021 13:57 EST [facility] Comment:Sample is considered negative for IgG antibodies to Rubella virus. A negative result presumes that immunity has not been acquired. If exposure to Rubella virus is suspected despite a negative finding, a second specimen should be collected and tested for Rubella IgG Ab one or two weeks later. Blood VENOUS BLOOD / Unknown 09/28/2021 16:00 EST 09/29/2021 16:30 EST Provider Outr Resulting Lab CHEMISTRY & BLOOD GAS ORDERABLES Performing Organization Address [facility] de Phone Number [facility] [address] [place] [address] documented in this encounter Visit Diagnoses Not on filedocumented in this encounter Care Teams Stations Superintendent Relationship Specialty Start Date End Date Willy Okeefe MD PCP - General 06/19/11 04/27/22 Jamila Bartholomew NP [facility] [place] [address] PCP - General Family Medicine - Primary Care 04/28/22 documented as of this encounter
--- OUTSIDE RECORDS SUMMARY | 2024-02-24 18:58 | XMS_ITS | Encounter Summary ---
Author Organization [facility] Address [address] [place] [address] Care Team Providers Care Geek Squad Autotech Name Role Phone Willy Okeefe MD Primary Care Provider Un available Jamila Bartholomew NP Primary Care Provider [phone] Encounter Details Date Type Department Care Team (Late st Contact Info) Description 09/29/2021 Lab Requisition [place] Pathology & Laboratory Medicine - [facility] [address] [place] [address] Outr Resulting Lab, Provider Social History Tobacco [...] Procedure Name Priority Date/Time Associated Diagnosis Comments CHLAMYDIA/N. GONORRHOEAE AMPLIFIED NUCLEIC ACID Routine 09/28/2021 15:20 EST documented in this encounter Results * CHLAMYDIA/N. GONORRHOEAE AMPLIFIED RNA (09/28/2021 15:20 EST) Neisseria gonorrhoeae Result Negative Negative 10/02/2021 14:13 EST [facility] Chlamydia trachomatis Result Negative Negative 10/02/2021 14:13 EST [facility] Swab ENTIRE ENDOCERVIX / Unknown 09/28/2021 15:20 EST 09/29/2021 19:03 EST Provider Outr Resulting Lab MICROBIOLOGY - GENERAL ORDERABLES [facility] [address] [place] [address] documented in this encounter Visit Diagnoses Not on filedocumented in this encounter Care Teams Geek Squad [employer] Relationship Specialty Start Date End Date Willy Okeefe MD PCP - General 06/19/11 04/27/22 Jamila Bartholomew INTERMEDIATE TEACHER [address] [place] [address] PCP - General Family Medicine - Primary Care 04/28/22 documented as of this encounter
--- OUTSIDE RECORDS SUMMARY | 2024-02-24 18:58 | XMS_ITS | Clinical Summary ---
Author Organization [facility] Address [facility] [place] [address] Care Team Providers Care Foundation Drill Operator Helper Name Role Phone None Primary Care Provider Unavailabl e Allergies No known active allergies Medications Medication Sig Dispensed Refills Start Date End Date Status iron,carb/vit C/vit B12/folic (IRON 100 PLUS ORAL) Take by mouth. Active aspirin EC 81 mg Tablet, Delayed Release (E.C.) Take 81 mg by mouth daily. Active multivitamin (THERAGRAN) Tablet Take 1 tablet by mouth daily. 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 Social History Tobacco Use Types Packs/Day Years Used Date Smoking Tobacco: Former Smokeless Tobacco: Never Alcohol Use Standard Drinks/Week Comments Not Currently 0 (1 standard drink = 0.6 oz pur e alcohol) Sex and Gender Information Value Date Recorded Sex Assigned at Not on file Gender Identity Not on file Sexual Orientation Not on file Last Filed Vital Signs Vital Sign Reading Time Taken Comments Blood Pressure 112/64 11/17/2021 4:39 PM EDT Pulse - - Temperature - - Respiratory Rate - - Oxygen Saturation - - Inhaled Oxygen Concentration - - Weight 72.8 kg (160 lb 9.6 oz) 11/17/2021 4:39 P M EDT Height - - Body Mass Index - - Plan of Treatment Health Maintenance Due Date Last Done Comments HIV screen 2001 Hepatitis C Screening 2001 Hepatitis B vaccine (0-59 yrs) (1) 2002 Tdap adult 2002 Tetanus vaccine 2002 HPV test 2013 PAP Smear 2013 Covid-19 Vaccine (1 - 2023-24 season) 2023 Breast Cancer Share Decision Needed 2023 Breast Cancer screening 2023 Influenza (Flu) vaccine (1 o f 1 - Influenza standard series) 03/29/2024 Care Teams Foundation Drill Operator Helper Relationship Specialty Start Date End Date None None PCP - General 09/26/21
--- OUTSIDE RECORDS SUMMARY | 2024-02-24 18:59 | XMS_ITS | Encounter Summary ---
Author Organization [facility] Address [address] [place] [address] Care Team Providers Care Coastal And Estuary Specialist Name Role Phone Unavailable Primary Care Provider Unavailabl e Encounter Details Date Type Department Care Team (Late st Contact Info) Description 09/26/2009 Results Only [facility] Laboratory Services - [facility] ([facility]) [address] [place] [address] Jazlyn Rivera, [facility] [address] [place] [address] [place] [phone] Social History Tobacco Use Types Packs/Day Years Used Date Smoking Tobacco: Never Assessed Sex and Gender Information Value Date Recorded Sex Assigned at Not on file Gender Identity Not on file Sexual Orientation Not on file documented as of this encounter Plan of Treatment Not on file documented as of this encounter Procedures Procedure Name Priority Date/Time Associated Diagnosis Comments CYTOPATHOLOGY Routine 09/26/2009 0:00 EST documented in this encounter Results * CYTOPATHOLOGY (09/26/2009 0:00 EST) Pathology Report: CYTOPATHOLOGY REPORT ? Reports generated via electronic interface contain original data; ? however they are lacking the format of the original report. ? Caution should be taken when reading/interpreti ng unformatted reports. ? Name: ? ARLENE, CHAGO L ? Accession #: ? [id number] ? : ? 1985 (Age: 24) ??F ?Collect Date: ? 09/26/2009 ? Location: ? [facility] ? Receive Date: ? 09/27/2009 ? Provider: ?JAZLYN REJI DI[facility] SOR[facility] ? Copy to: ? Specimen/Source: ?Pap Test, Cervix/Endocervix, ThinPrep Imaging System ? with manual evaluation ? Last Menstrual Period: ? Menstrual/Pregnanc y Status: ? Other: ? Additional clinical information: 1/12/10 unsatisfactory ? HPVA - HPV testing requested if ASC-US on the current ThinPrep Pap test. ? SPECIMEN ADEQUACY ? Satisfactory for Evaluation ? - transformation zone component present ? GENERAL CATEGORIZATION ? Negative for Intraepithelial Lesion or Malignancy ? Document reviewed and electronically signed by: ? Mica B. Azael, SCT(ASCP) ? Report Date: ??09/28/2009 14:16 ? End of Report ? CARLI IRWIN 09/26/2009 09/27/2009 Jazlyn Rivera DIAMOND SORTER PATHOLOGY ORDERABLES [facility] [address] [place] [address] documented in this encounter Visit Diagnoses Not on filedocumented in this encounter
--- OUTSIDE RECORDS SUMMARY | 2024-02-24 18:59 | XMS_ITS | Encounter Summary ---
Author Organization [facility] Address [address] [place] [address] Care Team Providers Care Licensing Representative Name Role Phone Unavailable Primary Care Provider Unavailabl e Encounter Details Date Type Department Care Team (Late st Contact Info) Description 05/28/2006 Results Only [facility] - [facility] [address] [place] [address] Unknown, Provider, Social History Tobacco Use Types Packs/Day Years Used Date Smoking Tobacco: Never Assessed Sex and Gender Information Value Date Recorded Sex Assigned at Not on file Gender Identity Not on file Sexual Orientation Not on file documented as of this encounter Plan of Treatment Not on file documented as of this encounter Procedures Procedure Name Priority Date/Time Associated Diagnosis Comments N. GONORRHOEAE AMPLIFIED PROBE Routine 05/28/2006 16:54 EST ZZCHLAMYDIA TRACHOMATIS AMPLIFIED PROBE Routine 05/28/2006 16:54 EST CYTOPATHOLOGY Routine 05/28/2006 0:00 EST documented in this encounter Results * N. GONORRHOEAE AMPLIFIED PROBE (05/28/2006 16:54 EST) Result No Neisseria gonorrhoeae DNA detected by table inspector mediated amplification. [facility] Report Status Final [id number] [facility] Specimen Description Cervix [facility] 05/28/2006 16:5 4 EST 05/28/2006 22:35 EST Provider Unknown MICROBIOLOGY - GENER AL ORDERABLES Performing Organization Address [facility] de Phone Number [facility] [address] [place] [address] * CHLAMYDIA TRACHOMATIS AMPLIFIED PROBE (05/28/2006 16:54 EST) Specimen Description Cervix [facility] Result No Chlamydia trachomatis DNA detected by table inspector mediated amplification. [facility] Report Status Final [id number] [facility] 05/28/2006 16:5 4 EST 05/28/2006 22:35 EST Provider Unknown MICROBIOLOGY - GENER AL ORDERABLES Performing Organization Address [facility] de Phone Number [facility] [address] [place] [address] * CYTOPATHOLOGY (05/28/2006 0:00 EST) Pathology Report: CYTOPATHOLOGY REPORT Reports generated via electronic interface contain original data; however they are lacking the format of the original report. Caution should be taken when reading/interpreti ng unformatted reports. Name: ? CHAGO ARITA ? Accession #: ? [id number] : ? 1985 (Age: 21) ??F ?Collect Date: ? 05/28/2006 Location: ? [facility] ? Receive Date: ? 05/29/2006 Provider: ?INEZ LARIOS [facility] Copy to: ? Specimen/Source: ?ThinPrep Pap Test, Cervix/Endocervix, processed on [employer]ixers ThinPrep Imaging System, with manual evaluation Last Menstrual Period: ? 05/22/06 Menstrual/Pregnanc y Status: ? Post Previous Gynecologic Pathology: ? LSIL: 11/27 HSIL: Treatment History: ? LEEP: 1999 Other: ? HPVA - HPV testing requested if ASC-US on the current ThinPrep Pap test. ? SPECIMEN ADEQUACY ? Satisfactory for Evaluation - transformation zone component present GENERAL CATEGORIZATION ? Negative for Intraepithelial Lesion or Malignancy INTERPRETATION ? Reactive cellular changes associated with inflammation present (includes repair). ? Document reviewed and electronically signed by: ? Kerri Palmer MD ? Report Date: ??06/10/2006 18:56 End of Report CALRI IRWIN 05/28/2006 05/29/2006 Inez Larios CNM PATHOLOGY ORDERABLES [facility] [address] [place] [address] documented in this encounter Visit Diagnoses Not on filedocumented in this encounter
--- OUTSIDE RECORDS SUMMARY | 2024-02-24 18:59 | XMS_ITS | Encounter Summary ---
Author Organization [facility] Address [address] [place] [address] Care Team Providers Care Fly Winder Name Role Phone Unavailable Primary Care Provider Unavailabl e Encounter Details Date Type Department Care Team (Late st Contact Info) Description 04/22/2000 13:16 EDT Hospital Encounter [facility] - Other [address] [place] [address] Mukesh Rojas MD Unknown, Provider, Social History Tobacco Use Types [...] Priority Date/Time Associated Diagnosis Comments CYTOPATHOLOGY Routine 04/22/2000 0:00 EDT documented in this encounter Results * CYTOPATHOLOGY (04/22/2000 0:00 EDT) Pathology Report: CYTOPATHOLOGY REPORT Reports generated via electronic interface contain original data; however they are lacking the format of the original report. Caution should be taken when reading/interpreti ng unformatted reports. Name: ? CHAGO ARITA ? Accession #: ? [id number] : ? 1985 (Age: 14) ??F ?Collect Date: ? 04/22/2000 Location: ? [facility] ? Receive Date: ? 04/24/2000 Provider: ?MUKESH ROJAS MD Copy to: ? Specimen/Source: ?ThinPrep Pap Test, Cervix/Endocervix Last Menstrual Period: ? SPECIMEN ADEQUACY ? Satisfactory for evaluation. GENERAL CATEGORIZATION ? Within Normal Limits ? Document reviewed and electronically signed by: ? USHA Alcala(ASCP) ? Report Date: ??04/29/2000 13:18 End of Report CARLI IRWIN 04/22/2000 04/24/2000 Mukesh Rojas MD PATHOLOGY ORDERABLES [facility] [address] [place] [address] documented in this encounter Visit Diagnoses Not on filedocumented in this encounter
--- OUTSIDE RECORDS SUMMARY | 2024-02-24 18:59 | XMS_ITS | Encounter Summary ---
Author Organization [facility] Address [address] [place] [address] Care Team Providers Care Muck Miner Name Role Phone Unavailable Primary Care Provider Unavailabl e Encounter Details Date Type Department Care Team (Late st Contact Info) Description 05/07/[address] [facility] - [facility] [address] [place] [address] Unknown, Provider, Social History Tobacco Use Types [...] Priority Date/Time Associated Diagnosis Comments RUBELLA IGG AB Routine 05/07/2005 16:26 EDT HEPATITIS B SURFACE ANTIGEN Routine 05/07/2005 16:26 EDT SYPHILIS SERO (RPR) Routine 05/07/2005 1 6:26 EDT documented in this encounter Results * RUBELLA IGG AB (05/07/2005 16:26 EDT) Rubella IgG Scr Antibody detected CARLI IRWIN 05/07/2005 16:2 6 EDT 05/07/2005 22:35 EDT Provider Unknown HISTORICAL LAB FOR S Q LOAD Performing Organization Address [facility]/ZIP Co de Phone Number [facility] [address] [place] [address] * SYPHILIS SERO (RPR) (05/07/2005 16:26 EDT) Syphilis Sero (RPR) NONREACT. NR Dils [facility] 05/07/2005 16:2 6 EDT 05/07/2005 22:35 EDT Provider Unknown IMMUNOLOGY AND SEROL OGY ORDERABLES Performing Organization Address [facility] de Phone Number [facility] [address] [place] [address] * HEPATITIS B SURFACE ANTIGEN (05/07/2005 16:26 EDT) Hepatitis B Surface Ag Neg [facility] 05/07/2005 16:2 6 EDT 05/07/2005 22:35 EDT Provider Unknown CHEMISTRY & BLOOD GA S ORDERABLES Performing Organization Address [facility] Co de Phone Number [facility] [address] [place] [address] documented in this encounter Visit Diagnoses Not on filedocumented in this encounter
--- OUTSIDE RECORDS SUMMARY | 2024-02-24 18:59 | XMS_ITS | Encounter Summary ---
Author Organization [facility] Address [address] [place] [address] Care Team Providers Care Compounding Technician Name Role Phone Unavailable Primary Care Provider Unavailabl e Encounter Details Date Type Department Care Team (Late st Contact Info) Description 12/19/2001 14:26 EDT Hospital Encounter [facility] - Other [address] [place] [address] Josie Schilling, [address] [place] [address] Unknown, Provider, Social History Tobacco Use Types [...] Priority Date/Time Associated Diagnosis Comments CYTOPATHOLOGY Routine 12/19/2001 0:00 EDT documented in this encounter Results * CYTOPATHOLOGY (12/19/2001 0:00 EDT) Pathology Report: CYTOPATHOLOGY REPORT Reports generated via electronic interface contain original data; however they are lacking the format of the original report. Caution should be taken when reading/interpreti ng unformatted reports. Name: ? CHAGO JACOBS ? Accession #: ? [id number] : ? 1985 (Age: 16) ??F ?Collect Date: ? 12/19/2001 Location: ? [facility] ? Receive Date: ? 12/24/2001 Provider: ?JOSIE ARGUELLOM Copy to: ? Specimen/Source: ?ThinPrep Pap Test, Cervix/Endocervix Last Menstrual Period: ? SPECIMEN ADEQUACY ? Satisfactory for Evaluation - transformation zone component present GENERAL CATEGORIZATION ? Epithelial Cell Abnormality INTERPRETATION ? Squamous Cell Abnormality - Low grade squamous intraepithelial lesion (LSIL). EDUCATIONAL NOTES/RECOMMENDATI ONS ? [facility] recommends following the 2001 Consensus Guidelines for the Management of Women with Cervical Cytological Abnormalities (IBRAHIMA,2002;287:212 0-9). Management algorithms have been distributed by [facility] and are available online at www.[email or web address]. ? Document reviewed and electronically signed by: ? ELIZA WEST MD ? Report Date: ??12/26/2001 09:58 End of Report CARLI IRWIN 12/19/2001 12/24/2001 Josie Schilling CNM PATHOLOGY ORDERABLES [facility] [address] [place] [address] documented in this encounter Visit Diagnoses Not on filedocumented in this encounter
--- OUTSIDE RECORDS SUMMARY | 2024-02-24 18:59 | XMS_ITS | Encounter Summary ---
Author Organization [facility] Address [address] [place] [address] Care Team Providers Care Mechanical Sound Technician Name Role Phone Unavailable Primary Care Provider Unavailabl e Encounter Details Date Type Department Care Team (Late st Contact Info) Description 08/10/2006 Results Only [facility] - Maple conversion [address] [place] [address] Unknown, Provider, Social History Tobacco Use Types Packs/Day Years Used Date Smoking Tobacco: Never Assessed Sex and Gender Information Value Date Recorded Sex Assigned at Not on file Gender Identity Not on file Sexual Orientation Not on file documented as of this encounter Plan of Treatment Not on file documented as of this encounter Procedures Procedure Name Priority Date/Time Associated Diagnosis Comments HEP A,B,C PROFILE Routine 08/10/2006 13: 19 EST HIV 1/2 ANTIGEN AND ANTIBODY, 4TH GENERATION Routine 08/10/2006 13:19 EST N. GONORRHOEAE AMPLIFIED PROBE Routine 08/10/2006 13:18 EST ZZCHLAMYDIA TRACHOMATIS AMPLIFIED PROBE Routine 08/10/2006 13:18 EST documented in this encounter Results * HEPATITIS A,B,C PROFILE- [facility] USE ONLY (08/10/2006 13:19 EST) Hepatitis B Surface Ag Neg [facility] Hepatitis B Surface Ab Neg [facility] Hep B Core Ab Neg [facility] Hep A Antibody Neg [facility] Hepatitis C Ab Neg [facility] 08/10/2006 13:1 9 EST 08/11/2006 16:22 EST Provider Unknown CHEMISTRY & BLOOD GA S ORDERABLES Performing Organization Address [facility] de Phone Number [facility] [address] [place] [address] * HIV ANTIBODY (DOMENIC) (08/10/2006 13:19 EST) HIV 1/2 Antibody NONREACT. NR [facility] 08/10/2006 13:1 9 EST 08/11/2006 16:22 EST Provider Unknown IMMUNOLOGY AND SEROL OGY ORDERABLES Performing Organization Address [facility] Phone Number [facility] [address] [place] [address] * N. GONORRHOEAE AMPLIFIED PROBE (08/10/2006 13:18 EST) Result No Neisseria gonorrhoeae DNA detected by business data analyst mediated amplification. [facility] Report Status Final [id number] [facility] Specimen Description Urine [facility] 08/10/2006 13:1 8 EST 08/11/2006 16:22 EST Provider Unknown MICROBIOLOGY - GENER AL ORDERABLES Performing Organization Address [facility] de Phone Number [facility] [address] [place] [address] * CHLAMYDIA TRACHOMATIS AMPLIFIED PROBE (08/10/2006 13:18 EST) Specimen Description Urine [facility] Result No Chlamydia trachomatis DNA detected by business data analyst mediated amplification. [facility] Report Status Final [id number] [facility] 08/10/2006 13:1 8 EST 08/11/2006 16:22 EST Provider Unknown MICROBIOLOGY - GENER AL ORDERABLES [facility] [address] [place] [address] documented in this encounter Visit Diagnoses Not on filedocumented in this encounter
--- OUTSIDE RECORDS SUMMARY | 2024-02-24 18:59 | XMS_ITS | Encounter Summary ---
Author Organization [facility] Address [address] [place] [address] Care Team Providers Care Industrial Truck Mechanic Name Role Phone Unavailable Primary Care Provider Unavailabl e Encounter Details Date Type Department Care Team (Latest Contact Info) Description 12/02/2000 19:07 EDT Hospital Encounter [facility] - Other [address] [place] [address] Mukesh Rojas MD Unknown, Provider, Discharge Disposition: Auto Discharge Social History Tobacco Use Types Packs/Day Years Used Date Smoking Tobacco: Never Assessed Sex and Gender Information Value Date Recorded Sex Assigned at Not on file Gender Identity Not on file Sexual Orientation Not on file documented as of this encounter Discharge Disposition Disposition Code Departure Means Destination Auto Discharge documented in this encounter Plan of Treatment Not on file documented as of this encounter Procedures Procedure Name Priority Date/Time Associated Diagnosis Comments CYTOPATHOLOGY Routine 12/02/2000 0:00 EDT documented in this encounter Results * CYTOPATHOLOGY (12/02/2000 0:00 EDT) Pathology Report: CYTOPATHOLOGY REPORT Reports generated via electronic interface contain original data; however they are lacking the format of the original report. Caution should be taken when reading/interpreti ng unformatted reports. Name: ? CHAGO ARITA ? Accession #: ? [id number] : ? 1985 (Age: 15) ??F ?Collect Date: ? 12/02/2000 Location: ? [facility] ? Receive Date: ? 12/03/2000 Provider: ?MUKESH ROJAS MD Copy to: ? Specimen/Source: ?ThinPrep Pap Test, Cervix/Endocervix Last Menstrual Period: ? Previous Gynecologic Pathology: ? Yes Treatment History: ? LEEP ? SPECIMEN ADEQUACY ? Satisfactory for evaluation. GENERAL CATEGORIZATION ? Within Normal Limits ? Document reviewed and electronically signed by: ? DAMIÁN Finch(ASCP) ? Report Date: ??12/05/2000 10:06 End of Report [facility] 12/02/2000 12/03/2000 Mukesh Rojas MD PATHOLOGY ORDERABLES [facility] [address] [place] [address] documented in this encounter Visit Diagnoses Not on filedocumented in this encounter
--- OUTSIDE RECORDS SUMMARY | 2024-02-24 18:59 | XMS_ITS | Encounter Summary ---
Author Organization [facility] Address [address] [place] [address] Care Team Providers Care Loop Puller Name Role Phone Unavailable Primary Care Provider Unavailabl e Encounter Details Date Type Department Care Team (Late st Contact Info) Description 01/14/2007 Office Visit [facility] - Maple conversion [address] [place] [address] Raj Coley MD [address] [facility], [address] [place] [id number] Social History Tobacco Use Types Packs/Day Years Used Date Smoking Tobacco: Never Assessed Sex and Gender Information Value Date Recorded Sex Assigned at Not on file Gender Identity Not on file Sexual Orientation Not on file documented as of this encounter Progress Notes * Raj Coley MD - 09/18/2009 0238 EST Department - Physician Summary Registration Date/Time: 01/14/2007 9:06 Time Seen: 09 : 25; initial patient contact. Arrived- By private vehicle. Historian- patient. HISTORY OF PRESENT ILLNESS Chief Complaint- Injury to CHEST. Location of injuries- chest, right elbow and right knee and left knee. The accident occurred just prior to arrival. Fell 5-6 feet and landed on a hard surface. Occurred at work. The patient complains of moderate pain. No blow to the head, neck pain or loss of consciousness. Not dazed. REVIEW OF SYSTEMS The patient has had difficulty breathing (difficult to take deep inspiration). No numbness, weakness, headache or chest pain. Chest wall abrasion, L knee abrasion. All systems otherwise negative, except as recorded above. PAST HISTORY Negative. Medications: None. Allergies: No known drug allergies. SOCIAL HISTORY Smoker: less than 1 pack per day. Occasional alcohol use. No drug use. ADDITIONAL NOTES The nursing notes have been reviewed. PHYSICAL EXAM Appearance: Alert. Oriented X3. Patient in mild distress. Distress appears due to pain. Vital Signs: Have been reviewed. Head: Head non-tender. No swelling of head. Eyes: Pupils equal, round and reactiveto light. EOM intact. ENT: No dental injury. Pharynx normal. Neck: Painless ROM. Non-tender. CVS: Heart sounds normal. Pulses normal. Respiratory: Chest wall injury: moderate tenderness and large abrasion located in the right and lateral chest. No deformity. Breath sounds normal. Abdomen: Abdomen soft and nontender. No organomegaly. Back: No back tenderness. ROM normal. Skin: Skin intact. Normal skin color and turgor. Skin warm and dry. Extremities: Normal inspection. Right forearm: small abrasion. Neurovascular intact distally. Pelvis stable. Right knee: small abrasion. Neurovascular intact distally. Left knee: small abrasion. Neurovascular intact distally. No lower extremity edema. Full ROM. Neuro: Oriented X 3. No motor deficit. No sensory deficit. Reflexes normal. LABS, X-RAYS, AND EKG Chest X-ray: No acute disease. Normal lung markings present. Normal heart size. Mediastinum normal.Great vessels normal. Soft tissue normal. No infiltrate. No fracture. No bony lesion present. No pneumothorax, pleural effusion or pulmonary contusion. Views: PA and lateral. The X-rays were independently viewed by me. Prior films were not available for comparison. PROGRESS AND PROCEDURES Patient/family counseled. Disposition: Discharged home. Condition: good andstable. Discharged home in good condition and stable condition. CLINICAL IMPRESSION Chest injury: contusion to chest wall. INSTRUCTIONS 1. Symptom limited activity. 2. Take Ibuprofen 600mg by mouth every 6 hours for pain. 3. You may also take Tylenol 650mg by mouth every 6 hours for pain if you chose not to take the narcotic pain medication.. Warnings: GENERAL WARNINGS: Return or contact your physician immediately if your condition worsens or changesunexpectedly, if not improving as expected, or if other problems arise. Specifically return if breathing difficulty worsens. Prescription Medications: Vicodin 5 mg: take 1 to 2 orally every 6hours as needed for pain. Dispense fifteen (15). No refills. Generic substitute OK. Follow-up: Follow up with your doctor in about one week. Call for an appointment. (Electronically signed by Raj Coley M.D. 01/14/2007 10:39) Department - Nursing Summary Registration Date/Time: 01/14/2007 9:06 TRIAGE Initial Assessment Triage time 09:07 Jan 14 2007. --906 Guerda Dupont R.N. Acuity: LEVEL 4. BP: 118 / 69. HR: 86. RR: 14. Temp: 36.6 C (tympanic). O2 saturation: 100% room air. Alert. No acute distress. (Abrasion right anterior chest and left knee). --909 Guerda Dupont R.N.. Medications None. --909 Guerda Dupont R.N.. Allergies No known drug allergies. --909 Klaus Gloria. History Chief Complaint: FALL. Location of injuries- chest. This occurred just prior to arrival. Pain level now: 7/10. (Fell off staging, approximately 6 feet,onto a bucket. Complains of pain right anterior chest.). No loss of consciousness. PAST HX: Negative. Tetanus status: unknown. SOCIAL HX: Cigarette smoker: less than 1 pack per day. Occasional alcohol use. No report of abuse. Arrived by private vehicle and walking. Historian: patient. --909 Guerda Dupont R.N.. NURSING PROGRESS NOTES Patient identifiers checked. Extremity elevated. Patientgowned. Call light placed in reach. Side rails up. Bed placed in lowest position. Brakes of bed on. Patient ready for evaluation. --911 Lida ShahNGianniA. IBUPROFEN 600 mg PO. . --951 Angélica Foster R.N. Reassessment after medication administered. Patient reports current pain level as 6/10. --1028 Carlota Zimmer L.P.N.. DISPOSITION / DISCHARGE Patient reports pain level on departureas 01/05. Discharge instructions reviewed with the patient. Reviewed medication. Patient verbalized understanding. Written instructions provided in Romansh. The patient was discharged home. The patient left the Emergency Department ambulatory and via private vehicle. --1034 Carlota Zimmer L.P.N.. Win Gunn R.N., R.N., L.P.N. Locked/Released at 01/14/2007 10:34 by Carlota Zimmer L.P.N. documented in this encounter Plan of Treatment Not on file documented as of this encounter Visit Diagnoses Not on filedocumented in this encounter
--- OUTSIDE RECORDS SUMMARY | 2024-02-24 18:59 | XMS_ITS | Encounter Summary ---
Author Organization [facility] Address [address] [place] [address] Care Team Providers Care Brick Pitcher Name Role Phone Unavailable Primary Care Provider Unavailabl e Encounter Details Date Type Department Care Team (Late st Contact Info) Description 05/29/2005 Results Only [facility] - Maple conversion [address] [place] [address] Unknown, Provider, Social History Tobacco Use Types Packs/Day Years Used Date Smoking Tobacco: Never Assessed Sex and Gender Information Value Date Recorded Sex Assigned at Not on file Gender Identity Not on file Sexual Orientation Not on file documented as of this encounter Plan of Treatment Not on file documented as of this encounter Procedures Procedure Name Priority Date/Time Associated Diagnosis Comments HSV (ONLY) CULTURE Routine 05/29/2005 17 :17 EST documented in this encounter Results * HSV (ONLY) CULTURE (05/29/2005 17:17 EST) Specimen Description Genital [facility] Result No herpes simplex recovered [facility] Report Status Final [id number] [facility] 05/29/2005 17:1 7 EST 05/30/2005 21:29 EST Provider Unknown MICROBIOLOGY - GENER AL ORDERABLES [facility] [address] [place] [address] documented in this encounter Visit Diagnoses Not on filedocumented in this encounter
--- OUTSIDE RECORDS SUMMARY | 2024-02-24 18:59 | XMS_ITS | Encounter Summary ---
Author Organization [facility] Address [address] [place] [address] Care Team Providers Care Desulfurizer Hand Name Role Phone Unavailable Primary Care Provider Unavailabl e Encounter Details Date Type Department Care Team (Late st Contact Info) Description 08/27/2001 16:14 EST Hospital Encounter [facility] - Other [address] [place] [address] Josie Espinal, [address] [place] [address] Unknown, Provider, Social History Tobacco Use Types [...] Priority Date/Time Associated Diagnosis Comments CYTOPATHOLOGY Routine 08/27/2001 0:00 EST documented in this encounter Results * CYTOPATHOLOGY (08/27/2001 0:00 EST) Pathology Report: CYTOPATHOLOGY REPORT Reports generated via electronic interface contain original data; however they are lacking the format of the original report. Caution should be taken when reading/interpreti ng unformatted reports. Name: ? ARLENE, CHAGO L ? Accession #: ? [id number] : ? 1985 (Age: 16) ??F ?Collect Date: ? 08/27/2001 Location: ? [facility] ? Receive Date: ? 08/29/2001 Provider: ?JOSIE ESPINAL CNM Copy to: ? Specimen/Source: ?ThinPrep Pap Test, Cervix/Endocervix Last Menstrual Period: ? Menstrual/Pregnanc y Status: ? SPECIMEN ADEQUACY ? Satisfactory for Evaluation - transformation zone component present GENERAL CATEGORIZATION ? Negative for Intraepithelial Lesion or Malignancy INTERPRETATION ? Reactive cellular changes associated with inflammation present (includes repair). Cellular changes associated with Herpes Simplex Virus present. ? Document reviewed and electronically signed by: ? Sunita Ames MD ? Report Date: ??09/05/2001 19:03 End of Report [facility] 08/27/2001 08/29/2001 Josie Shakir GALICIA PATHOLOGY ORDERABLES [facility] [address] [place] [address] documented in this encounter Visit Diagnoses Not on filedocumented in this encounter
--- OUTSIDE RECORDS SUMMARY | 2024-02-24 18:59 | XMS_ITS | Encounter Summary ---
Author Organization [facility] Address [address] [place] [address] Care Team Providers Care Watch Crystal Edge Grinder Name Role Phone Unavailable Primary Care Provider Unavailabl e Encounter Details Date Type Department Care Team (Late st Contact Info) Description 07/18/2000 13:12 EST Hospital Encounter [facility] - Other [address] [place] [address] Willy Nguyen MD [address] [facility] [address] [place] [address] Unknown, Provider, Social History Tobacco Use Types [...] Priority Date/Time Associated Diagnosis Comments CYTOPATHOLOGY Routine 07/18/2000 0:00 EST documented in this encounter Results * CYTOPATHOLOGY (07/18/2000 0:00 EST) Pathology Report: CYTOPATHOLOGY REPORT Reports generated via electronic interface contain original data; however they are lacking the format of the original report. Caution should be taken when reading/interpreti ng unformatted reports. Name: ? CHAGO ARITA Odilon ? Accession #: ? [id number] : ? 1985 (Age: 15) ??F ?Collect Date: ? 07/18/2000 Location: ? [facility] ? Receive Date: ? 07/19/2000 Provider: ?MUKESH BALBUENA MD Copy to: ? Specimen/Source: ?ThinPrep Pap Test, Cervix/Endocervix Last Menstrual Period: ? SPECIMEN ADEQUACY ? Satisfactory for evaluation. GENERAL CATEGORIZATION ? Within Normal Limits ? Document reviewed and electronically signed by: ? Tracey Clark, SCT(ASCP) ? Report Date: ??07/25/2000 08:45 End of Report [facility] 07/18/2000 07/19/2000 Mukesh Balbuena MD PATHOLOGY ORDERABLES Performing Organization Address City/State/[facility] Co de Phone Number [facility] [address] [place] [address] documented in this encounter Visit Diagnoses Not on filedocumented in this encounter
--- OUTSIDE RECORDS SUMMARY | 2024-02-24 18:59 | XMS_ITS | Encounter Summary ---
Author Organization [facility] Address [address] [place] [address] Care Team Providers Care Cushion Builder Name Role Phone Unavailable Primary Care Provider Unavailabl e Encounter Details Date Type Department Care Team (Late st Contact Info) Description 11/15/2005 Results Only [facility] - Maple conversion [address] [place] [address] Unknown, Provider, Social History Tobacco Use Types Packs/Day Years Used Date Smoking Tobacco: Never Assessed Sex and Gender Information Value Date Recorded Sex Assigned at Not on file Gender Identity Not on file Sexual Orientation Not on file documented as of this encounter Plan of Treatment Not on file documented as of this encounter Procedures Procedure Name Priority Date/Time Associated Diagnosis Comments FIBRONECTIN Routine 11/15/2005 13: 28 EDT documented in this encounter Results * FIBRONECTIN (11/15/2005 13:28 EDT) Fibronectin Neg [facility] Appearance, swab HAZY AND COLORLESS [facility] 11/15/2005 13:2 8 EDT 11/15/2005 21:15 EDT Provider Unknown CHEMISTRY & BLOOD GA S ORDERABLES [facility] [address] [place] [address] documented in this encounter Visit Diagnoses Not on filedocumented in this encounter
--- OUTSIDE RECORDS SUMMARY | 2024-02-24 18:59 | XMS_ITS | Encounter Summary ---
Author Organization [facility] Address [address] [place] [address] Care Team Providers Care Cutter Grinder Name Role Phone Unavailable Primary Care Provider Unavailabl e Encounter Details Date Type Department Care Team (Late st Contact Info) Description 05/22/2004 Results Only [facility] - Maple conversion [address] [place] [address] Unknown, Provider, Social History Tobacco Use Types [...] Associated Diagnosis Comments RUBELLA IGG AB Routine 05/22/2004 15:16 EDT HEPATITIS B SURFACE ANTIGEN Routine 05/22/2004 15:16 EDT SYPHILIS SERO (RPR) Routine 05/22/2004 1 5:16 EDT documented in this encounter Results * RUBELLA IGG AB (05/22/2004 15:16 EDT) Rubella IgG Scr Antibody detected [facility] 05/22/2004 15:1 6 EDT 05/22/2004 21:09 EDT Provider Unknown HISTORICAL LAB FOR S Q LOAD Performing Organization Address [facility]/ZIP Co de Phone Number [facility] [address] [place] [address] * SYPHILIS SERO (RPR) (05/22/2004 15:16 EDT) Syphilis Sero (RPR) NONREACT. NR Dils [facility] 05/22/2004 15:1 6 EDT 05/22/2004 21:09 EDT Provider Unknown IMMUNOLOGY AND SEROL OGY ORDERABLES Performing Organization Address [facility] de Phone Number [facility] [address] [place] [address] * HEPATITIS B SURFACE ANTIGEN (05/22/2004 15:16 EDT) Hepatitis B Surface Ag Neg [facility] 05/22/2004 15:1 6 EDT 05/22/2004 21:09 EDT Provider Unknown CHEMISTRY & BLOOD GA S ORDERABLES Performing Organization Address [facility] Co de Phone Number [facility] [address] [place] [address] documented in this encounter Visit Diagnoses Not on filedocumented in this encounter
--- OUTSIDE RECORDS SUMMARY | 2024-02-24 18:59 | XMS_ITS | Encounter Summary ---
Author Organization [facility] Address [address] [place] [address] Care Team Providers Care Operator Assistant I Cementing Name Role Phone Unavailable Primary Care Provider Unavailabl e Encounter Details Date Type Department Care Team (Late st Contact Info) Description 09/06/[address] [facility] - Maple conversion [address] [place] [address] Unknown, Provider, Social History Tobacco Use Types [...] Diagnosis Comments N. GONORRHOEAE AMPLIFIED PROBE Routine 09/06/2004 18:44 EST ZZCHLAMYDIA TRACHOMATIS AMPLIFIED PROBE Routine 09/06/2004 18:44 EST CYTOPATHOLOGY Routine 09/06/2004 0:00 EST documented in this encounter Results * N. GONORRHOEAE AMPLIFIED PROBE (09/06/2004 18:44 EST) Result No Neisseria gonorrhoeae DNA detected by warehouse order puller mediated amplification. [facility] Report Status Final [id number] [facility] Specimen Description Cervix [facility] 09/06/2004 18:4 4 EST 09/07/2004 21:25 EST Provider Unknown MICROBIOLOGY - GENER AL ORDERABLES Performing Organization Address [facility] de Phone Number [facility] [address] [place] [address] * CHLAMYDIA TRACHOMATIS AMPLIFIED PROBE (09/06/2004 18:44 EST) Specimen Description Cervix [facility] Result No Chlamydia trachomatis DNA detected by warehouse order puller mediated amplification. [facility] Report Status Final [id number] [facility] 09/06/2004 18:4 4 EST 09/07/2004 21:25 EST Provider Unknown MICROBIOLOGY - GENER AL ORDERABLES Performing Organization Address [facility] de Phone Number [facility] [address] [place] [address] * CYTOPATHOLOGY (09/06/2004 0:00 EST) Pathology Report: CYTOPATHOLOGY REPORT Reports generated via electronic interface contain original data; however they are lacking the format of the original report. Caution should be taken when reading/interpreti ng unformatted reports. Name: ? CHAGO ARITA ? Accession #: ? [id number] : ? 1985 (Age: 19) ??F ?Collect Date: ? 09/06/2004 Location: ? [facility] ? Receive Date: ? 09/08/2004 Provider: ?INEZ ARGUELLO Copy to: ? Specimen/Source: ?ThinPrep Pap Test, Cervix/Endocervix Last Menstrual Period: ? 8/25/04 Menstrual/Pregnanc y Status: ? Treatment History: ? LEEP: 2000 Other: ? HPVA - HPV testing requested if ASC-US on the current ThinPrep Pap test. ? SPECIMEN ADEQUACY ? Satisfactory for Evaluation - transformation zone component absent GENERAL CATEGORIZATION ? Negative for Intraepithelial Lesion or Malignancy ? Document reviewed and electronically signed by: ? Gina Pagan CT(ASCP) ? Report Date: ??09/14/2004 13:27 End of Report [facility] 09/06/2004 09/08/2004 Inez Montilla CNM PATHOLOGY ORDERABLES [facility] [address] [place] [address] documented in this encounter Visit Diagnoses Not on filedocumented in this encounter
--- OUTSIDE RECORDS SUMMARY | 2024-02-24 18:59 | XMS_ITS | Encounter Summary ---
Author Organization [facility] Address [address] [place] [address] Care Team Providers Care Cutter Hot Knife Name Role Phone Unavailable Primary Care Provider Unavailabl e Encounter Details Date Type Department Care Team (Late st Contact Info) Description 08/23/2005 Results Only [facility] - Maple conversion [address] [place] [address] Josie Schilling, [address] [place] [address] Social History Tobacco Use Types Packs/Day Years Used Date Smoking Tobacco: Never Assessed Sex and Gender Information Value Date Recorded Sex Assigned at Not on file Gender Identity Not on file Sexual Orientation Not on file documented as of this encounter Plan of Treatment Not on file documented as of this encounter Procedures Procedure Name Priority Date/Time Associated Diagnosis Comments CYTOPATHOLOGY Routine 08/23/2005 0:00 EST documented in this encounter Results * CYTOPATHOLOGY (08/23/2005 0:00 EST) Pathology Report: CYTOPATHOLOGY REPORT Reports generated via electronic interface contain original data; however they are lacking the format of the original report. Caution should be taken when reading/interpreti ng unformatted reports. Name: ? CHAGO ARITA ? Accession #: ? [id number] : ? 1985 (Age: 20) ??F ?Collect Date: ? 08/23/2005 Location: ? [facility] ? Receive Date: ? 08/27/2005 Provider: ?JOSIE KYLIE CNM Copy to: ? Specimen/Source: ?ThinPrep Pap Test, Cervix/Endocervix, processed on [facility] ThinPrep Imaging System, with manual evaluation Last Menstrual Period: ? 04/02 Menstrual/Pregnanc y Status: ? Other: ? HPVA - HPV testing requested if ASC-US on the current ThinPrep Pap test. ? SPECIMEN ADEQUACY ? Satisfactory for Evaluation - transformation zone component present GENERAL CATEGORIZATION ? Negative for Intraepithelial Lesion or Malignancy ? Document reviewed and electronically signed by: ? DAMIÁN Anderson(ASCP) ? Report Date: ??08/28/2005 09:27 End of Report CARLI IR[facility] 08/23/2005 08/27/2005 Josie Schilling [facility] PATHOLOGY ORDERABLES [facility] [address] [place] [address] documented in this encounter Visit Diagnoses Not on filedocumented in this encounter
--- OUTSIDE RECORDS SUMMARY | 2024-02-24 18:59 | XMS_ITS | Encounter Summary ---
Author Organization [facility] Address [address] [place] [address] Care Team Providers Care Base Remover Name Role Phone Unavailable Primary Care Provider Unavailabl e Encounter Details Date Type Department Care Team (Late st Contact Info) Description 06/12/2002 11:09 EST Hospital Encounter [facility] - Other [address] [place] [address] Inez Larios, [address] [place] [id number] Unknown, Provider, Social History Tobacco Use Types [...] Priority Date/Time Associated Diagnosis Comments CYTOPATHOLOGY Routine 06/12/2002 0:00 EST documented in this encounter Results * CYTOPATHOLOGY (06/12/2002 0:00 EST) Pathology Report: CYTOPATHOLOGY REPORT Reports generated via electronic interface contain original data; however they are lacking the format of the original report. Caution should be taken when reading/interpreti ng unformatted reports. Name: ? LYLA CHAGO L ? Accession #: ? [id number] : ? 1985 (Age: 17) ??F ?Collect Date: ? 06/12/2002 Location: ? [facility] ? Receive Date: ? 06/16/2002 Provider: ?INEZ LARIOS CNM Copy to: ? Specimen/Source: ?ThinPrep Pap Test, Cervix Last Menstrual Period: ? 07/12/01 Menstrual/Pregnanc y Status: ? Post ? SPECIMEN ADEQUACY ? Satisfactory for Evaluation - transformation zone component present GENERAL CATEGORIZATION ? Negative for Intraepithelial Lesion or Malignancy ? Document reviewed and electronically signed by: ? Mica Addison, SCT(ASCP) ? Report Date: ??06/19/2002 13:17 End of Report CARLI IRWIN 06/12/2002 06/16/2002 Inez Larios CNM PATHOLOGY ORDERABLES [facility] [address] [place] [address] documented in this encounter Visit Diagnoses Not on filedocumented in this encounter
--- OUTSIDE RECORDS SUMMARY | 2024-02-24 18:59 | XMS_ITS | Encounter Summary ---
Author Organization [facility] Address [address] [place] [address] Care Team Providers Care Kindergarten Tutor Name Role Phone Unavailable Primary Care Provider Unavailabl e Encounter Details Date Type Department Care Team (Latest Contact Info) Description 01/14/2007 9:06 EDT - 01/14/2007 11:59 EDT Hospital Encounter [facility] Emergency Department - [address] [address] Emergency, Default, MD Discharge Disposition: Home or Self Care Social History Tobacco Use Types Packs/Day Years Used Date Smoking Tobacco: Never Assessed Sex and Gender Information Value Date Recorded Sex Assigned at Not on file Gender Identity Not on file Sexual Orientation Not on file documented as of this encounter Discharge Disposition Disposition Code Departure Means Destination Home or Self Care documented in this encounter Plan of Treatment Pending Results Name Type Priority Associated Diagnoses Date /Time CYTOPATHOLOGY Pathology Routine 08/09/2009 0:00 EST CYTOPATHOLOGY Pathology Routine 08/09/2009 0:00 EST Scheduled Orders Name Type Priority Associated Diagnoses Orde r Schedule CYTOPATHOLOGY Pathology Routine For medicat ions that can be administered at any time during the hospitalization for visit such as immunizations. for 1 Occurrences starting 08/10/2009 CYTOPATHOLOGY Pathology Routine For medicat ions that can be administered at any time during the hospitalization for visit such as immunizations. for 1 Occurrences starting 08/10/2009 documented as of this encounter Procedures Procedure Name Priority Date/Time Associated Diagnosis Comments CYTOPATHOLOGY Routine 08/09/2009 0:00 EST CHEST PA AND LATERAL 01/14/2007 10:06 EDT documented in this encounter Results * CYTOPATHOLOGY (08/09/2009 0:00 EST) Pathology Report: CYTOPATHOLOGY REPORT ? Reports generated via electronic interface contain original data; ? however they are lacking the format of the original report. ? Caution should be taken when reading/interpreti ng unformatted reports. ? Name: ? LYLA, CHAGO L ? Accession #: ? [id number] ? : ? 1985 (Age: 24) ??F ?Collect Date: ? 08/09/2009 ? Location: ? [facility] ? Receive Date: ? 08/10/2009 ? Provider: ?ANEA LELONG CNM ? Copy to: ? Specimen/Source: ?Pap Test, Cervix/Endocervix, ThinPrep Imaging System ? with manual evaluation ? Last Menstrual Period: ? 9/10/09 ? Menstrual/Pregnanc y Status: ? Other: ? HPVA - HPV testing requested if ASC-US on the current ThinPrep Pap test. ? SPECIMEN ADEQUACY ? Unsatisfactory for Evaluation, ? - insufficient numbers of squamous epithelial cells (less than 10% of expected ?? cellularity) ? - sample preparation compromised by excessive blood ? GENERAL CATEGORIZATION ? Specimen processed and examined, but unsatisfactory for evaluation of ? epithelial abnormality. ? Recommend repeat Pap test or further follow up, as clinically indicated. ? Document reviewed and electronically signed by: ? Bela Daley CT(ASCP) ? Report Date: ??08/15/2009 09:41 ? End of Report ? [facility] IR[facility] 08/09/2009 08/10/2009 Anam Rachel CNM PATHOLOGY ORDERABLES [facility] [address] [place] [address] * CHEST PA AND LATERAL (01/14/2007 10:06 EDT) Anatomical Region Laterality Modality Other 01/14/2007 10:0 6 EDT Narrative 01/26/2009 11:55 EDT s/p chest wall injury r/o pneumothorax, contusion, rib fx PA and lateral chest January 14, 2007 at 1004. History: Chest wall injury, rule out pneumothorax, contusion, or rib fracture. Comparison: None. Findings: PA and lateral examination the chest demonstrate no areas of airspace opacity to suggest pneumonia or pulmonary contusion. The cardiomediastinal silhouette is unremarkable. No pleural edge is identified to suggest pneumothorax. No displaced rib fractures are seen. Impression: No evidence of injury to the chest. I have personally reviewed the images and the above interpretation and agree with the findings. Procedure Note Selwyn Dobbins MD / Raul Ruiz MD - 01/26/2009 s/p chest wall injury r/o pneumothorax, contusion, rib fx PA and lateral chest January 14, 2007 at 1004. History: Chest wall injury, rule out pneumothorax, contusion, or rib fracture. Comparison: None. Findings: PA and lateral examination the chest demonstrate no areas of airspace opacity to suggest pneumonia or pulmonary contusion. The cardiomediastinal silhouette is unremarkable. No pleural edge is identified to suggest pneumothorax. No displaced rib fractures are seen. Impression: No evidence of injury to the chest. I have personally reviewed the images and the above interpretation and agree with the findings. Raj Coley MD IMG DIAGNOSTIC IMAG ING ORDERABLES documented in this encounter Visit Diagnoses Not on filedocumented in this encounter
--- OUTSIDE RECORDS SUMMARY | 2024-02-24 18:59 | XMS_ITS | Encounter Summary ---
Author Organization [facility] Address [address] [place] [address] Care Team Providers Care Insurance Producer Name Role Phone Unavailable Primary Care Provider Unavailabl e Encounter Details Date Type Department Care Team (Latest Contact Info) Description 12/28/1999 8:35 EDT - 12/28/1999 11:59 EDT Hospital Encounter [facility] - Other [address] [place] [id number] Mukesh Rojas MD Unknown, Provider, Discharge Disposition: [...] Priority Date/Time Associated Diagnosis Comments CYTOPATHOLOGY Routine 12/28/1999 0:00 EDT documented in this encounter Results * CYTOPATHOLOGY (12/28/1999 0:00 EDT) Pathology Report: CYTOPATHOLOGY REPORT Reports generated via electronic interface contain original data; however they are lacking the format of the original report. Caution should be taken when reading/interpreti ng unformatted reports. Name: ? CHAGO ARITA ? Accession #: ? [id number] : ? 1985 (Age: 14) ??F ?Collect Date: ? 12/28/1999 Location: ? [facility] ? Receive Date: ? 12/29/1999 Provider: ?MUKESH ROJAS MD Copy to: ? Specimen/Source: ?ThinPrep Pap Test, Source Not Provided Last Menstrual Period: ? 11/11/99 Hormonal/Contracep tive Status: ? Depo-Provera Previous Gynecologic Pathology: ? ASC-US: ? HSIL 11/02/99 ? SPECIMEN ADEQUACY ? Satisfactory for evaluation. GENERAL CATEGORIZATION ? Epithelial Cell Abnormality DESCRIPTIVE DIAGNOSIS ? Squamous intraepithelial lesion, see comment. ? COMMENT ? At least low grade squamous intraepithelial lesion is present. There are also a few groups of crowded hyperchromatic cells, suspicious for high grade squamous intraepithelial lesion. ? Document reviewed and electronically signed by: ? Rebecca Olvera MD PhD ? Report Date: ??01/08/2000 15:28 End of Report [facility] 12/28/1999 12/29/1999 Mukesh Rojas MD PATHOLOGY ORDERABLES [facility] [address] [place] [address] documented in this encounter Visit Diagnoses Not on filedocumented in this encounter
--- OUTSIDE RECORDS SUMMARY | 2024-02-24 18:59 | XMS_ITS | Encounter Summary ---
Author Organization [facility] Address [address] [place] [address] Care Team Providers Care Rehabilitation Medicine Physician Name Role Phone Unavailable Primary Care Provider Unavailabl e Encounter Details Date Type Department Care Team (Late st Contact Info) Description 08/24/2005 Results Only [facility] - Maple conversion [address] [place] [address] Unknown, Provider, Social History Tobacco Use Types [...] Diagnosis Comments N. GONORRHOEAE AMPLIFIED PROBE Routine 08/24/2005 18:10 EST ZZCHLAMYDIA TRACHOMATIS AMPLIFIED PROBE Routine 08/24/2005 18:10 EST documented in this encounter Results * N. GONORRHOEAE AMPLIFIED PROBE (08/24/2005 18:10 EST) Result No Neisseria gonorrhoeae DNA detected by robotic maintenance technician mediated amplification. [facility] Report Status Final [id number] [facility] Specimen Description Vagina [facility] 08/24/2005 18:1 0 EST 08/26/2005 14:14 EST Provider Unknown MICROBIOLOGY - GENER AL ORDERABLES Performing Organization Address [facility] Co de Phone Number [facility] [address] [place] [address] * CHLAMYDIA TRACHOMATIS AMPLIFIED PROBE (08/24/2005 18:10 EST) Specimen Description Vagina [facility] Result No Chlamydia trachomatis DNA detected by robotic maintenance technician mediated amplification. [facility] Report Status Final [id number] [facility] 08/24/2005 18:1 0 EST 08/26/2005 14:14 EST Provider Unknown MD ROSE MARY KIRK ORDERABLES Performing Organization Address [facility] de Phone Number [facility] [address] [place] [address] documented in this encounter Visit Diagnoses Not on filedocumented in this encounter
[2024-02-24 21:38] LABS: Abs Immature Grans 0.03 10^3/uL (0.0-0.06); Absolute Basophil Count 0.04 10^3/uL (0.0-0.2); Absolute Lymphocyte Count 2.49 10^3/uL (1.2-3.4); Absolute Neutrophil Count 5.66 10^3/uL (1.2-6.7); Basophils % 0.5 %; Eosinophils % 1.1 %; HGB 13.1 g/dL (11.2-15.7); Immature Grans % 0.3 %; Lymphocytes % 28.6 %; MCH 28.8 pg (27.0-33.0); MCHC 32.8 % (32.0-36.0); MCV 88 fL (80-95); Monocytes % 4.6 %; Neutrophils % 64.9 %; Platelet Count 138 10^3/uL (130-400); RBC 4.55 10^6/uL (3.93-5.22); RDW 13.4 % (11.7-14.6); RDW-SD 43.4 fL; WBC 8.72 10^3/uL (4.4-10.8)
[2024-02-24 21:50] LABS: ALT 18 U/L (14-59); AST 11 U/L (15-37); Albumin 3.6 g/dL (3.4-5.0); Alkaline Phosphatase 45 U/L (46-116); Anion Gap 8.3 mmol/L (3-11); BUN 9 mg/dL (7-18); Bilirubin, Total 0.25 mg/dL (0.2-1.0); CO2 28.7 mmol/L (21.0-32.0); CREATININE 0.9 mg/dL (0.55-1.02); Calcium 8.7 mg/dL (8.5-10.1); Chloride 109 mmol/L (98-107); Estimated GFR 82.88 (mL/min/1.73m2); Glucose 108 mg/dL (74-106); Lipase 28 U/L (16-77); Potassium 3.8 mmol/L (3.5-5.1); Sodium 146 mmol/L (136-145); Total Protein 6.4 g/dL (6.4-8.2)
[2024-02-25 19:10] LABS: Hepatitis A Antibody IgM Negative (Negative); Hepatitis B Core Antibody Negative (Negative); Hepatitis B surface Ag Negative (Negative); Hepatitis C Ab w Rflx HCV PCR Negative (Negative)
[2024-02-25 19:13] LABS: Hep A Total Ab w Rflx IgM Negative (Negative)
== END 2024-02-24 18:55 | disposition home or self-care (01) ==
LOC: LBN 18:54
PROVIDERS: Physician Assistant; PCP Nurse Practitioner Family; Visit Provider Nurse Practitioner Family
DX: R10.9 Unspecified abdominal pain (principal); N39.0 Urinary tract infection, site not specified; B96.89 Other specified bacterial agents as the cause of diseases classified elsewhere
CPT/HCPCS: 80053; 83690; 86704; 86709; 86803; 87340; 85025; 87086

== ENCOUNTER 2024-08-08 13:01 | Emergency (ER) | payer SELFPAY ==
--- NOTE | 2024-08-08 13:00 | RT.EKG_ITS ---
APPROVED REPORT Exam: Resting ECG Reason for Exam: Dizzyness Patient Location: E HR:95 bpm ECG Measurements Heart Rate 95 AXIS UT 136 P 71 QRSd 76 QRS 64 QT 362 T 47 QTc 454 Conclusion Sinus rhythm...normal P axis, V-rate 60- 99
[2024-08-08 13:04] VITALS: BP 109/74; PULSE 86; RESP 16; TEMP 36.5
--- NOTE | 2024-08-08 13:15 | DI.RAD_ITS ---
Exam(s) XR PORTABLE CHEST AP EXAM: XR PORTABLE CHEST AP CLINICAL HISTORY: SOB, CP TECHNIQUE: 2D digital imaging was performed of the chest. One image was obtained. An AP view was ob tained. COMPARISON: CR,XR XR PORTABLE CHEST AP from 06/15/2020 FINDINGS: MEDIASTINUM: Normal. HEART: Normal. PULMONARY VASCULATURE: Normal. LUNGS: Clear. PLEURAL SPACE: No pleural effusion or pneumothorax. BONE:Within normal limits for the patient's age. OTHER FINDINGS:Normal. IMPRESSION: No acute pulmonary findings. DATA REPOSITORY: RADIATION DOSE DELIVERED:
[2024-08-08 13:30] VITALS: RESP 20
--- NOTE | 2024-08-08 13:30 | W.ED.GENAD ---
Discharge Plan Disposition Patient Disposition: Home Discharge Details Clinical Impression: Episodic lightheadedness Primary Care Provider: [facility] ED Provider: Dionna Osorio Home Meds and New Rx's Prescriptions: No Action Mirena 20 mcg/24 hours (8 yrs) 52 mg intrauterine device 1 device intrauterine ONCE Rx Instructions: as a single dose selenium sulfide 2.5 % lotion 1 applic topical DAILY PRN ibuprofen 200 mg tablet 200 mg PO Q6H PRN Discharge Instructions Additional Instructions: Your workup today was very reassuring. The cause of your symptoms today is uncertain, however we did an extensive workup and looked at your heart, lungs, and blood work. COVID and flu are negative. Your symptoms may be caused by acid reflux/GERD, though there may be a component of anxiety and viral illness as well. I recommend that you take an [id number] medication such as famotidine according to package instructions. Stay well-hydrated, drinking plenty of electrolyte rich fluids. Get plenty of rest as needed. I recommend you also try meditation/mindfulness apps such as seedtag Timer. Return to emergency care if develop new chest pains, episodes of severe dizziness/passing out, difficulty breathing, severe abdominal pain, or if you are very worried and need to be rechecked again immediately Referrals: [facility], COMMUNICATIONS SENIOR ASSOCIATE [Primary Care Provider] - HPI General Date/Time Provider Initiated Documentation: 08/08/24 13:03. HPI Narrative: Nicole is a 39year old female who presents to the emergency department today for evaluation of unwellness. She reports that this morning around 930 she was sitting on the couch and all of a sudden felt dizzy and cold. She reports that she feels more dizzy and short of breath than usual while walking, does have shortness of breath of unknown etiology per baseline. Around 1230 she had an episode of chest discomfort that she says has been coming and going since then. Also admits to upper abdominal discomfort accompanied by nausea and soft stool this morning. Denies associated fevers, headache, congestion, vision changes, sore throat, ear pain, cough, change in bowel or bladder function. Denies history of blood clots/clotting disorder, estrogen use, recent surgery/immobility/long distance travel, calf swelling/tenderness/erythema. Past medical history is significant for shortness of breath, depression/anxiety. 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 Physical exam reassuring. Nicole is alert and oriented, no acute distress, though does appear anxious. Moist mucous membranes. Normal oropharynx. Easy work of breathing, lung sounds clear bilaterally. Normal heart sounds. Abdomen is soft, nondistended, nontender to palpation. No JVD, pedal edema, or calf swelling/tenderness. No obvious rashes. D/dx includes but is not limited to: Viral illness such as COVID-19 or flu, dehydration, electrolyte imbalance, anxiety, esophageal spasm, low suspicion for ACS or cardiac arrhythmia. Heart score 0, indicating low risk of MACE. PERC negative I independently interpreted the following tests: EKG reassuring, normal sinus rhythm rate 95, normal intervals, no changes consistent with acute ischemia. CBC, CMP, lipase, COVID/flu, troponin (<4) all reassuring. No obvious cardiomegaly or infiltrate noted on chest x-ray, this was confirmed by radiologist. Overall workup today very reassuring. Unclear etiology of symptoms, likely GERD, though viral illness and anxiety anything contributory. Reviewed discharge instructions with patient, including symptomatic management including use of famotidine, anxiety management, and PCP follow-up as needed, as well as red flags indicating need for return to emergency care Related Data Home Medications ?Medication ?Instructions ?Recorded ?Confirmed levonorgestrel 21 mcg/24 hr (up to 1 device intrauterine ONCE 05/31/22 08/08/24 8 years) 52 mg intrauterine device (Mirena) ibuprofen 200 mg tablet 200 mg PO Q6H PRN 07/18/22 08/08/24 selenium sulfide 2.5 % lotion 1 applic topical DAILY PRN 07/18/22 08/08/24 Allergies Allergy/AdvReac Type Severity Reaction Status Date / Time Penicillins Allergy Mild Itching Verified 08/08/24 13:09 General Stated Complaint: SOB/SuddenOnset CELSO: 3 Review of Systems Narrative: See HPI Exam Const General: cooperative, healthy appearing, comfortable, no acute distress, well developed, well groomed and anxious Orientation: alert and oriented x3 [facility] General nose exam: external nose normal Face and sinus: normal facial exam Mouth: oral mucosae normal, lip normal, tongue normal, oropharynx normal and moist mucous membranes Neck Neck: normal visual inspection and full ROM Resp Effort & Inspection: normal respiratory effort and able to speak in complete sentences Auscultation: clear to auscultation bilaterally Cardio Rate: regular rate Rhythm: regular rhythm GI Inspection: normal to inspection and non-distended Palpation: soft, not firm, no guarding, not rigid and nontender Skin General skin exam: no rashes or lesions noted Neuro General: patient alert, patient oriented x3, gait normal, tone normal, moves all extremities and no focal motor deficits Cognition: normal cognition Speech: speech normal Extrem General: normal to inspection, full ROM, no pedal edema, no calf tenderness and normal gait Course Vital Signs Vital signs: Vital Signs Temperature 36.5 C 08/08/24 13:04 Pulse 86 08/08/24 13:04 Respiratory Rate 16 08/08/24 13:04 Blood Pressure 109/74 08/08/24 13:04 Temperature 36.5 C 08/08/24 13:04 Temperature Source Oral 08/08/24 13:04 Pulse 86 08/08/24 13:04 Respiratory Rate 16 08/08/24 13:04 Blood Pressure 109/74 08/08/24 13:04 Blood Pressure Position Sitting 08/08/24 13:04 Oxygen Delivery Method Room Air 08/08/24 13:04 Oxygen Flow Rate 0 08/08/24 13:04 Pain Level 2 08/08/24 13:04 Medical Decision Making Quality:SDOH Health Related Social Needs: No Data to Display PFSH All Active Problems (Updated 08/08/24 @ 15:07 by Dionna Paredes) Episodic lightheadedness (Acute) De Quervain's tenosynovitis, right (Acute) Anxiety (Chronic) Depression (Chronic) Tendonitis of wrist, right (Acute) Routine follow-up (Acute) Encounter for insertion of mirena IUD (Acute) Rubella non-immune status, antepartum (Acute) Rh negative state in antepartum period (Acute) Medical History Depression with anxiety History of asthma Tinea corporis Skin lesion Tendinitis Hyperpigmentation Exertional shortness of breath Dysmenorrhea Vaginal odor Anemia hemorrhage, delivered Normal spontaneous vaginal delivery Spontaneous onset of labor Elderly multigravida in third trimester Pain in symphysis pubis during 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[facility] US, circumvallate placenta with succenturiate lobe 11/17 Cramping complicating , antepartum Anemia affecting Tobacco dependence History of abnormal cervical Pap smear LEEP procedure Anemia affecting fifth Threatened in first trimester COVID-19 affecting in first trimester Surgical History Cervical Procedure LEEP in her late teens Family History Grandmother Breast cancer maternal Thyroid disorder maternal Maternal Grandmother Thyroid disorder Breast cancer Mother Substance use disorder Depression Bipolar 1 disorder Father Substance use disorder ETOH Social History Smoking/Tobacco Use Status: Former Tobacco Use Smoking risk assessment performed?: Yes Alcohol Intake: never Drug use: Never Substance use type: does not use Do you feel safe at home: Yes Do you feel safe in your relationship?: Yes History History 7 Para 5 Hx # Term Pregnancies 5 Multiple births 0 Hx # Pregnancies 0 Ectopic pregnancies 0 AB induced 0 Hx Number of Living Children 5 AB spontaneous 2 Past Pregnancies Del. Date GA/Weeks # Preg Succ Route Wgt Sex Labor Lgth Anesthesia Location Prov Complic 04/07/02 38 No vaginal 3061.748 g Male 48 hrs [facility] 12/14/04 39 No vaginal 3005.049 g Female 20 hrs [facility] 01/07/06 38 No vaginal 3515.341 g Female 24 hrs [facility] 01/10/10 37 No vaginal 3458.642 g Male 20 hrs [facility] 04/03/22 39 No Yes vaginal Female [facility] [place] Delivery Date: 04/07/02 Last Updated by: Vivi Alonzo uncomplicated delivery Ty Delivery Date: 12/14/04 Last Updated by: Tonya Camacho CNM uncomplicated delivery Shannan. Retained membranes x 10 days. febrile, uncertain if treated with antibiotics. Delivery Date: 01/07/06 Last Updated by: Vivi Alonzo uncomplicated delivery Shakira Delivery Date: 01/10/10 Last Updated by: Vivi Alonzo IOL for low fluid, attempted epidural but it was one-sided, [place] Delivery Date: 04/03/22 Last Updated by: PARRISH Mcnulty
--- OUTSIDE RECORDS SUMMARY | 2024-08-08 14:08 | XMS_ITS | Encounter Summary ---
Author Organization [facility] Address [address] [place] [address] Care Team Providers Care Power Station Operator Name Role Phone Willy Okeefe MD Primary Care Provider Un available Jamila Bartholomew NP Primary Care Provider [phone] Encounter Details Date Type Department Care Team (Late st Contact Info) Description 04/05/2022 Lab Requisition [facility] Pathology & Laboratory Medicine - [facility] [address] [place] [address] [place], [place] [id number] Social History Tobacco Use Types Packs/Day Years Used Date Smoking Tobacco: Never Assessed Comments Unknown Sex and Gender Information Value Date Recorded Sex Assigned at Not on file Legal Sex Female 17:35 EST Gender Identity Not on file Sexual Orientation Not on file documented as of this encounter Plan of Treatment Not on file documented as of this encounter Procedures Procedure Name Priority Date/Time Associated Diagnosis Comments SCREEN TEST Today 04/05/2022 9:03 EDT documented in this encounter Results * SCREEN TEST (04/05/2022 9:03 EDT) Screen Test NEGATIVE 04/05/2022 20:55 EDT [facility] Comment:results called to Adolph Calix in Blood Bank at [facility]. Fax results to follow Blood VENOUS BLOOD / Unknown 04/05/2022 9:03 EDT 04/05/2022 20:06 EDT Tonya Camacho [facility] TESTS Final Result [facility] [address] [facility] [address] documented in this encounter Visit Diagnoses Not on filedocumented in this encounter Care Teams Power Station Operator Relationship Specialty Start Date End Date Willy Okeefe MD PCP - General 06/19/11 04/27/22 Jamila Bartholomew NP [address] [place] [address] PCP - General Family Medicine - Primary Care 04/28/22 documented as of this encounter
--- OUTSIDE RECORDS SUMMARY | 2024-08-08 14:08 | XMS_ITS | Encounter Summary ---
Author Organization [facility] Address [address] [place] [address] Care Team Providers Care Capacitor Inspector Name Role Phone Willy Okeefe MD Primary Care Provider Un available Jamila Bartholomew NP Primary Care Provider [phone] Encounter Details Date Type Department Care Team (Late st Contact Info) Description 09/29/2021 Lab Requisition [facility] Pathology & Laboratory Medicine - [facility] [address] [place] [address] [address] [place], [place] [address] Encounter for other general examination Social History [...] Risk types, PCR Negative Negative 10/05/2021 15:06 [facility] Comment:No E6 or E7 mRNA is detected from HPV types 16,18,31,33,35,39,45,51,52,56,58,59,66, and 68 by home theater expert mediated amplification. Papanicolaou smear specimen (specimen) CERVIX UTERI STRUCTURE / Unknown 09/28/2021 3:35 EST 10/04/2021 9:46 EST Tonya Camacho [facility] MICROBIOLOGY - GENERAL ORDERABLES Final Result [facility] [address] [place] [address] * PAP TEST (09/28/2021 3:35 EST) Specimens A. Cervix and/or Endocervix , ThinPrep Imaging System with Manual Evaluation 10/05/2021 15:06 [facility] Specimen Adequacy Satisfactory for Evaluation - transformation zone component present 10/05/2021 15:06 [facility] General Categorization Negative for intraepithelial lesion or malignancy 10/05/2021 15:06 [facility] Attestation . 10/05/2021 15:06 [facility] at 1506 Clinical History SEE BELOW 10/06/19 22 15:06 [facility] HPV The result for the Human Papillomavirus (HPV) Detection-High Risk Types is Negative. No E6 or E7 mRNA is detected from HPV types 16,18,31,33,35,39 ,45,51,52,56,58,5 9,66, and 68 by home theater expert mediated amplification.Smiley ting was performed on specimen [id number] and was resulted on 10/05/2021 1500 EST by VALDEMAR, LAB INSTRUMENT RESULTS IN 10/05/2021 15:06 [facility] Performing Lab [facility] 10/05/2021 15:06 [facility] Scanned Images 10/05/2021 15:06 [facility] Papanicolaou smear specimen (specimen) CERVIX UTERI STRUCTURE / Unknown 09/28/2021 3:35 EST 09/29/2021 9:50 EST us Tonya Camacho [facility] PATHOLOGY ORDERABLES F inal Result [facility] [address] [place] [address] documented in this encounter Visit Diagnoses Diagnosis Encounter for other general examination documented in this encounter Care Teams Capacitor Inspector Relationship Specialty Start Date End Date Willy Okeefe MD PCP - General 06/19/11 04/27/22 Jamila Bartholomew JUVENILE JUSTICE SPECIALIST [address] [place] [address] PCP - General Family Medicine - Primary Care 04/28/22 documented as of this encounter
--- OUTSIDE RECORDS SUMMARY | 2024-08-08 14:08 | XMS_ITS | Encounter Summary ---
Author Organization [facility] Address [address] [place] [address] Care Team Providers Care Candy Spreader Helper Name Role Phone Willy Okeefe MD Primary Care Provider Un available Jamila Bartholomew NP Primary Care Provider [phone] Encounter Details Date Type Department Care Team (Late st Contact Info) Description 04/04/2022 Lab Requisition [facility] Pathology & Laboratory Medicine - [facility] [address] [place] [address] [address] [place] [address] [place] [address] Encounter for full-term uncomplicated delivery; [...] explore management options, if applicable. 05/10/2022 11:25 [facility] Final Diagnosis A. RETAINED PLACENTAL TISSUE, REMOVAL: - Gestational endometrium and myometrium with features of adenomyoma/adenom yosis - Negative for malignancy 05/10/2022 11:25 [facility] Attestation By the signature below, the attending physician certifies that they have 1) personally conducted a gross and/or microscopic examination of the described specimen(s), and/or personally interpreted the results of laboratory testing of the described specimen(s), and 2) personally rendered or confirmed the above diagnosis. 05/10/2022 11:25 [facility] at 1124 Clinical History Placental tissue, retained, 39.4 weeks 05/10/2022 11:25 [facility] Gross Description A. Received [...] No masses or lesions are grossly identified. Second Class Welder sections are submitted in A1-A3. ANITRA MCDONALD(ASCP) 04/05/2022 8:53 05/10/2022 11:25 [facility] Performing Lab [facility] 05/10/2022 11:25 [facility] Scanned Images 05/10/2022 11:25 [facility] Tissue PRODUCTS OF CONCEPTION TISSUE SPECIMEN / Unknown 04/04/2022 9:50 EDT 04/04/2022 19:03 EDT us [place] [facility] PATHOLOGY ORDERABLES Final Resul t [facility] [address] [place] [address] documented in this encounter Visit Diagnoses Diagnosis Encounter for full-term uncomplicated delivery Normal delivery Circumvallate placenta, unspecified trimester Other immediate hemorrhage documented in this encounter Care Teams Candy Spreader Helper Relationship Specialty Start Date End Date Willy Okeefe MD PCP - General 06/19/11 04/27/22 Jamila Bartholomew NP [address] [place] [address] PCP - General Family Medicine - Primary Care 04/28/22 documented as of this encounter
--- OUTSIDE RECORDS SUMMARY | 2024-08-08 14:08 | XMS_ITS | Encounter Summary ---
Author Organization [facility] Address [address] [place] [address] Care Team Providers Care Director Life Sciences Name Role Phone Willy Okeefe MD Primary Care Provider Un available Jamila Bartholomew NP Primary Care Provider [phone] Encounter Details Date Type Department Care Team (Late st Contact Info) Description 09/29/2021 Lab Requisition [facility] Pathology & Laboratory Medicine - [facility] [address] [place] [address] Outr Resulting Lab, Provider Social History Tobacco [...] gonorrhoeae Result Negative Negative 10/02/2021 14:13 EST [facility] Chlamydia trachomatis Result Negative Negative 10/02/2021 14:13 EST [facility] Swab ENTIRE ENDOCERVIX / Unknown 09/28/2021 15:20 EST 09/29/2021 19:03 EST us Provider Outr Resulting Lab MICROBIOLOGY - GENER AL ORDERABLES Final Result [facility] [address] [place] [address] documented in this encounter Visit Diagnoses Not on filedocumented in this encounter Care Teams Director Life Sciences Relationship Specialty Start Date End Date Willy Okeefe MD PCP - General 06/19/11 04/27/22 Jamila Bartholomew FIELD COLLECTOR [address] [place] [address] PCP - General Family Medicine - Primary Care 04/28/22 documented as of this encounter
--- OUTSIDE RECORDS SUMMARY | 2024-08-08 14:08 | XMS_ITS | Encounter Summary ---
Author Organization [facility] Address [address] [place] [address] Care Team Providers Care Customer Support Assistant Name Role Phone Unavailable Primary Care Provider Unavailabl e Encounter Details Date Type Department Care Team (Latest Contact Info) Description 01/14/2007 9:06 EDT - 01/14/2007 11:59 EDT Hospital Encounter [facility] Emergency Department - [address] [address] Emergency, Default, MD Discharge Disposition: Home or [...] reading/interpreti ng unformatted reports. ? Name: ? CHAGO JACOBS ? Accession #: ? [id number] ? : ? 1985 (Age: 24) ??F [...] reviewed and electronically signed by: ? Bela Daley, CT(ASCP) ? Report Date: ??08/15/2009 09:41 ? End of Report ? [facility] 08/09/2009 08/10/2009 us Anam Ramos CNM PATHOLOGY ORDERABLES Final Resul t [facility] [address] [place] [address] * CHEST PA AND LATERAL (01/14/2007 10:06 [...] the findings. Raj Coley MD IMG DIAGNOSTIC IMAGING NIDHI DYER Final Result documented in this encounter Visit Diagnoses Not on filedocumented in this encounter
--- OUTSIDE RECORDS SUMMARY | 2024-08-08 14:08 | XMS_ITS | Encounter Summary ---
Author Organization [facility] Address [address] [place] [address] Care Team Providers Care Puddler Pile Driving Name Role Phone Unavailable Primary Care Provider Unavailabl e Encounter Details Date Type Department Care Team (Late st Contact Info) Description 12/19/2001 14:26 EDT Hospital Encounter [facility] - Other [address] [place] [address] Josie Schilling, [address] [place] [address] Unknown, Provider, Social History Tobacco Use Types [...] when reading/interpreti ng unformatted reports. Name: ? ISAIAS JACOBSRiaz Donald ? Accession #: ? [id number] : ? 1985 (Age: 16) ??F ?Collect Date: ? 12/19/2001 Location: ? [facility] ? Receive Date: ? 12/24/2001 Provider: ?JOSIE KYLIE CNM Copy to: ? Specimen/Source: ?ThinPrep Pap Test, Cervix/Endocervix Last Menstrual Period: ? SPECIMEN ADEQUACY ? Satisfactory for Evaluation - transformation zone component present GENERAL CATEGORIZATION ? Epithelial Cell Abnormality INTERPRETATION ? Squamous Cell Abnormality - Low grade squamous intraepithelial lesion (LSIL). EDUCATIONAL NOTES/RECOMMENDATI ONS ? [facility] recommends following the 2001 Consensus Guidelines for the Management of Women with Cervical Cytological Abnormalities (IBRAHIMA,2002;287:212 0-9). Management algorithms have been distributed by [facility] and are available online at www.ASCCP.org. ? Document reviewed and electronically signed by: ? ELIZA WEST MD ? Report Date: ??12/26/2001 09:58 End of Report [facility] 12/19/2001 12/24/2001 us Josie Schilling CNM PATHOLOGY ORDERABLES Final Re sult [facility] [address] [place] [address] documented in this encounter Visit Diagnoses Not on filedocumented in this encounter
--- OUTSIDE RECORDS SUMMARY | 2024-08-08 14:08 | XMS_ITS | Encounter Summary ---
Author Organization [facility] Address [address] [place] [address] Care Team Providers Care Reset Merchandiser Name Role Phone Unavailable Primary Care Provider Unavailabl e Encounter Details Date Type Department Care Team (Late st Contact Info) Description 08/10/2006 Results Only [facility] [address] [place] [address] Unknown, Provider, Social History Tobacco Use Types [...] 13:19 EST) Hepatitis B Surface Ag Neg [facility] Hepatitis B Surface Ab Neg [facility] Hep B Core Ab Neg [facility] Hep A Antibody Neg [facility] Hepatitis C Ab Neg [facility] 08/10/2006 13:1 9 EST 08/11/2006 16:22 EST us Provider Unknown CHEMISTRY & BLOOD GAS ORDERA BLES Final Result Performing Organization Address [facility] de Phone Number [facility] [address] [place] [address] * HIV ANTIBODY (DOMENIC) (08/10/2006 13:19 EST) HIV 1/2 Antibody NONREACT. NR [facility] 08/10/2006 13:1 9 EST 08/11/2006 16:22 EST us Provider Unknown IMMUNOLOGY AND SEROLOGY ORDE RABLES Final Result Performing Organization Address [facility] de Phone Number [facility] [address] [place] [address] * N. GONORRHOEAE AMPLIFIED PROBE (08/10/2006 13:18 EST) Result No Neisseria gonorrhoeae DNA detected by assistant director of security mediated amplification. [facility] Report Status Final [id number] [facility] Specimen Description Urine [facility] 08/10/2006 13:1 8 EST 08/11/2006 16:22 EST us Provider Unknown MICROBIOLOGY - GENERAL ORDER OLINDA Final Result Performing Organization Address [facility] de Phone Number [facility] [address] [place] [address] * CHLAMYDIA TRACHOMATIS AMPLIFIED PROBE (08/10/2006 13:18 EST) Specimen Description Urine [facility] Result No Chlamydia trachomatis DNA detected by assistant director of security mediated amplification. [facility] Report Status Final [id number] [facility] 08/10/2006 13:1 8 EST 08/11/2006 16:22 EST us Provider Unknown MD MICROBIOLOGY - GENERAL ORDER OLINDA Final Result [facility] [address] [place] [id number] documented in this encounter Visit Diagnoses Not on filedocumented in this encounter
--- OUTSIDE RECORDS SUMMARY | 2024-08-08 14:08 | XMS_ITS | Clinical Summary ---
Author Organization [facility] Address [facility] [place] [address] Care Team Providers Care Halfway House Counselor Name Role Phone None Primary Care Provider [...] Hepatitis B vaccine (0-59 yrs) (1) 2002 Tetanus/Diphtheria/Pertussis Vaccines (1 - Tdap) 05/26 HPV test 2013 PAP Smear 2013 Breast Cancer Share Decision Needed 2023 Breast Cancer screening 2023 Covid-19 Vaccine ( season) 2024 Influenza (Flu) vaccine (1 o f 1 - Influenza standard series) 03/29/2024 Care Teams Halfway House Counselor Relationship Specialty Start Date End Date None None PCP - General 09/26/21
--- OUTSIDE RECORDS SUMMARY | 2024-08-08 14:08 | XMS_ITS | Encounter Summary ---
Author Organization [facility] Address [address] [place] [address] Care Team Providers Care Citizen Participation Specialist Name Role Phone Unavailable Primary Care Provider Unavailabl e Encounter Details Date Type Department Care Team (Late st Contact Info) Description 07/18/2000 13:12 EST Hospital Encounter [facility] - Other [address] [place] [address] Willy Nguyen MD 1 [facility] Level [address] [place] [id number] Unknown, Provider, Social History Tobacco Use Types [...] CHAGO ARITA Odilon ? Accession #: ? [id number] : ? 1985 (Age: 15) ??F ?Collect Date: ? 07/18/2000 Location: ? [facility] ? Receive Date: ? 07/19/2000 Provider: ?MUKESH BALBUENA MD Copy to: ? Specimen/Source: ?ThinPrep Pap Test, Cervix/Endocervix Last Menstrual Period: ? SPECIMEN ADEQUACY ? Satisfactory for evaluation. GENERAL CATEGORIZATION ? Within Normal Limits ? Document reviewed and electronically signed by: ? Tracey Clark SCT(ASCP) ? Report Date: ??07/25/2000 08:45 End of Report [facility] 07/18/2000 07/19/2000 us Mukesh Balbuena MD PATHOLOGY ORDERABLES Final Res ult [facility] [address] [place] [address] documented in this encounter Visit Diagnoses Not on filedocumented in this encounter
--- OUTSIDE RECORDS SUMMARY | 2024-08-08 14:08 | XMS_ITS | Encounter Summary ---
Author Organization [facility] Address [address] [place] [address] Care Team Providers Care Hard Candy Spinner Name Role Phone Willy Okeefe MD Primary Care Provider Un available Jamila Bartholomew NP Primary Care Provider Encounter Details Date Type Department Care Team (Late st Contact Info) Description 09/29/2021 Lab Requisition [facility] Pathology & Laboratory Medicine - [facility] [address] [place] [address] Outr Resulting Lab, Provider Social History Tobacco [...] Ab Positive See Note 10/01/2021 13:55 EST [facility] Comment:Presence of detectab le Varicella Zoster virus IgG antibodies. Blood VENOUS BLOOD / Unknown 09/28/2021 16:00 EST 09/29/2021 16:30 EST us Provider Outr Resulting Lab IMMUNOLOGY AND SEROL OGY ORDERABLES Final Result Performing Organization Address City/[facility] Co de Phone Number [facility] [address] [place] [address] * RUBELLA IGG ANTIBODY (09/28/2021 16:00 EST) Rubella IgG Ab Negative See Note 10/01/2021 13:57 EST [facility] Comment:Sample is considered negative for IgG antibodies to Rubella virus. A negative result presumes that immunity has not been acquired. If exposure to Rubella virus is suspected despite a negative finding, a second specimen should be collected and tested for Rubella IgG Ab one or two weeks later. Blood VENOUS BLOOD / Unknown 09/28/2021 16:00 EST 09/29/2021 16:30 EST us Provider Outr Resulting Lab CHEMISTRY & BLOOD GA S ORDERABLES Final Result Performing Organization Address [facility] Co de Phone Number [facility] [address] [place] [address] documented in this encounter Visit Diagnoses Not on filedocumented in this encounter Care Teams Hard Candy Spinner Relationship Specialty Start Date End Date Willy Okeefe MD PCP - General 06/19/11 04/27/22 Jamila Bartholomew TICKET SCHEDULER [facility] [place] [address] PCP - General Family Medicine - Primary Care 04/28/22 documented as of this encounter
--- OUTSIDE RECORDS SUMMARY | 2024-08-08 14:08 | XMS_ITS | Encounter Summary ---
Author Organization [facility] Address [address] [place] [address] Care Team Providers Care Partnership Development Manager Name Role Phone Willy Okeefe MD Primary Care Provider Un available Jamila Bartholomew NP Primary Care Provider [phone] Encounter Details Date Type Department Care Team (Late st Contact Info) Description 09/29/2021 Lab Re[address] [facility] Pathology & Laboratory Medicine - [facility] [address] [place] [address] Outr Resulting Lab, Provider Social History Tobacco [...] Surface Ag Negative Negative 10/02/2021 10:32 EST [facility] Blood VENOUS BLOOD / Unknown 09/28/2021 16:00 EST 09/29/2021 16:30 EST us Provider Outr Resulting Lab CHEMISTRY & BLOOD GA S ORDERABLES Final Result Performing Organization Address City/[facility] Co de Phone Number [facility] [address] [place] [address] * HEPATITIS C AB W REFLEX TO HCV RNA BY PCR (09/28/2021 16:00 EST) Hep C Antibody Negative Negative 10/02/2021 10:07 EST [facility] Blood VENOUS BLOOD / Unknown 09/28/2021 16:00 EST 09/29/2021 16:30 EST us Provider Outr Resulting Lab CHEMISTRY & BLOOD GA S ORDERABLES Final Result Performing Organization Address [facility] de Phone Number [facility] [address] [place] [address] documented in this encounter Visit Diagnoses Not on filedocumented in this encounter Care Teams Partnership Development Manager Relationship Specialty Start Date End Date Willy Okeefe MD PCP - General 06/19/11 04/27/22 Jamila Bartholomew NP [address] [place] [address] [place] [address] PCP - General Family Medicine - Primary Care 04/28/22 documented as of this encounter
--- OUTSIDE RECORDS SUMMARY | 2024-08-08 14:08 | XMS_ITS | Encounter Summary ---
Author Organization [facility] Address [address] [place] [address] Care Team Providers Care Airport Operations Crew Member Name Role Phone Unavailable Primary Care Provider Unavailabl e Encounter Details Date Type Department Care Team (Latest Contact Info) Description 12/02/2000 19:07 EDT Hospital Encounter [facility] - Other [address] [place] [address] Mukesh Rojas MD Unknown, Provider, Discharge Disposition: [...] ? CHAGO ARITA ? Accession #: ? [id number] : ? 1985 (Age: 15) ??F ?Collect [...] End of Report [facility] 12/02/2000 12/03/2000 us Mukesh Rojas MD PATHOLOGY ORDERABLES Final Res ult [facility] [address] [place] [address] documented in this encounter Visit Diagnoses Not on filedocumented in this encounter
--- OUTSIDE RECORDS SUMMARY | 2024-08-08 14:08 | XMS_ITS | Encounter Summary ---
Author Organization [facility] Address [address] [place] [address] Care Team Providers Care Proof Reader Name Role Phone Willy Okeefe MD Primary Care Provider Un available Jamila Bartholomew NP Primary Care Provider [phone] Encounter Details Date Type Department Care Team (Late st Contact Info) Description 09/29/2021 Lab Requisition [facility] Pathology & Laboratory Medicine - [facility] [address] [place] [address] Outr Resulting Lab, Provider Social History Tobacco [...] Name Priority Date/Time Associated Diagnosis Comments HOLD [facility] Today 09/28/2021 16:00 EST HOLD SST Today 09/28/2021 16:00 EST HIV 1/2 ANTIGEN AND ANTIBODY, 4TH GENERATION Today 09/28/2021 16:00 EST documented in this encounter Results * HOLD SST (09/28/2021 16:00 EST) Hold Hold 09/29/2021 17:32 EST [facility] Blood VENOUS BLOOD / Unknown 09/28/2021 16:00 EST 09/29/2021 16:31 EST us Provider Outr Resulting Lab LAB INFO SERVICE AND SUPPORT & PHONE RESULT Final Result Performing Organization Address [facility]/ZIP Co de Phone Number [facility] [address] [place] [address] * HOLD SST (09/28/2021 16:00 EST) Hold Hold 09/29/2021 17:32 EST [facility] Blood VENOUS BLOOD / Unknown 09/28/2021 16:00 EST 09/29/2021 16:30 EST us Provider Outr Resulting Lab LAB INFO SERVICE AND SUPPORT & PHONE RESULT Final Result Performing Organization Address [place]/[facility] de Phone Number [facility] [address] [place] [address] * HIV 1/2 ANTIGEN AND ANTIBODY, 4TH GENERATION (09/28/2021 16:00 EST) HIV 1 and 2 Antibody/p24 Antigen, 4th Generation Negative Negative 10/02/2021 11:38 EST [facility] Comment:If acute HIV-1 infec tion is suspected in a high risk patient, submit plasma specimen for HIV-1 RNA quantitation test. Blood VENOUS BLOOD / Unknown 09/28/2021 16:00 EST 09/29/2021 16:30 EST Narrative [facility] - 10/02/2021 11:38 EST Fourth Generation assay performed on the Siemens Centaur XPT. us Provider Outr Resulting Lab IMMUNOLOGY AND SEROL OGY ORDERABLES Final Result Performing Organization Address [facility] Co de Phone Number [facility] [address] [place] [address] documented in this encounter Visit Diagnoses Not on filedocumented in this encounter Care Teams Proof Reader Relationship Specialty Start Date End Date Willy Okeefe MD PCP - General 06/19/11 04/27/22 Jamila Bartholomew NP [address] [place] [address] PCP - General Family Medicine - Primary Care 04/28/22 documented as of this encounter
--- OUTSIDE RECORDS SUMMARY | 2024-08-08 14:08 | XMS_ITS | Encounter Summary ---
Author Organization [facility] Address [address] [place] [address] Care Team Providers Care Grocery Clerk Marking Name Role Phone Willy Okeefe MD Primary Care Provider Un available Encounter Details Date Type Department Care Team (Late st Contact Info) Description 06/15/2011 Results Only [facility] - [facility] ([facility]) [address] [place], [place] [id number] Sunita Kirkland, YARED [address] [place] [address] Social History Tobacco Use Types [...] when reading/interpreti ng unformatted reports. Name: ? ELIZABETHCHAGO Odilon ? Accession #: ? [id number] : ? 1985 (Age: 26) ??F ?Collect Date: ? 06/15/2011 Location: ? [facility] ? Receive Date: ? 06/20/2011 Provider: ?SUNITA KIRKLAND TEST DEVELOPER Copy to: ? Specimen/Source: ?Pap Test, Cervix/Endocervix, ThinPrep Imaging System with manual evaluation Last Menstrual Period: ? 06/02/2011 Treatment History: ? LEEP: age 14 yrs year 1999 Colposcopy: neg bx 2001 ? SPECIMEN ADEQUACY ? Satisfactory for Evaluation - transformation zone component present GENERAL CATEGORIZATION ? Negative for Intraepithelial Lesion or Malignancy ? Document reviewed and electronically signed by: ? GORDO WEBBER MD ? Report Date: ??06/26/2011 13:24 End of Report [facility] 06/15/2011 06/20/2011 us Sunita Kirkland TEST DEVELOPER PATHOLOGY ORDERABLES Final Res ult [facility] [address] [place] [address] documented in this encounter Visit Diagnoses Not on filedocumented in this encounter Care Teams Grocery Clerk Marking Relationship Specialty Start Date End Date Willy Okeefe MD PCP - General 06/19/11 04/27/22 documented as of this encounter
--- OUTSIDE RECORDS SUMMARY | 2024-08-08 14:08 | XMS_ITS | Encounter Summary ---
Author Organization [facility] Address [address] [place] [address] Care Team Providers Care Alum Plant Supervisor Name Role Phone Unavailable Primary Care Provider Unavailabl e Encounter Details Date Type Department Care Team (Late st Contact Info) Description 09/06/2004 Results Only [facility] - Maple conversion [address] [place] [address] Unknown, Provider, Social History Tobacco Use Types [...] Result No Neisseria gonorrhoeae DNA detected by optical effects camera operator mediated amplification. [facility] Report Status Final [id number] [facility] Specimen Description Cervix [facility] 09/06/2004 18:4 4 EST 09/07/2004 21:25 EST us Provider Unknown MICROBIOLOGY - GENERAL ORDER OLINDA Final Result Performing Organization Address City/[facility] Co de Phone Number [facility] [address] [place] [address] * CHLAMYDIA TRACHOMATIS AMPLIFIED PROBE (09/06/2004 18:44 EST) Specimen Description Cervix [facility] Result No Chlamydia trachomatis DNA detected by optical effects camera operator mediated amplification. [facility] Report Status Final [id number] [facility] 09/06/2004 18:4 4 EST 09/07/2004 21:25 EST Provider Unknown MICROBIOLOGY - GENERAL ORDER OLINDA Final Result Performing Organization Address [facility] de Phone Number [facility] [address] [place] [address] * CYTOPATHOLOGY (09/06/2004 0:00 EST) Pathology Report: CYTOPATHOLOGY REPORT Reports generated via electronic interface contain original data; however they are lacking the format of the original report. Caution should be taken when reading/interpreti ng unformatted reports. Name: ? CHAGO ARITA ? Accession #: ? [id number] : ? 1985 (Age: 19) ??F ?Collect Date: ? 09/06/2004 Location: ? [facility] ? Receive Date: ? 09/08/2004 Provider: ?INEZ LARIOS [facility] Copy to: ? Specimen/Source: ?ThinPrep Pap Test, Cervix/Endocervix Last Menstrual Period: ? 03/22/04 Menstrual/Pregnanc y Status: ? Treatment History: ? LEEP: 2000 Other: ? HPVA - HPV testing requested if ASC-US on the current ThinPrep Pap test. ? SPECIMEN ADEQUACY ? Satisfactory for Evaluation - transformation zone component absent GENERAL CATEGORIZATION ? Negative for Intraepithelial Lesion or Malignancy ? Document reviewed and electronically signed by: ? Gina Pagan, CT(ASCP) ? Report Date: ??09/14/2004 13:27 End of Report [facility] 09/06/2004 09/08/2004 us Inez Larios CNM PATHOLOGY ORDERABLES Final Re sult [facility] [address] [place] [address] documented in this encounter Visit Diagnoses Not on filedocumented in this encounter
--- OUTSIDE RECORDS SUMMARY | 2024-08-08 14:08 | XMS_ITS | Encounter Summary ---
Author Organization [facility] Address [address] [place] [address] Care Team Providers Care Plug Grower Name Role Phone Unavailable Primary Care Provider Unavailabl e Encounter Details Date Type Department Care Team (Late st Contact Info) Description 05/29/2005 Results Only [facility] - Maple conversion [address] [place] [address] Unknown, Provider, Social History Tobacco Use Types [...] CULTURE (05/29/2005 17:17 EST) Specimen Description Genital [facility] Result No herpes simplex recovered [facility] Report Status Final [id number] [facility] 05/29/2005 17:1 7 EST 05/30/2005 21:29 EST us Provider Unknown MICROBIOLOGY - GENERAL ORDER OLINDA Final Result [facility] [address] [place] [address] documented in this encounter Visit Diagnoses Not on filedocumented in this encounter
--- OUTSIDE RECORDS SUMMARY | 2024-08-08 14:08 | XMS_ITS | Encounter Summary ---
Author Organization [facility] Address [address] [place] [address] Care Team Providers Care Visor Installer Name Role Phone Unavailable Primary Care Provider Unavailabl e Encounter Details Date Type Department Care Team (Latest Contact Info) Description 12/28/1999 8:35 EDT - 12/28/1999 11:59 EDT Hospital Encounter [facility] - Other [address] [place] [address] Mukesh Rojas MD Unknown, Provider, Discharge Disposition: [...] ? CHAGO ARITA ? Accession #: ? [id number] : ? 1985 (Age: 14) ??F ?Collect [...] End of Report [facility] 12/28/1999 12/29/1999 us Mukesh Rojas MD PATHOLOGY ORDERABLES Final Res ult [facility] [address] [place] [address] documented in this encounter Visit Diagnoses Not on filedocumented in this encounter
--- OUTSIDE RECORDS SUMMARY | 2024-08-08 14:08 | XMS_ITS | Encounter Summary ---
Author Organization [facility] Address [address] [place] [address] Care Team Providers Care Municipal Clerk Name Role Phone Unavailable Primary Care Provider Unavailabl e Encounter Details Date Type Department Care Team (Late st Contact Info) Description 08/27/2001 16:14 EST Hospital Encounter [facility] - Other [address] [place] [address] Josie Espinal, [address] [place] [address] Unknown, Provider, Social History Tobacco Use Types [...] ng unformatted reports. Name: ? CHAGO JACOBS Odilon ? Accession #: ? [id number] : ? 1985 (Age: 16) ??F ?Collect [...] End of Report [facility] 08/27/2001 08/29/2001 us Josie Espinal CNM PATHOLOGY ORDERABLES Final Re sult [facility] [address] [place] [address] documented in this encounter Visit Diagnoses Not on filedocumented in this encounter
--- OUTSIDE RECORDS SUMMARY | 2024-08-08 14:08 | XMS_ITS | Clinical Summary ---
Author Organization [facility] Address [address] [place] [address] Care Team Providers Care Hatch Boss Name Role Phone Jamila Bartholomew STITCHER AROUND Primary Care Provider [phone] Social History Tobacco Use Types Packs/Day Years [...] 3-dose series) 2002 COVID-19 Vaccine ( season) 2024 Hepatitis C Screen Completed 09/28/2021, 08/10/2006 Procedures Procedure Name Priority Date/Time Associated Diagnosis Comments HEPATITIS C AB W REFLEX TO HCV RNA BY PCR Routine 09/28/2021 16:00 EST from Last 3 Months or Most Recently Relevant to Health Maintenance Results * HEPATITIS C AB W REFLEX TO HCV RNA BY PCR (09/28/2021 16:00 EST) Hep C Antibody Negative Negative 10/02/2021 10:07 EST [facility] Blood VENOUS BLOOD / Unknown 09/28/2021 16:00 EST 09/29/2021 16:30 EST us Provider Outr Resulting Lab CHEMISTRY & BLOOD GA S ORDERABLES Final Result [facility] [address] [place] [address] from Last 3 Months or Most Recently Relevant to Health Maintenance Insurance [facility] [place]ICAID [place] [address] [place] [address] Care Teams Hatch Boss Relationship Specialty Start Date End Date Jamila Bartholomew, STITCHER AROUND [facility] [place] [address] PCP - General Family Medicine - Primary Care 04/28/22
--- OUTSIDE RECORDS SUMMARY | 2024-08-08 14:08 | XMS_ITS | Encounter Summary ---
Author Organization [facility] Address [address] [place] [address] Care Team Providers Care Cook Syrup Maker Name Role Phone Unavailable Primary Care Provider Unavailabl e Encounter Details Date Type Department Care Team (Late st Contact Info) Description 04/22/2000 13:16 EDT Hospital Encounter [facility] - Other [address] [place] [address] Mukesh Rojas MD Unknown, Provider, Social History [...] ? CHAGO ARITA ? Accession #: ? [id number] : ? 1985 (Age: 14) ??F ?Collect [...] End of Report [facility] 04/22/2000 04/24/2000 us Mukesh Rojas MD PATHOLOGY ORDERABLES Final Res ult [facility] [address] [place] [address] documented in this encounter Visit Diagnoses Not on filedocumented in this encounter
--- OUTSIDE RECORDS SUMMARY | 2024-08-08 14:08 | XMS_ITS | Encounter Summary ---
Author Organization Replaced By [facility] [place] [address] Care Team Providers Care Lithography Contact Worker Name Role Phone Sunshine Mccall SPECIAL SYSTEMS TECHNICIAN Primary Care Provider [phone] Reason for Referral * Consultation (Routine) - Closed Specialty Diagnoses / Procedures Referred By Lia trinh Referred To Contact Obstetrics and Gynecology Diagnoses Supervision of elderly multigravida in second trimester Vivi Alonzo CNM [address] [place] [address] [address] [place] [address] [facility] Virtualization Consultant [address] [place] [address] Referral ID Status Reason Start Date Expiration Date V isits Requested Visits Authorized [id number] Closed Consult, Test & Treat 09/25/2021 09/25/2022 6 6 Encounter Details Date Type Department Care Team (Late st Contact Info) Description 09/25/2021 Trans[place] [id number] Vivi Alonzo CNM [address] [place] [address] [address] [place], [place] [id number] Supervision of elderly multigravida in second trimester [...] multigravida documented in this encounter Care Teams Lithography Contact Worker Relationship Specialty Start Date End Date Sunshine Mccall, KENZIE [address] [place] [address] PCP - General Family Medicine 09/25/21 09/25/21 documented as of this encounter
--- OUTSIDE RECORDS SUMMARY | 2024-08-08 14:08 | XMS_ITS | Encounter Summary ---
Author Organization [facility] Address [address] [place] [address] Care Team Providers Care Application Specialist Name Role Phone Unavailable Primary Care Provider Unavailabl e Encounter Details Date Type Department Care Team (Late st Contact Info) Description 08/23/2005 Results Only [facility] - Maple conversion [address] [place] [address] Josie Espinal, [address] [place] [address] Social History Tobacco Use Types Packs/Day Years [...] ? CHAGO ARITA ? Accession #: ? [id number] : ? 1985 (Age: 20) ??F ?Collect Date: ? 08/23/2005 Location: ? [facility] ? Receive Date: ? 08/27/2005 Provider: ?JOSIE ESPINAL CNM Copy to: ? Specimen/Source: ?ThinPrep Pap Test, Cervix/Endocervix, processed on SIM PartnersPrep Imaging System, with manual evaluation Last Menstrual [...] End of Report [facility] 08/23/2005 08/27/2005 us Josie Espinal CNM PATHOLOGY ORDERABLES Final Re sult [facility] [address] [place] [address] documented in this encounter Visit Diagnoses Not on filedocumented in this encounter
--- OUTSIDE RECORDS SUMMARY | 2024-08-08 14:08 | XMS_ITS | Encounter Summary ---
Author Organization [facility] Address [address] [place] [address] Care Team Providers Care Patcher Helper Name Role Phone Unavailable Primary Care Provider Unavailabl e Encounter Details Date Type Department Care Team (Late st Contact Info) Description 06/12/2002 11:09 EST Hospital Encounter [facility] - Other [address] [place] [address] Inez Larios, [address] [place] [address] Unknown, Provider, Social History Tobacco Use Types [...] ? CHAGO ARITA ? Accession #: ? [id number] : ? 1985 (Age: 17) ??F ?Collect [...] End of Report [facility] 06/12/2002 06/16/2002 us Inez Larios CNM PATHOLOGY ORDERABLES Final Re sult [facility] [address] [place] [address] documented in this encounter Visit Diagnoses Not on filedocumented in this encounter
--- OUTSIDE RECORDS SUMMARY | 2024-08-08 14:08 | XMS_ITS | Encounter Summary ---
Author Organization [facility] Address [address] [place] [address] Care Team Providers Care Solution Spec Name Role Phone Unavailable Primary Care Provider Unavailabl e Encounter Details Date Type Department Care Team (Late st Contact Info) Description 05/28/2006 Results Only [facility] - Maple conversion [address] [place] [address] Unknown, Provider, Social History Tobacco Use Types [...] Result No Neisseria gonorrhoeae DNA detected by learning disabilities teacher mediated amplification. [facility] Report Status Final [id number] [facility] Specimen Description Cervix [facility] 05/28/2006 16:5 4 EST 05/28/2006 22:35 EST us Provider Unknown MICROBIOLOGY - GENERAL ORDER OLINDA Final Result Performing Organization Address City/[facility] Co de Phone Number [facility] [address] [place] [address] * CHLAMYDIA TRACHOMATIS AMPLIFIED PROBE (05/28/2006 16:54 EST) Specimen Description Cervix [facility] Result No Chlamydia trachomatis DNA detected by learning disabilities teacher mediated amplification. [facility] Report Status Final [id number] [facility] 05/28/2006 16:5 4 EST 05/28/2006 22:35 EST Provider Unknown MICROBIOLOGY - GENERAL ORDER OLINDA Final Result Performing Organization Address [facility] de Phone Number [facility] [address] [place] [address] * CYTOPATHOLOGY (05/28/2006 0:00 EST) Pathology Report: CYTOPATHOLOGY REPORT Reports generated via electronic interface contain original data; however they are lacking the format of the original report. Caution should be taken when reading/interpreti ng unformatted reports. Name: ? CHAGO ARITA ? Accession #: ? [id number] : ? 1985 (Age: 21) ??F ?Collect Date: ? 05/28/2006 Location: ? [facility] ? Receive Date: ? 05/29/2006 Provider: ?INEZ LARIOS [facility] Copy to: ? Specimen/Source: ?ThinPrep Pap Test, Cervix/Endocervix, processed on [employer] ThinPrep Imaging System, with manual evaluation Last [...] Report Date: ??06/10/2006 18:56 End of Report [facility] 05/28/2006 05/29/2006 us Inez Larios CNM PATHOLOGY ORDERABLES Final Re sult [facility] [address] [place] [address] documented in this encounter Visit Diagnoses Not on filedocumented in this encounter
--- OUTSIDE RECORDS SUMMARY | 2024-08-08 14:08 | XMS_ITS | Encounter Summary ---
Author Organization [facility] Address [address] [place] [address] Care Team Providers Care Business Services Representative Name Role Phone Unavailable Primary Care Provider Unavailabl e Encounter Details Date Type Department Care Team (Late st Contact Info) Description 01/14/2007 Office Visit [facility] - Maple conversion [address] [place] [address] Raj Coley MD [address] [facility], [address] [place] [address] Social History Tobacco Use Types Packs/Day Years [...] on. Patient ready for evaluation. --911 Lida ShahNJack IBUPROFEN 600 mg PO. . --951 Angélica Foster R.N. Reassessment after medication administered. Patient reports current pain level as 01/05. --1028 Carlota Zimmer L.P.N.. DISPOSITION / DISCHARGE Patient reports pain level on departureas 01/05. Discharge instructions reviewed with the patient. Reviewed medication. Patient verbalized understanding. Written instructions provided in Portuguese. The patient was discharged home. The patient left the Emergency Department ambulatory and via private vehicle. --1034 Carlota Zimmer L.P.N.. Win Gunn R.N., R.N., L.P.N. Locked/Released at 01/14/2007 10:34 by Carlota Zimmer L.P.N. documented in this encounter Plan of Treatment Not on file documented as of this encounter Visit Diagnoses Not on filedocumented in this encounter
--- OUTSIDE RECORDS SUMMARY | 2024-08-08 14:08 | XMS_ITS | Encounter Summary ---
Author Organization [facility] [place] [address] Care Team Providers Care Wearing Apparel Presser Name Role Phone None Primary Care Provider Unavailabl e Reason for Referral * Diagnostic Test (Routine) - Closed Specialty Diagnoses / Procedures Referred By Contac t Referred To Contact Radiology Diagnoses Elderly multigravida with antepartum condition or complication Procedures US OB Detailed Morphology Vivi Alonzo CNM [address] [place] [address] [address] [place] [address] [place] [address] Referral ID Status Reason Start Date Expiration Date V isits Requested Visits Authorized [id number] Closed Specialty Service Requested 09/26/2021 03/29/2023 1 1 Reason for Visit * Diagnostic Test (Routine) - Closed Specialty Diagnoses / Procedures Referred By Contac t Referred To Contact Radiology Diagnoses Elderly multigravida with antepartum condition or complication Procedures US OB Detailed Morphology Vivi Alonzo CNM [address] [place] [address] [address] [place] [address] [place] [address] Referral ID Status Reason Start Date Expiration Date V isits Requested Visits Authorized [id number] Closed Specialty Service Requested 09/26/2021 03/29/2023 1 1 Encounter Details Date Type Department Care Team (Latest Contact Info) Description 11/17/2021 2:45 PM EDT - 11/17/2021 11:59 PM EDT Hospital [place] [address] Vivi Alonzo, [facility] [address] [place] [address] Elderly multigravida with antepartum condition or complication [...] who have questions, please contact the health urgent care physician that requested your imaging first. ?Maya Baker, Staff Physician Electronically Signed Final Report ?? 11/17/2021 04:25 pm Narrative 11/17/2021 4:26 PM EDT OBSTETRICS REPORT ?(Signed Final 11/17/2021 04:25 pm) PATIENT INFO: ID #: ? [id number] ?: ??[birth year] (36 yrs)(F) Name: ? CHAGO ARLENE ? Visit Date: 11/17/2021 04:20 pm PERFORMED BY: Performed By: ? Bull YO, ??Diana Attending: ?Samuel LLOYD, Maya Zuluaga Referred By: ?VIVI ALONZO Location: ? [place] SERVICE(S) PROVIDED: [facility] - Detailed Morphology - [id number] ? [id number] INDICATIONS: 20 weeks gestation of ?Z3A.20 AMA, [...] Arch: ? Visualized SVC: ? Visualized Cardiac [place]: ?Visualized Diaphragm: ? Visualized 3 Vessel View: [...] 11/17/2021 04:25 pm) PATIENT INFO: ID #: [id number] : [birth year] (36 yrs)(F) Name: CHAGO ARITA Visit Date: 11/17/2021 04:20 pm PERFORMED BY: Performed By: Diana Gottlieb RDMS Attending: Maya Baker MD Referred By: VIVI ALONZO Location: [place] SERVICE(S) PROVIDED: [facility] - Detailed Morphology - [id number] INDICATIONS: 20 weeks gestation of Z3A.20 AMA, [...] Visualized Ductal Arch: Visualized SVC: Visualized Cardiac [place]: Visualized Diaphragm: Visualized 3 Vessel View: Visualized [...] who have questions, please contact the health urgent care physician that requested your imaging first. Maya Baker, Staff Physician Electronically Signed Final Report 11/17/2021 04:25 pm Vivi Alonzo CNM IMG US OB ORDERABLES documented in this encounter Visit Diagnoses Diagnosis Elderly multigravida with antepartum condition or complication documented in this encounter Care Teams Wearing Apparel Presser Relationship Specialty Start Date End Date None None PCP - General 09/26/21 documented as of this encounter
--- OUTSIDE RECORDS SUMMARY | 2024-08-08 14:08 | XMS_ITS | Referral Summary ---
Author Organization [facility] Address [address] [place] [address] Care Team Providers Care Rubbish Collection Supervisor Name Role Phone Jamila Bartholomew NEW ACCOUNTS CLERK Primary Care Provider [phone] Social History Tobacco Use Types Packs/Day Years [...] C Antibody Negative Negative 10/02/2021 10:07 EST [facility] Blood VENOUS BLOOD / Unknown 09/28/2021 16:00 EST 09/29/2021 16:30 EST us Provider Outr Resulting Lab CHEMISTRY & BLOOD GA S ORDERABLES Final Result [facility] [address] [place] [address] from Last 3 Months or Most Recently Relevant to Health Maintenance Insurance [address] [place], [place] [id number] [place], [place] [id number] MEDICAID [place] [address] [place] [id number] [address] [place] [address] [place] [id number] Care Teams Rubbish Collection Supervisor Relationship Specialty Start Date End Date Jamila Bartholomew NP [facility] [place] [address] PCP - General Family Medicine - Primary Care 04/28/22
--- OUTSIDE RECORDS SUMMARY | 2024-08-08 14:08 | XMS_ITS | Encounter Summary ---
Author Organization [facility] Address [address] [place] [address] Care Team Providers Care Credentialing Manager Name Role Phone Unavailable Primary Care Provider Unavailabl e Encounter Details Date Type Department Care Team (Late st Contact Info) Description 11/15/2005 Results Only [facility] - [facility] conversion [address] [place] [address] Unknown, Provider, Social History Tobacco Use Types [...] 11/15/2005 13:2 8 EDT 11/15/2005 21:15 EDT us Provider Unknown CHEMISTRY & BLOOD GAS ORDERA BLES Final Result [facility] [address] [place] [address] documented in this encounter Visit Diagnoses Not on filedocumented in this encounter
--- OUTSIDE RECORDS SUMMARY | 2024-08-08 14:08 | XMS_ITS | Encounter Summary ---
Author Organization [facility] Address [address] [place] [address] Care Team Providers Care Shopping Investigator Name Role Phone Unavailable Primary Care Provider Unavailabl e Encounter Details Date Type Department Care Team (Late st Contact Info) Description 05/22/2004 Results Only [facility] - Maple conversion [address] [place] [address] Unknown, Provider, Social History Tobacco Use Types [...] EDT) Rubella IgG Scr Antibody detected [facility] 05/22/2004 15:1 6 EDT 05/22/2004 21:09 EDT us Provider Unknown HISTORICAL LAB FOR SQ LOAD F inal Result Performing Organization Address [facility]/ZIP Co de Phone Number [facility] [address] [place] [address] * SYPHILIS SERO (RPR) (05/22/2004 15:16 EDT) Syphilis Sero (RPR) NONREACT. NR Dils [facility] 05/22/2004 15:1 6 EDT 05/22/2004 21:09 EDT us Provider Unknown IMMUNOLOGY AND SEROLOGY ORDE RABLES Final Result Performing Organization Address [facility] de Phone Number [facility] [address] [place] [address] * HEPATITIS B SURFACE ANTIGEN (05/22/2004 15:16 EDT) Hepatitis B Surface Ag Neg [facility] 05/22/2004 15:1 6 EDT 05/22/2004 21:09 EDT us Provider Unknown CHEMISTRY & BLOOD GAS ORDERA BLES Final Result Performing Organization Address [facility] Co de Phone Number [facility] [address] [place] [address] documented in this encounter Visit Diagnoses Not on filedocumented in this encounter
--- OUTSIDE RECORDS SUMMARY | 2024-08-08 14:08 | XMS_ITS | Encounter Summary ---
Author Organization [facility] Address [facility] [place] [address] Care Team Providers Care Trade Embalmer Name Role Phone None Primary Care Provider Unavailabl e Reason for Visit * Reason Comments Ultrasound * Consultation (Routine) - Closed Specialty Diagnoses / Procedures Referred By Lia trinh Referred To Contact Obstetrics and Gynecology Diagnoses Supervision of elderly multigravida in second trimester Vivi Alonzo, [address] [place] [address] [facility] [address] [place] [address] Referral ID Status Reason Start Date Expiration Date V isits Requested Visits Authorized [id number] Closed Consult, Test & Treat 09/25/2021 09/25/2022 6 6 Encounter Details Date Type Department Care Team (Late st Contact Info) Description 11/17/2021 4:00 PM EDT Office Visit Obstetrics [place] [address] Maya King MD [facility] DR OBSTETRICS [place] [address] Multigravida of advanced maternal age [...] MAYA KING MD 11/28/2021 Cc: Vivi Alonzo, [facility] [address] [place] [address] , with copy of ultrasound report documented in this encounter Plan of Treatment Not on file documented as of this encounter Visit Diagnoses Diagnosis Multigravida of advanced maternal age in second trimester Placental abnormality in second trimester documented in this encounter Care Teams Trade Embalmer Relationship Specialty Start Date End Date None None PCP - General 09/26/21 documented as of this encounter
--- OUTSIDE RECORDS SUMMARY | 2024-08-08 14:08 | XMS_ITS | Encounter Summary ---
Author Organization [facility] Address [address] [place] [address] Care Team Providers Care Principal Solutions Architect Name Role Phone Unavailable Primary Care Provider Unavailabl e Encounter Details Date Type Department Care Team (Late st Contact Info) Description 05/07/2005 Results Only [facility] - Maple conversion [address] [place] [address] Unknown, Provider, Social History Tobacco Use Types [...] IgG Scr Antibody detected [facility] 05/07/2005 16:2 6 EDT 05/07/2005 22:35 EDT us Provider Unknown HISTORICAL LAB FOR SQ LOAD F inal Result Performing Organization Address [facility]/ZIP Co de Phone Number [facility] [address] [place] [address] * SYPHILIS SERO (RPR) (05/07/2005 16:26 EDT) Syphilis Sero (RPR) NONREACT. NR Dils [facility] 05/07/2005 16:2 6 EDT 05/07/2005 22:35 EDT us Provider Unknown IMMUNOLOGY AND SEROLOGY ORDE RABLES Final Result Performing Organization Address [facility] de Phone Number [facility] [address] [place] [address] * HEPATITIS B SURFACE ANTIGEN (05/07/2005 16:26 EDT) Hepatitis B Surface Ag Neg [facility] 05/07/2005 16:2 6 EDT 05/07/2005 22:35 EDT us Provider Unknown CHEMISTRY & BLOOD GAS ORDERA BLES Final Result Performing Organization Address [facility] Co de Phone Number [facility] [address] [place] [address] documented in this encounter Visit Diagnoses Not on filedocumented in this encounter
--- OUTSIDE RECORDS SUMMARY | 2024-08-08 14:08 | XMS_ITS | Encounter Summary ---
Author Organization [facility] Address [address] [place] [address] Care Team Providers Care Welfare Manager Name Role Phone Willy Okeefe MD Primary Care Provider Un available Encounter Details Date Type Department Care Team (Late st Contact Info) Description 03/17/2018 Results Only [facility]- [facility] [phone] Jazlyn Rivera, [facility] [address] [place] [address] Social History Tobacco Use Types Packs/Day Years [...] ? CHAGO JOHNSON ? Accession #: ? [id number] ? : ? 1985 (Age: 32) ??F ?Collect Date: ? 03/17/2018 ? Location: ? [facility] ? Receive Date: ? 03/18/2018 ? Provider: JAZLYN RIVERA ABSTRACT MANAGER Copy to: ? Final Report SPECIMEN ADEQUACY ? Satisfactory for Evaluation - transformation zone component present GENERAL CATEGORIZATION ? Negative for Intraepithelial Lesion or Malignancy INTERPRETATION ? Shift in jose present suggestive of bacterial vaginosis. Last Menstrual Period: 03/01/2018 Specimen/Source: ??Pap Test, Cervix, ThinPrep Imaging System with manual evaluation Document reviewed and electronically signed by: ? DAMIÁN Finch(ASCP) ? Report ??Date: 03/28/2018 11:20 HPV with Pap Test ? Date Ordered: ? 03/28/2018 ? Status: ?? Signed Out ?Date Complete: ? 03/31/2018 ? By: ??System Interface ? Date Reported: ? 03/31/2018 ? Interpretation RESULT: Negative for HPV. No E6 or E7 mRNA is detected from HPV types 16,18,31,33,35, 39,45,51,52,56,58, 59,66, and 68 by sericulturist mediated amplification. Comments Document reviewed and electronically signed by: ? System Interface ? Report date: 03/31/2018 By the signature above, the attending physician certifies that he/she has personally conducted a gross and/or microscopic examination of the described specimens and rendered or confirmed the above diagnosis. End of Report [facility] 03/17/2018 03/18/2018 Jazlyn Rivera ABSTRACT MANAGER PATHOLOGY ORDERABLES Final R esult [facility] [address] [place] [address] documented in this encounter Visit Diagnoses Not on filedocumented in this encounter Care Teams Welfare Manager Relationship Specialty Start Date End Date Willy Okeefe MD PCP - General 06/19/11 04/27/22 documented as of this encounter
--- OUTSIDE RECORDS SUMMARY | 2024-08-08 14:08 | XMS_ITS | Encounter Summary ---
Author Organization [facility] Address [address] [place] [address] Care Team Providers Care Line Up Examiner Name Role Phone Jamila Bartholomew STOCK HANGER Primary Care Provider [phone] Encounter Details Date Type Department Care Team (Late st Contact Info) Description 02/25/2024 Lab Requisition [facility] Pathology & Laboratory Medicine - [address] [address] Outr Resulting Lab, Provider Social History Tobacco [...] Procedure Name Priority Date/Time Associated Diagnosis Comments ACUTE HEPATITIS PROFILE Today 02/24/2024 18:50 EDT HOLD SST Today 02/24/2024 18:50 EDT HEPATITIS A TOTAL ANTIBODY W REFLEX Today 02/24/2024 18:50 EDT documented in this encounter Results * HOLD SST (02/24/2024 18:50 EDT) Hold Hold 02/25/2024 18:15 EDT [facility] Blood VENOUS BLOOD / Unknown 02/24/2024 18:50 EDT 02/25/2024 17:08 EDT us Provider Outr Resulting Lab LAB INFO SERVICE AND SUPPORT & PHONE RESULT Final Result Performing Organization Address [facility] Co de Phone Number [facility] [address] [place] [address] * HEPATITIS A TOTAL ANTIBODY W REFLEX (02/24/2024 18:50 EDT) Pathologist [facility] Hepatitis A Antibody, Total Negative Negative 02/25/2024 19:09 EDT [facility] Blood VENOUS BLOOD / Unknown 02/24/2024 18:50 EDT 02/25/2024 17:08 EDT Narrative [facility] - 02/25/2024 19:09 EDT The result of this assay can be falsely elevated (Positive) due to the consumption of Biotin. us Provider Outr Resulting Lab CHEMISTRY & BLOOD GA S ORDERABLES Final Result Performing Organization Address [facility] de Phone Number [facility] [address] [place] [address] * ACUTE HEPATITIS PROFILE (02/24/2024 18:50 EDT) [facility] Hep B Surface Ag Negative Negative 02/25/2024 19:06 EDT [facility] Hep C Antibody Negative Negative 02/25/2024 19:06 EDT [facility] Hepatitis A Antibody, IgM Negative Negative 02/25/2024 19:06 EDT [facility] Comment:The results of this assay can be falsely lowered due to the consumption of Biotin. Hepatitis B Core Ab, Total Negative Negative 02/25/2024 19:06 EDT [facility] Blood VENOUS BLOOD / Unknown 02/24/2024 18:50 EDT 02/25/2024 17:08 EDT us Provider Outr Resulting Lab CHEMISTRY & BLOOD GA S ORDERABLES Final Result Performing Organization Address [facility]/ZIP Co de Phone Number [facility] [address] [place] [address] documented in this encounter Visit Diagnoses Not on filedocumented in this encounter Care Teams Line Up Examiner Relationship Specialty Start Date End Date Jamila Bartholomew, STOCK HANGER [address] [place] [address] PCP - General Family Medicine - Primary Care 04/28/22 documented as of this encounter
--- OUTSIDE RECORDS SUMMARY | 2024-08-08 14:08 | XMS_ITS | Encounter Summary ---
Author Organization [facility] Address [address] [place] [address] Care Team Providers Care Commissioned Defence Force Officer Name Role Phone Unavailable Primary Care Provider Unavailabl e Encounter Details Date Type Department Care Team (Late st Contact Info) Description 08/24/2005 Results Only [facility] - Maple conversion [address] [place] [address] Unknown, Provider, Social History Tobacco Use Types [...] Result No Neisseria gonorrhoeae DNA detected by contract associate mediated amplification. [facility] Report Status Final [id number] [facility] Specimen Description Vagina [facility] 08/24/2005 18:1 0 EST 08/26/2005 14:14 EST us Provider Unknown MICROBIOLOGY - GENERAL ORDER OLINDA Final Result Performing Organization Address [facility] Co de Phone Number [facility] [address] [place] [address] * CHLAMYDIA TRACHOMATIS AMPLIFIED PROBE (08/24/2005 18:10 EST) Specimen Description Vagina [facility] Result No Chlamydia trachomatis DNA detected by contract associate mediated amplification. [facility] Report Status Final [id number] [facility] 08/24/2005 18:1 0 EST 08/26/2005 14:14 EST us Provider Unknown MICROBIOLOGY - GENERAL ORDER OLINDA Final Result Performing Organization Address [facility] Co de Phone Number [facility] [address] [place] [address] documented in this encounter Visit Diagnoses Not on filedocumented in this encounter
--- OUTSIDE RECORDS SUMMARY | 2024-08-08 14:08 | XMS_ITS | Encounter Summary ---
Author Organization [facility] Address [address] [place] [address] Care Team Providers Care Drapery Examiner Name Role Phone Willy Okeefe MD Primary Care Provider Un available Jamila Bartholomew NP Primary Care Provider [phone] Encounter Details Date Type Department Care Team (Late st Contact Info) Description 04/04/2022 Lab Requisition [facility] Pathology & Laboratory Medicine - [facility] [address] [place] [address] [place], [place] [address] Encounter for full-term uncomplicated delivery; Circumvallate placenta, [...] explore management options, if applicable. 05/09/2022 16:28 [facility] Final Diagnosis PLACENTA, 39 4/7 WEEKS, VAGINAL DELIVERY: - Farmer placenta, 630 grams (>90th percentile for given gestational age) - Placental disk large for dates - Patchy excess subchorionic fibrin - membranes with no significant histopathologic abnormality - 3 vessel umbilical cord 05/09/2022 16:28 [facility] Attestation There was significant resident/fellow involvement in the diagnostic evaluation of this case. By the signature below, the attending physician certifies that they have personally conducted a gross and/or microscopic examination of the described specimens and rendered or confirmed the above diagnosis. 05/09/2022 16:28 [facility] at 1628 Clinical History Circumvallate placenta; tight nuchal cord; resuscitation; succinurate lobe identified on ultrasound-undeliv ered at this time; 39.4 weeks 05/09/2022 16:28 [facility] Gross Description A. Received in formalin labelled with proper patient identification (initials B, M) and placenta is an intact faremr placenta. There is a 47.0 cm in [...] spongy. There are no discrete lesions present. Windows Application Administrator sections are submitted as follows: BLOCK LAY A1- membrane roll and cross-section of end of cord A2- membrane roll and cross-section of cord 5 cm from insertion site A3-A4- full thickness section of placental disc adjacent to umbilical cord insertion site, bisected A5-A8- two full thickness sections of central 2/3 of placental disc, each bisected ELISSA PARR MD 04/05/2022 13:21 05/09/2022 16:28 EDT [facility] Resident/Gustavo w: Elissa Parr MD 05/09/2022 16:28 EDT [facility] Performing Lab [facility] 16:28 EDT [facility] Scanned Images 05/09/2022 16:28 EDT [facility] Tissue PLACENTAL STRUCTURE / Unknown 04/03/2022 21:14 EDT 04/04/2022 18:54 EDT Tonya Camacho [facility] PATHOLOGY ORDERABLES F inal Result [facility] [address] [place] [address] documented in this encounter Visit Diagnoses Diagnosis Encounter for full-term uncomplicated delivery Normal delivery Circumvallate placenta, unspecified trimester Other immediate hemorrhage documented in this encounter Care Teams Drapery Examiner Relationship Specialty Start Date End Date Willy Okeefe MD PCP - General 06/19/11 04/27/22 Jamila Bartholomew NP [address] [place] [address] PCP - General Family Medicine - Primary Care 04/28/22 documented as of this encounter
--- OUTSIDE RECORDS SUMMARY | 2024-08-08 14:08 | XMS_ITS | Encounter Summary ---
Author Organization [facility] Address [address] [place] [address] Care Team Providers Care Subassembly Supervisor Name Role Phone Unavailable Primary Care Provider Unavailabl e Encounter Details Date Type Department Care Team (Late st Contact Info) Description 09/26/2009 Results Only [facility] - [facility] ([facility]) [address] [place], [place] [address] Jazlyn Rivera, [facility] [address] [place] [address] [place] [phone] Social History Tobacco Use Types Packs/Day Years [...] ARLENE, CHAGO L ? Accession #: ? [id number] ? : ? 1985 (Age: 24) ??F ?Collect Date: ? 09/26/2009 ? Location: ? [facility] ? Receive Date: ? 09/27/2009 ? Provider: ?JAZLYN REJI RISK COMPLIANCE MANAGER ? Copy to: ? Specimen/Source: ?Pap Test, [...] ? Mica Addison, SCT(ASCP) ? Report Date: ??09/28/2009 14:16 ? End of Report ? [facility] 09/26/2009 09/27/2009 us Jazlyn Rivera RISK COMPLIANCE MANAGER PATHOLOGY ORDERABLES Final R esult [facility] [address] [place] [address] documented in this encounter Visit Diagnoses Not on filedocumented in this encounter
[2024-08-08 14:10] LABS: Abs Immature Grans 0.02 10^3/uL (0.0-0.06); Absolute Basophil Count 0.04 10^3/uL (0.0-0.2); Absolute Eosinophil Count 0.05 10^3/uL (0.0-0.7); Absolute Lymphocyte Count 1.97 10^3/uL (1.2-3.4); Absolute Monocyte Count 0.43 10^3/uL (0.1-0.8); Basophils % 0.6 %; Eosinophils % 0.8 %; HGB 12.9 g/dL (11.2-15.7); Immature Grans % 0.3 %; Lymphocytes % 31.2 %; MCH 29.5 pg (27.0-33.0); MCHC 33.1 % (32.0-36.0); MCV 89 fL (80-95); MPV 11.5 fL (8.0-11.0); Monocytes % 6.8 %; Neutrophils % 60.3 %; Platelet Count 152 10^3/uL (130-400); RBC 4.38 10^6/uL (3.93-5.22); RDW 12.9 % (11.7-14.6); RDW-SD 42.5 fL; WBC 6.31 10^3/uL (4.4-10.8)
[2024-08-08 14:30] LABS: ALT 13 U/L (14-59); AST 9 U/L (15-37); Albumin 3.5 g/dL (3.4-5.0); Alkaline Phosphatase 39 U/L (46-116); Anion Gap 4.6 mmol/L (3-11); BUN 12 mg/dL (7-18); Bilirubin, Total 0.19 mg/dL (0.2-1.0); CO2 29.4 mmol/L (21.0-32.0); CREATININE 0.8 mg/dL (0.55-1.02); Calcium 8.5 mg/dL (8.5-10.1); Chloride 110 mmol/L (98-107); Estimated GFR 94.87 (mL/min/1.73m2); Glucose 95 mg/dL (74-106); Lipase 32 U/L (<78); Magnesium 1.8 mg/dL (1.8-2.4); Potassium 3.9 mmol/L (3.5-5.1); Sodium 144 mmol/L (136-145); Total Protein 6.4 g/dL (6.4-8.2)
[2024-08-08 14:32] LABS: Troponin I < 4 ng/L (<or=51)
== END 2024-08-08 15:12 | disposition home or self-care (01) ==
PROVIDERS: Emergency Provider Nurse Practitioner Family; PCP Nurse Practitioner Family
DX: R42 Dizziness and giddiness (principal); R11.0 Nausea; R10.9 Unspecified abdominal pain
CPT/HCPCS: 36415; 80053; 83690; 93005; 99284; 71045; 83735; 84484; 85025; 93010; 99283